=== PATIENT | female | born 1965 | race Caucasian/White ===

== ENCOUNTER → 2016-07-08 | Outpatient (CLI) | payer OTHER ==
--- NOTE | 2016-07-08 16:42 | MAMMOGRAPHY REPORT ---
BILATERAL DIGITAL SCREENING MAMMOGRAM TOMOSYNTHESIS WITH CAD: 07/08/2016 CLINICAL HISTORY: Routine screening examination. TECHNIQUE: Bilateral breast tomosynthesis in addition to standard 2D mammography was performed. Curr ent study was also evaluated with a Computer Aided Detection (CAD) system. COMPARISON: Comparison is made to exams dated: 07/06/2015 mammogram, 04/13/2013 mammogram, 05/31/2011 mammogram - [facility], 02/05/2007 mammogram, and 07/05/2014 mammogram - [facility]. BREAST COMPOSITION: The tissue of both breasts is heterogeneously dense, which may obscure small ma sses. FINDINGS: There is a faint clustered microcalcifications in the 12:00 posterior left breast, for wh ich additional spot magnification views are recommended. There is stable asymmetry in the upper inner posterior right breast, that appears similar on all jonny ilable prior mammograms dating back to at least 2006, and therefore likely benign. No suspicious ma ss or focal architectural distortion is seen bilaterally. IMPRESSION: ACR BI-RADS CATEGORY 0: INCOMPLETE EVALUATION: NEED ADDITIONAL IMAGING EVALUATION The faint clustered microcalcifications in the 12:00 left breast need additional evaluation. The patient will be called to schedule an appointment. Approximately 10% of breast cancers are not detected with mammography. A negative mammographic repor t should not delay biopsy if a clinically suggestive mass is present. Katja Frank M.D. ay/:07/08/2016 16:03:33 Physician Practice Coordinator: Allison OLIVO)(Maite), [facility] letter sent: Addl Imaging 0 BI-RADS Code: ACR BI-RADS Category 0: Incomplete Evaluation: Need Additional Imaging Evaluation
== END | disposition home or self-care (01) ==
LOC: C.MAMM 09:22
PROVIDERS: ATTEND Obstetrics & Gynecology
DX: Z12.31 Encounter for screening mammogram for malignant neoplasm of breast (principal); R92.0 Mammographic microcalcification found on diagnostic imaging of breast

== ENCOUNTER → 2016-07-18 | Outpatient (CLI) | payer OTHER ==
--- NOTE | 2016-07-18 12:36 | MAMMOGRAPHY REPORT ---
UNILATERAL LEFT DIGITAL DIAGNOSTIC MAMMOGRAM: 07/18/2016 CLINICAL HISTORY: Callback from screening mammogram for left breast calcifications. TECHNIQUE: Spot magnification left CC and ML views were obtained. COMPARISON: Comparison is made to exams dated: 07/08/2016 mammogram, 07/06/2015 mammogram, 07/05/2014 mammogram, 04/13/2013 mammogram, and 05/31/2011 mammogram - [facility]. BREAST COMPOSITION: The tissue of the left breast is heterogeneously dense, which may obscure small masses. FINDINGS: Spot magnification views of the left breast demonstrate a small 3 mm cluster of faint, pr edominantly punctate, calcifications within the left upper outer quadrant, best seen on the ML view. When compared to prior exams, the calcifications are likely stable compared to the 2015 exam, and possibly also the 2014 exam although difficult to make an accurate comparison due to differences in mammographic technique. The options of short interval follow-up versus biopsy were discussed with t he patient, and we will opt for biopsy at this time. Therefore, recommend stereotactic biopsy for f urther evaluation. IMPRESSION: ACR BI-RADS CATEGORY 4: SUSPICIOUS Small 3 mm cluster of faint calcifications in the left upper outer quadrant. The calcifications are indeterminate and stereotactic biopsy is recommended for further evaluation. A phone call was made to the physician's office to confirm faxed results were received. The patient has been verbally notified of the results. She tentatively scheduled the biopsy before leaving the department. Approximately 10% of breast cancers are not detected with mammography. A negative mammographic repor t should not delay biopsy if a clinically suggestive mass is present. Miriam Blackburn M.D. ah/:07/18/2016 11:15:32 Senior Loss Control Specialist: Gege VALERIO(R)(Maite), [facility] letter sent: Abnormal 4/5 BI-RADS Code: ACR BI-RADS Category 4: Suspicious
== END | disposition home or self-care (01) ==
LOC: C.MAMM 10:24
PROVIDERS: ATTEND Obstetrics & Gynecology
DX: R92.1 Mammographic calcification found on diagnostic imaging of breast (principal)

== ENCOUNTER → 2016-08-07 | Outpatient (CLI) | payer OTHER ==
--- NOTE | 2016-08-07 13:29 | Discharge Instructions ---
Discharge Instructions Procedure Procedure Date: Aug 07, 2016. Reason for visit: Left Calcifications. Discharge Discharge Date: Aug 07, 2016. Discharge Diagnosis: post left breast stereotactic guided biopsy Medications Restart Stopped Medication(s): May restart Aspirin tomorrow Instructions Activity Recommendations: Additional Limitations (see below) Return to School/Work: no limitations Recommended Home Diet: No Limitations Provider Instructions: ACTIVITY RECOMMENDATIONS: * No lifting, pushing, pulling or exercising the affected side for three days. RETURN TO SCHOOL/WORK: * You may return to work/school after the procedure, but do not perform any strenuous activities for 24 to 48 hours. MEDICATIONS: * Tylenol (two 325 mg) every four to six hours if needed for mild pain (if not allergic to Tylenol). DIET: * Resume previous diet. SPECIAL CARE INSTRUCTIONS: * Keep biopsy site dry for 24 hours. May shower after 24 hours, but do not soak (bathe) incision. * May remove Tegaderm (plastic patch) tomorrow AFTER showering. * Leave the steri-strips on for one week. Allow the steri-strips to fall off by themselves. If not off after one week, you may remove them. You may place a Bandaid crosswise over the strips, if desired. * Apply ice 10 minutes on and 10 minutes off as needed. * Wear a bra at bedtime to sleep more comfortably for 2-3 days. * Your referring physician should have the results after approximately 5 to 7 business days. * Call for unusual bleeding, fever, drainage, etc or if you have any questions call [phone] during normal business hours or after hours call Dr Frank, . FOLLOW UP VISIT: Follow-up with Referring Physician as scheduled. Maddie Negron Recommendations: Call your doctor if: * Temperature above 101 degrees * Pain not relieved by pain medicine ordered * There is increased drainage or redness from any incision * You have any unanswered questions or concerns. Your Doctors Instructions noted above were prepared by provider Katja Frank. Patient Signature Section: Patient Instructions Signature Page Delphine Sanchez Patient (or Guardian) Signature/Date: I have read and understand the instructions given to me by my caregivers. Caregiver/RN/Doctor Signature/Date: The above-named patient and/or guardian has received patient instructions on this date. + Original Patient Signature Page (only) stays with chart. Please make copy for patient.
--- NOTE | 2016-08-07 15:58 | MAMMOGRAPHY REPORT ---
UNILATERAL LEFT DIGITAL DIAGNOSTIC MAMMOGRAM: 08/07/2016 CLINICAL HISTORY: 50-year-old woman with an indeterminate cluster of microcalcifications in the uppe r outer quadrant of the left breast. She presented for stereotactic biopsy. Please refer to the report from left breast stereotactic biopsy performed at the same time for full detail. IMPRESSION: POST PROCEDURE IMAGING FOR MARKER PLACEMENT Please refer to the report from left breast stereotactic biopsy performed at the same time for full detail. Approximately 10% of breast cancers are not detected with mammography. A negative mammographic repor t should not delay biopsy if a clinically suggestive mass is present. Katja Frank M.D. ay/:08/07/2016 13:46:53 Diesel Retrofit Designer: Ashanti VALERIO(R)(M), [facility] BI-RADS Code: Post Procedure Imaging For Marker Placement
--- NOTE | 2016-08-07 15:58 | MAMMOGRAPHY REPORT ---
STEREOTACTIC GUIDED BIOPSY LEFT BREAST: 08/07/2016 CLINICAL HISTORY: Small faint indeterminate cluster of punctate microcalcifications in the upper out er middle one third of the left breast. Patient presents for stereotactic biopsy. COMPARISON: Comparison is made to exams dated: 07/18/2016 mammogram, 07/06/2015 mammogram, 07/05/2014 m ammogram, 04/13/2013 mammogram - [facility], 02/05/2007 mammogram, and 07/08/2016 laci mogram - [facility]. PATIENT CONSENT: After explaining the risks, benefits and alternatives of the procedure to the patie nt, informed consent was obtained both verbally and in writing. Specific risks include: Bleeding, i nfection, puncture of adjacent structure, nontarget biopsy, sampling error, metal allergy and medica tion reaction. PROCEDURE DESCRIPTION: A time-out was performed and the left breast was confirmed as the site of bio psy. The patient was placed prone on the stereotactic biopsy table and the breast was placed in late ral compression. A eap clinician image was obtained that demonstrated the clustered microcalcifications in q uestion. They are amenable to sterotactic biopsy. Then +15 and -15 stereo pair images were obtain ed. The calcifications were targeted utilizing the coordinates obtained by the computer. The skin w as prepped with Betadine. 1% buffered Lidocaine with and without epinipherine was administered as lo aida anesthesia. A small skin incision was made. Through the incision, the needle was inserted to th e depth determined by the computer. 10 samples were obtained using a [facility] 9-gauge vacuum-assi sted biopsy device. The specimen radiograph demonstrated nearly the entire cluster of microcalcifica tions, therefore, a metallic marker was placed at the biopsy site. There was no immediate complicati on. Hemostasis was achieved after several minutes of manual compression. The samples were sent to p athology in 2 containers, the first labeled "with calcifications", and the second labeled adjacent t issue. All of the samples were obtained from the same single biopsy site. Postprocedure CC and ML views of the left breast demonstrate a new dumbbell-shaped metallic biopsy m arker and no significant hematoma in the upper outer middle one third of the breast, at the site of the biopsied clustered microcalcifications. IMPRESSION: STEREOTACTIC GUIDED BIOPSY Status post left breast stereotactic guided biopsy of a faint cluster of punctate microcalcification s in the upper outer middle one third of the breast, with biopsy marker placed at the site. The patient will receive notification of the biopsy results from her referring physician. Katja Frank M.D. ay/:08/07/2016 14:23:40 Pipe Turner: Ashanti OLIVO)(Maite), [facility]
== END | disposition home or self-care (01) ==
LOC: C.MAMM 12:29
PROVIDERS: ATTEND Obstetrics & Gynecology
DX: R92.0 Mammographic microcalcification found on diagnostic imaging of breast (principal); N60.32 Fibrosclerosis of left breast

== ENCOUNTER → 2016-08-22 | Outpatient (CLI) | payer OTHER ==
[2016-08-22 15:23] LABS: ALT/SGPT 24 U/L (12-78); BLOOD UREA NITROGEN 13 mg/dl (7-18); BUN/CREATININE RATIO 15.1 (10-20); CALCIUM 9.5 mg/dl (8.5-10.1); CARBON DIOXIDE 26 mmol/L (21-32); CHLORIDE 104 mmol/L (98-107); CHOLESTEROL 161 mg/dl (0-200); CREATININE 0.85 mg/dl (0.60-1.20); GLUCOSE 82 mg/dl (70-99); POTASSIUM 3.8 mmol/L (3.5-5.1); SODIUM 140 mmol/L (136-145)
[2016-08-22 15:27] LABS: ALB/GLOB RATIO 1.1 (0.9-2); ALKALINE PHOSPHATASE 70 U/L (45-117); AST/SGOT 15 U/L (15-37); CHOLESTEROL/HDL RATIO 3.2; HDL CHOLESTEROL 51 mg/dl; LDL CHOLESTEROL CALCULATED 86 mg/dl; TRIGLYCERIDES 121 mg/dl (0-150); VERY LOW DENSITY LIPOPROT CALC 24 mg/dl
== END | disposition home or self-care (01) ==
LOC: C.LABSPEC 13:48
PROVIDERS: ATTEND Family Medicine
DX: Z00.00 Encounter for general adult medical examination without abnormal findings (principal); E78.2 Mixed hyperlipidemia

== ENCOUNTER → 2017-05-20 | Outpatient (CLI) | payer OTHER ==
[2017-05-20 18:22] LABS: BASO % 0.7 %; BASO ABS # 0.02 K/uL (0-0.2); COMPLETE YES; EOS % 1.1 %; HEMATOCRIT 33.6 % (37-47); IG% 3.9 %; LYMPH % 25.9 %; LYMPH ABS # 0.73 K/uL (1.2-3.4); MEAN CELL VOLUME 88.4 fL (80-100); MEAN CORPUSCULAR HEMOGLOBIN 31.8 pg (25-34); MEAN PLATELET VOLUME 8.9 fL (7.4-10.4); MONO % 10.3 %; NEUT % 58.1 %; PLATELET COUNT 141 K/uL (130-400); WHITE BLOOD COUNT 2.82 K/uL (4.8-10.8)
[2017-05-20 19:43] LABS: ALB/GLOB RATIO 1.1 (0.9-2); ALKALINE PHOSPHATASE 107 U/L (45-117); ALT/SGPT 37 U/L (12-78); AST/SGOT 77 U/L (15-37); BLOOD UREA NITROGEN 11 mg/dl (7-18); BUN/CREATININE RATIO 12.8 (10-20); CALCIUM 8.5 mg/dl (8.5-10.1); CARBON DIOXIDE 25 mmol/L (21-32); CHLORIDE 86 mmol/L (98-107); CREATININE 0.86 mg/dl (0.60-1.20); GLUCOSE 71 mg/dl (70-99); POTASSIUM 4.2 mmol/L (3.5-5.1); SODIUM 120 mmol/L (136-145)
== END | disposition home or self-care (01) ==
LOC: C.LABSPEC 17:57
PROVIDERS: ATTEND Family Medicine
DX: R07.89 Other chest pain (principal); R06.02 Shortness of breath

== ENCOUNTER 2017-05-22 10:58 | Inpatient (IN) | payer OTHER ==
[~2017-05-22] VITALS: Ht 175.3 cm; Wt 69.0 kg
[2017-05-22] MEDS ORDERED: CIPR1TAB10 PO (11:37)
[2017-05-22] MEDS ORDERED: PRAV20TA PO (11:37)
[2017-05-22] MEDS ORDERED: ASPI81TA28 PO (11:37)
[2017-05-22] MEDS ORDERED: PRED10TA PO (11:37)
[2017-05-22] MEDS ORDERED: VNTHFA/IN INH (11:37)
[2017-05-22] MEDS ORDERED: TRAMADOL HCL 50 MG TAB PO STA (12:02)
--- NOTE | 2017-05-22 12:23 | DIAGNOSTIC IMAGING REPORT ---
R SHOULDER MIN 2 VIEWS ROUTINE CLINICAL HISTORY: R shoulder pain pain COMPARISON: None. DISCUSSION: The bones and joint spaces appear intact. There is no evidence of fracture, dislocation or bony disease. Probable right hilar enlargement versus overlap artifact. CT of the chest suggested as initial evaluation. IMPRESSION: 1. No acute process of the right shoulder. 2. Potential enlargement right hilum with CT of the chest recommended to exclude nodular or hilar pathology. The above report was generated using voice recognition software. It may contain grammatical, syntax or spelling errors. Electronically signed by: Kenny Sunshine M.D. 05/22/2017 12:22 PM Dictated Date/Time: 05/22/2017 12:21 PM
[2017-05-22] MEDS ORDERED: OPTIRAY 320 IV PRN (12:45)
[2017-05-22 13:04] LABS: ISTAT CREATININE 0.7 mg/dl (0.6-1.3); ISTAT IONIZED CALCIUM 1.08 mmol/l (1.12-1.32); ISTAT POTASSIUM 3.9 mEq/L (3.3-5.0)
[2017-05-22 13:14] LABS: BASO % 0.2 %; BASO ABS # 0.01 K/uL (0-0.2); EOS % 0.7 %; EOS ABS # 0.03 K/uL (0-0.5); HEMOGLOBIN 12.1 g/dL (12.0-16.0); IG# 0.12 K/uL (0.00-0.02); LYMPH % 20.2 %; LYMPH ABS # 0.93 K/uL (1.2-3.4); MEAN CELL VOLUME 87.5 fL (80-100); MEAN CORPUSCULAR HEMOGLOBIN 32.1 pg (25-34); MEAN CORPUSCULAR HGB CONC 36.7 g/dl (32-36); MEAN PLATELET VOLUME 8.5 fL (7.4-10.4); MONO ABS # 0.32 K/uL (0.11-0.59); NEUT % 69.3 %; NEUT ABS # 3.19 K/uL (1.4-6.5); PLATELET COUNT 133 K/uL (130-400); RED CELL DISTRIBUTION WIDTH CV 12.4 % (11.5-14.5); RED CELL DISTRIBUTION WIDTH SD 39.3 fL (36.4-46.3)
[2017-05-22 13:30] LABS: CALCIUM 8.2 mg/dl (8.5-10.1); CREATININE 0.68 mg/dl (0.60-1.20); POTASSIUM 3.8 mmol/L (3.5-5.1)
[2017-05-22] MEDS ORDERED: ONDANSETRON INJ 2 MG/ML 2 ML VIAL IV STA (14:14)
[2017-05-22] MEDS ORDERED: MoRPHine SULFATE 4 MG/ML 1 ML CARP\\VIAL IV STA (14:14)
--- NOTE | 2017-05-22 14:14 | DIAGNOSTIC IMAGING REPORT ---
(CHEST) THORAX WITH CT DOSE: 212.35 mGy.cm HISTORY: Pain hx of pneumonia; now right upper arm pain TECHNIQUE: Multiaxial CT images of the chest were performed following the intravenous administration of contrast. A dose lowering technique was utilized adhering to the principles of ALARA. COMPARISON: Right shoulder same date FINDINGS: Lobular 4.3 cm right suprahilar mass. Mass is contiguous with that of confluent adenopathy involving the right hilum as well as mediastinum. Maximum dimension in the precarinal region is 6.3 cm with additional adenopathy anterior to the trachea measuring 2.5 cm. Solid complex partially calcified nodule left thyroid. The hilar/right mediastinal mass shows considerable narrowing of the right mainstem bronchus several centimeters from its origin. Narrowing primarily involves the right upper lobe bronchial region. No significant left hilar adenopathy. Additionally anterior mid mediastinal adenopathy is present in the substernal region measuring up to 1.4 cm. Moderate compromise in vascular flow to the right upper lobe pulmonary vasculature as well as the right middle lobe pulmonary vasculature. Minimal basilar atelectatic change. 5 mm additional nodule transaxial image 46 right base. Potential additional right paravertebral component measuring 2.0 x 1.5 cm transaxial image 12. This is at the right T4-T5 level of the thoracic spine. No definite bony destructive change is present. Limited evaluation the upper abdomen demonstrates probable hepatic metastatic disease. Largest deposit on this limited study is in the superior right hepatic lobe region measuring 3.2 cm. Additional nodules are present the right as well as left hepatic lobe. IMPRESSION: 1. Right upper lobe mass measuring 4.3 cm. 2. Mass continues to involve the right hilum as well as mid mediastinum with dimensions of keisha and hilar/mediastinal pathology measuring from 2.5 to 6.3 cm. 3. Mass compromises the right hilar arterial vasculature as well as upper lobe right mainstem bronchus. 4. Additional nodular density right lung base as well as right paravertebral region at T4-T5. 6. Hepatic metastatic disease. 7. Neoplastic process is the diagnosis of exclusion. The above report was generated using voice recognition software. It may contain grammatical, syntax or spelling errors. Electronically signed by: Kenny Sunshine M.D. 05/22/2017 2:13 PM Dictated Date/Time: 05/22/2017 2:04 PM
[2017-05-22] MEDS ORDERED: ACETAMINOPHEN 325 MG TAB PO PRN (15:00)
--- NOTE | 2017-05-22 15:32 | History and Physical ---
History & Physical Date & Time of Service: May 22, 2017 ~ 14:30 Chief Complaint: Pain In Right Arm Primary Care Physician: Mic Garcia M.D. ([place]) History of Present Illness 51 year old female who presents to the ED with right arm pain. About 3 weeks ago patient reports she had an episode of nausea and vomiting. She reports that since that time, she has had shortness of breath with exertion. 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 She was noted to be wheezing on exam and was referred to her PCP. She was started on Cipro and Prednisone for a suspected pneumonia. Patient reports that after one day of taking these medicines her pulmonary symptoms resolved. She reports that last night she developed right upper arm pain. Pain was moderate in intensity, keeping her up most of the night. She tried heat, ice, and Bengay; none of which helped. She called her PCPs office today who referred her to the ED for further evaluation. Patient denies cough and sputum production. No fevers or chills. Reports a good appetite and denies unintentional weight loss. No further GI complaints aside from the aforementioned. She denies chest pain. No lightheadedness, dizziness, diaphoresis, or syncopal events. No urinary symptoms. In the ED, patient had a CT chest that showed right upper lobe mass measuring 4.3 cm. Labs show hyponatremia with sodium 120. Patient is hemodynamically stable. Past Medical/Surgical History Medical Problems: (1) HLD (hyperlipidemia) Status: Chronic (2) Migraine Status: Chronic Surgical Problems: (1) Hx of lumpectomy Status: Chronic (2) Previous section Status: Chronic (3) S/P breast biopsy Status: Chronic Family History Diabetes mellitus MOTHER FH: CAD (coronary artery disease) FATHER BROTHER Social History Smoking Status: Former Smoker Alcohol Use: occasionally Marital Status: Allergies Coded Allergies: No Known Allergies (Unverified , 05/22/17) Home Medications Scheduled Aspirin (Aspirin Ec), 81 MG PO DAILY Ciprofloxacin Hcl (Cipro), 500 MG PO BID Pravastatin (Pravachol ), 20 MG PO DAILY Prednisone (Prednisone), 0 PO UD Scheduled PRN Albuterol Hfa (Ventolin Hfa), 1 PUFFS INH TID PRN for SOB/Wheezing Review of Systems ROS per HPI, all other systems reviewed and negative Physical Exam Vital Signs Date Time Temp Pulse Resp B/P (MAP) Pulse Ox O2 Delivery O2 Flow Rate FiO2 05/22/17 14:58 58 16 134/72 100 Room Air 05/22/17 13:30 57 16 134/72 100 Room Air 05/22/17 11:06 36.4 72 20 137/83 100 Room Air General Appearance: WD/WN, no apparent distress Head: normocephalic, atraumatic Eyes: normal inspection, EOMI, sclerae normal ENT: hearing grossly normal, + pertinent finding (mucous membranes moist) Neck: supple, no JVD, trachea midline Respiratory/Chest: lungs clear, normal breath sounds, no respiratory distress Cardiovascular: regular rate, rhythm, no edema, normal peripheral pulses Abdomen/GI: normal bowel sounds, non tender, soft, no organomegaly Extremities/Musculoskelatal: normal inspection, no calf tenderness, normal capillary refill Neurologic/Psych: no motor/sensory deficits, alert, normal mood/affect, oriented x 3 Skin: normal color, warm/dry Diagnostics Laboratory Results Results Past 24 Hours Test 05/22/17 12:40 05/22/17 12:51 05/22/17 15:00 Range/Units White Blood Count 4.60 4.8-10.8 K/uL Red Blood Count 3.77 4.2-5.4 M/uL Hemoglobin 12.1 12.0-16.0 g/dL Hematocrit 33.0 37-47 % Mean Corpuscular Volume 87.5 80-100 fL Mean Corpuscular Hemoglobin 32.1 25-34 pg Mean Corpuscular Hemoglobin Concent 36.7 32-36 g/dl Platelet Count 133 130-400 K/uL Mean Platelet Volume 8.5 7.4-10.4 fL Neutrophils (%) (Auto) 69.3 % Lymphocytes (%) (Auto) 20.2 % Monocytes (%) (Auto) 7.0 % Eosinophils (%) (Auto) 0.7 % Basophils (%) (Auto) 0.2 % Neutrophils # (Auto) 3.19 1.4-6.5 K/uL Lymphocytes # (Auto) 0.93 1.2-3.4 K/uL Monocytes # (Auto) 0.32 0.11-0.59 K/uL Eosinophils # (Auto) 0.03 0-0.5 K/uL Basophils # (Auto) 0.01 0-0.2 K/uL RDW Standard Deviation 39.3 36.4-46.3 fL RDW Coefficient of Variation 12.4 11.5-14.5 % Immature Granulocyte % (Auto) 2.6 % Immature Granulocyte # (Auto) 0.12 0.00-0.02 K/uL Sodium Level 120 136-145 mmol/L Potassium Level 3.8 3.5-5.1 mmol/L Chloride Level 89 98-107 mmol/L Carbon Dioxide Level 25 21-32 mmol/L Anion Gap 6.0 17.0 16-25 mmol/L Blood Urea Nitrogen 10 7-18 mg/dl Creatinine 0.68 0.60-1.20 mg/dl Est Creatinine Clear Calc Drug Dose 103.5 ml/min Estimated GFR () 118.2 Estimated GFR (Non- 102.0 BUN/Creatinine Ratio 15.5 10-20 Random Glucose 85 70-99 mg/dl Calcium Level 8.2 8.5-10.1 mg/dl Bedside Hemoglobin 11.6 12.0-16.0 g/dl Bedside Hematocrit 34 37-47 % Bedside Sodium 122 135-144 mEq/L Bedside Potassium 3.9 3.3-5.0 mEq/L Bedside Chloride 88 101-112 mEq/L Bedside Total CO2 23 24-31 mEq/l Bedside Blood Urea Nitrogen 10 7-18 mg/dl Bedside Creatinine 0.7 0.6-1.3 mg/dl Bedside Glucose (other) 90 70-99 mg/dl Bedside Ionized Calcium (Ti) 1.08 1.12-1.32 mmol/l Diagnostic Radiology CT CHEST IMPRESSION: 1. Right upper lobe mass measuring 4.3 cm. 2. Mass continues to involve the right hilum as well as mid mediastinum with dimensions of keisha and hilar/mediastinal pathology measuring from 2.5 to 6.3 cm. 3. Mass compromises the right hilar arterial vasculature as well as upper lobe right mainstem bronchus. 4. Additional nodular density right lung base as well as right paravertebral region at T4-T5. 6. Hepatic metastatic disease. 7. Neoplastic process is the diagnosis of exclusion. RIGHT SHOULDER XR IMPRESSION: 1. No acute process of the right shoulder. 2. Potential enlargement right hilum with CT of the chest recommended to exclude nodular or hilar pathology. 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 Ashanti Sethi RUL LUNG MASS - new diagnosis; former smoker - hepatic metastatic disease also noted - will check LFTs - will need biopsy - case discussed with Dr. Giordano HLD - continue statin pending LFTs DVT PROPHYLAXIS - SQ Lovenox DISPO - In my clinical judgment this beneficiary meets acute admission criteria, established by [facility], that includes being hospitalized through two midnights. ADDENDUM: This is a 51 year old female with a PMH of tobacco use (stopped smoking about three years ago) presents with R arm pain. States that three weeks ago, she started with nausea/vomiting. 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 She was given antibiotics for possible pneumonia and she was also prescribed prednisone. She felt better, but last night, she developed severe R arm pain. Tried over the counter medications , bengay cream, etc. but did not work. She came to the ER for further eval. She had Shoulder X-ray showing a R hilum enlargement. She then had a CT of the chest showing a mass. Denies fevers/chills, chest pain. Plan for her is to have a bronchoscopy in the AM for possible biopsy as per pulm. Her sodium was 122 - will be on fluid restriction due to possible SIADH (low urine and serum osm) nephrology consulted and management appreciated added morphine PRN for shoulder VTE Prophylaxis VTE Risk Assessment Done? Y/N: Yes Risk Level: Moderate
--- NOTE | 2017-05-22 15:54 | EMERGENCY ROOM VISIT NOTE ---
ED Visit Note First contact with patient: 11:42 Chief Complaint: Right upper arm pain. History of Present Illness: Ms. Sanchez is a 51-year-old white female who ambulates into the ED accompanied by her complaining of right upper humeral pain. Historically patient reports on Friday she was seen by her primary care provider, Dr. Humphries, and was diagnosed with a right suprahilar are focal area of consolidation. She was diagnosed with pneumonia and started on prednisone, albuterol and ciprofloxacin. She reports she has taken one dose of the Cipro and prednisone but has not used her inhaler. Patient reports last night approximately 12 hours before she arrived in the emergency department she developed right upper humeral pain. She reports since that time her pain has been constant but has waxed and waned in intensity. She describes her pain as a cramping sensation. Currently she rates her discomfort 3/10 but does report its been incised 10/10. Intermittently the pain does radiate down towards the elbow, into the forearm and the posterior hand. She has not identified any aggravating or alleviating factors related to the pain. She reports she has tried BenGay, and unspecified Voodoo ointment, ice and heat without relief. She denies any associated symptoms including fevers, chills, sweats, skin eruptions, skin color changes, recent direct or repetitive trauma, neck pain, thoracic back pain, chest pain, shortness of breath, hemoptysis, previous clots, claudication, cramping, recent surgery/inactivity/extended travel, abdominal pain, nausea, vomiting, extremity weakness/numbness/tingling. Review of Systems: As noted above in history of present illness. All body systems were reviewed and found to be negative as noted above. Past Medical History: As previously noted, status post section and right breast lumpectomy. Current Medications: As previously noted and aspirin and Pravachol Allergies to Medications: Patient denies. Social History: Patient is not employed; she lives with her and feels safe in her home environment; she denies tobacco and alcohol use. Physical Examination: Vital Signs: Date Time Temp Pulse Resp B/P (MAP) Pulse Ox O2 Delivery O2 Flow Rate FiO2 05/22/17 14:58 58 16 134/72 100 Room Air 05/22/17 13:30 57 16 134/72 100 Room Air 05/22/17 11:06 36.4 72 20 137/83 100 Room Air GENERAL: 51-year-old female in mild to moderate distress due to pain, nontoxic- appearing, afebrile and hemodynamically stable. NEUROLOGICAL: Awake, alert and oriented to person, place and time. Answering questions appropriately and following commands. Normal gait. Good hand eye coordination. No focal motor sensory deficits. SKIN: Warm, dry and pink. No soft tissue eruptions or trauma noted. HEENT: Atraumatic and normocephalic. BACK: No tenderness over the bony cervical and thoracic spine. Mild tenderness in the upper right trapezius with minimal spasm. THORAX: Lungs sounds are clear to auscultation and equal bilaterally with symmetrical chest wall. No wheezing, rales or rhonchi. No crepitus, tenderness , subcutaneous air or deformities noted. HEART: Regular rate and rhythm. No gallops, rubs or murmurs are appreciated. ABDOMEN: Flat, soft and nontender. Positive bowel sounds in all quadrants. No guarding, rigidity or organomegaly. EXTREMITIES: Moves all extremities well on command and with purpose. All distal neurovascular statuses are intact and equal bilaterally. Upper Extremities: No gross bony deformity. No tenderness over the bony structures of the right shoulder. Full range of motion in all movements of the shoulder, elbow, forearm and wrist. 5/5 muscle strength in all movements of the shoulder , elbow, forearm and wrist. Throughout the right upper extremity the skin is warm and pink and capillary refill is brisk. She was able to distinguish light sensations through all dermatomes. ED Course: Patient is assessed as noted above. Patient's medication list was reviewed. Test 05/22/17 12:40 05/22/17 12:51 05/22/17 15:36 05/22/17 15:41 Range/Units White Blood Count 4.60 4.8-10.8 K/uL Red Blood Count 3.77 4.2-5.4 M/uL Hemoglobin 12.1 12.0-16.0 g/dL Hematocrit 33.0 37-47 % Mean Corpuscular Volume 87.5 80-100 fL Mean Corpuscular Hemoglobin 32.1 25-34 pg Mean Corpuscular Hemoglobin Concent 36.7 32-36 g/dl Platelet Count 133 130-400 K/uL Mean Platelet Volume 8.5 7.4-10.4 fL Neutrophils (%) (Auto) 69.3 % Lymphocytes (%) (Auto) 20.2 % Monocytes (%) (Auto) 7.0 % Eosinophils (%) (Auto) 0.7 % Basophils (%) (Auto) 0.2 % Neutrophils # (Auto) 3.19 1.4-6.5 K/uL Lymphocytes # (Auto) 0.93 1.2-3.4 K/uL Monocytes # (Auto) 0.32 0.11-0.59 K/uL Eosinophils # (Auto) 0.03 0-0.5 K/uL Basophils # (Auto) 0.01 0-0.2 K/uL RDW Standard Deviation 39.3 36.4-46.3 fL RDW Coefficient of Variation 12.4 11.5-14.5 % Immature Granulocyte % (Auto) 2.6 % Immature Granulocyte # (Auto) 0.12 0.00-0.02 K/uL Sodium Level 120 136-145 mmol/L Potassium Level 3.8 3.5-5.1 mmol/L Chloride Level 89 98-107 mmol/L Carbon Dioxide Level 25 21-32 mmol/L Anion Gap 6.0 17.0 16-25 mmol/L Blood Urea Nitrogen 10 7-18 mg/dl Creatinine 0.68 0.60-1.20 mg/dl Est Creatinine Clear Calc Drug Dose 103.5 ml/min Estimated GFR () 118.2 Estimated GFR (Non- 102.0 BUN/Creatinine Ratio 15.5 10-20 Random Glucose 85 70-99 mg/dl Calcium Level 8.2 8.5-10.1 mg/dl Bedside Hemoglobin 11.6 12.0-16.0 g/dl Bedside Hematocrit 34 37-47 % Bedside Sodium 122 135-144 mEq/L Bedside Potassium 3.9 3.3-5.0 mEq/L Bedside Chloride 88 101-112 mEq/L Bedside Total CO2 23 24-31 mEq/l Bedside Blood Urea Nitrogen 10 7-18 mg/dl Bedside Creatinine 0.7 0.6-1.3 mg/dl Bedside Glucose (other) 90 70-99 mg/dl Bedside Ionized Calcium (Ti) 1.08 1.12-1.32 mmol/l Right Shoulder X-Rays: Were read by myself and the radiologist showing no acute fractures or dislocation or bony diseases of the right shoulder. Radiologist noted probable right hilar enlargement versus overlapping artifact and recommended a CT. Patient was initially given 50 mg of Ultram by mouth for pain. An IV lock was initiated, bloods were drawn for testing as noted above and patient was given 4 mg of morphine IV for pain and 4 mg of Zofran IV. Patient was reassessed multiple times during her stay in the emergency department. CT Chest with IV Contrast: Was reviewed by myself and read by the radiologist showing a 4.3 cm right upper lobe mass. Mass continues to involve the right hilum as well as the mid medial Renee all areas measuring 2.5-6.3 cm. Mass compromises the right hilar artery vasculature and the right upper lobe mainstem bronchus. Additionally nodular density in the right lung base and the right paravertebral region at T5 T4. Right hepatic mass consistent with metastatic disease. Patient was reassessed multiple times during her stay in the emergency department. Patient's case was reviewed with ; we agreed on diagnostic approach , treatment, disposition and plan. Patient's case was consulted with case management and [facility]FR[facility] Infante[facility]. Patient was educated about today's findings. Clinical Impression: Right upper lobe mass. Right arm pain. Decision-Making: Initially my differential diagnosis I considered arthritis, pathological fracture, tendinitis, lymphadenopathy from pneumonia, pulmonary mass, pulmonary embolism and other causes. Patient's blood pressure: Normotensive. Blood pressure disposition: Nonapplicable. Disposition and Plan: Patient to be [facility] in the [facility]; please see their notes and orders for final disposition and plan.
[2017-05-22 16:14] VITALS: O2SAT 97; Ht 175.3 cm; Wt 69.0 kg
[2017-05-22 16:14] LABS: INR 1.1 (0.9-1.1)
[2017-05-22 16:21] LABS: ALBUMIN 3.4 gm/dl (3.4-5.0); TOTAL PROTEIN 6.2 gm/dl (6.4-8.2)
[2017-05-22] MEDS ORDERED: ENOXAPARIN 40 MG/0.4 ML SYR SQ SCH (18:00)
--- NOTE | 2017-05-22 18:25 | Pulmonary Consultation ---
History General Date of Service: May 22, 2017. Stated Complaint: Hyponatremia, pulmonary mass HPI The patient is a 51 year old female who presents to [facility] with complaints of Hyponatremia. The patient's primary care provider is [facility] 51-year-old female admitted with hyponatremia and pulmonary mass. Patient has an overall benign PmHx: Notably only consistent for benign breast mass, postmenopausal, migraines and hyperlipidemia. Patient was in her normal state health until 3 weeks ago around Thanksgiving time when she noted she over 8 and started having some mild GI type signs and symptoms any burping. She also noted since then increasing dyspnea on exertion, walking her horses up hills. She then went to her OBGYN for her annual exam it was noted at that time to have unilateral wheezing on the left side. She was then seen by her primary care physician will also noted unilateral wheezing and started her on Cipro and then following the next day as the patient had increasing dyspnea was started on prednisone. Her wheezing as well as shortness of breath per the patient has completely resolved. Since 04/07 last night the patient has had excruciating right shoulder pain which seems to be localized over her right upper outer arm mortise C3-C4 distribution. At this time the pain is well controlled after receiving morphine. Over the last year the patient denies: Fever, chills, unintentional weight loss, hemoptysis, chronic cough, fatigue, myalgias, vision changes, vertigo, polydipsia, nausea, vomiting, rigors or night sweats. I should also note the patient describe some changes in her left 2nd and 3rd toes which are associated with her nail bed and mild arcus discoloration. CT thorax with contrast 4.3 centimeter suprahilar mass, with notable adenopathy in the right hilum and mediastinum with associated contralateral lymph nodes enlarged, compression of right mainstem possible right upper lobe bronchi, anterior mediastinal adenopathy appreciated substernal region 1.4 cm, moderate compression of right vascular tree, possible paravertebral/T4-T5 spinal lesion, possible hepatic metastatic disease Right shoulder x-ray Within normal limits Serum sodium POC: 122 Serum chloride POC: 88 Ionized calcium POC: 1.08 Past Medical History 1. History of Menopause 2. Breast Lump (prior post cystic microcalcification) 3. Hyperlipidemia 4. Migraines Surgical History 1. History of Section 2. History of Tubal Ligation 3. Left breast FNA Family History Family History 1. Denied: Family history of Cancer, colon 2. Denied: Family history of malignant neoplasm of breast 3. Denied: Family history of malignant neoplasm of uterus 4. Denied: Family history of ovarian cancer Social History Activities: Horseback riding Former smoker (significant past smoking history discontinued 2 years prior) Current Meds 1. Aspirin 81 MG TABS; Therapy: (Recorded:[id number]) to Recorded 2. Pravachol 40 MG Oral Tablet; Therapy: (Recorded:[id number]) to Recorded Allergies Medication 1. No Known Drug Allergies Historian: patient, partner, EMS Review of Systems Constitutional: reports: as stated in HPI Eyes: reports: no symptoms ENT: reports: no symptoms Cardiovascular: reports: no symptoms Respiratory: reports: as stated in HPI Gastrointestinal: reports: as stated in HPI Genitourinary - Female: reports: no symptoms Musculoskeletal: reports: as stated in HPI Integumentary: reports: no symptoms Neurologic: reports: as stated in HPI Psychiatric: reports: no symptoms Endocrine: no symptoms Hematologic / Lymphatic: no symptoms Allergic / Immunologic: no symptoms Past Medical History Past Medical History: Please refer to HPI Past Surgical History: Please refer to HPI Family History Diabetes mellitus MOTHER FH: CAD (coronary artery disease) FATHER BROTHER Please refer to HPI Social History Smoking Status: Former Smoker Marital status: Allergies Coded Allergies: No Known Allergies (Unverified , 05/22/17) Current Medications Reported Home Medications Medications Dose Route/Sig Max Daily Dose Days Date Category Dose Instructions Cipro (Ciprofloxacin Hcl) 500 Mg Tab 500 Mg PO BID 05/22/17 Reported STARTED 05/21/17 Prednisone 10 Mg Tab 0 PO UD 05/22/17 Reported STERAPRED 10MG 12 DAY STARTED 05/21/17 Ventolin Hfa (Albuterol) 200 Puffs/37602 Mcg Aers 1 Puffs INH TID PRN 05/22/17 Reported Pravachol (Pravastatin Sodium) 20 Mg Tab 20 Mg PO DAILY 05/22/17 Reported Aspirin Ec (Aspirin) 81 Mg Tab 81 Mg PO DAILY 05/22/17 Reported Physical Physical Exam Vital Signs: Date Time Temp Pulse Resp B/P (MAP) Pulse Ox O2 Delivery O2 Flow Rate FiO2 05/22/17 16:14 97 Room Air 05/22/17 15:54 59 16 140/82 97 Room Air 05/22/17 14:58 58 16 134/72 100 Room Air 05/22/17 13:30 57 16 134/72 100 Room Air 05/22/17 11:06 36.4 72 20 137/83 100 Room Air General Appearance: WELL-APPEARING, NO APPARENT DISTRESS Head: NORMOCEPHALIC, ATRAUMATIC Eyes: PERRLA, NO DISCHARGE, EOMI, SCLERAE NORMAL, CONJUNCTIVAE NORMAL ENT: NORMAL EAR EXAM, NORMAL NASAL EXAM, NORMAL MOUTH EXAM, NORMAL THROAT EXAM , NORMAL DENTAL EXAM, NORMAL SINUS EXAM Neck: NORMAL RANGE OF MOTION, NO TENDERNESS, TRACHEA MIDLINE, NO STRIDOR, SUPPLE, NO THYROMEGALY, NO LYMPHADENOPATHY, NO MENINGISMUS, NO NUCHAL RIGIDITY Respiratory: BREATH SOUNDS NORMAL, CLEAR TO AUSCULTATION, CLEAR TO PERCUSSION, NO RESPIRATORY DISTRESS Cardiovasular: REGULAR RATE/RHYTHM, NORMAL S1S2, NO M/G/R, NO MURMUR, NO GALLOP , NO RUB, NO JVD Abdomen: NON TENDER, NORMAL BOWEL SOUNDS, NO REBOUND, NO MASSES, NO GUARDING, NO ORGANOMEGALY, NORMAL RECTAL EXAM Genitourinary - Female: EXTERNAL GENITALIA NORMAL Back: NORMAL INSPECTION, NO MIDLINE TENDERNESS, NO CVA TENDERNESS, NO PARAVERTEBRAL TTP Upper Extremities: NO EDEMA, NO DEFORMITY, NORMAL ROM Lower Extremities: NO EDEMA, NO DEFORMITY, other (Left dose to N3 with mild discoloration the nail bed, good capillary refill no Osler nodes noted) Pulses: carotid (R) (2+), carotid (L) (2+), posterior tibial (R) (2+), posterior tibial (L) (2+) Neuro: ALERT, ORIENTED x 3, NORMAL MOTOR EXAM, NORMAL SENSATION, NORMAL CEREBELLAR EXAM, NORMAL SPEECH, NORMAL GAIT, NORMAL MEMORY Reflexes: biceps (R) (2+), bicpes (L) (2+), patellar (R) (2+), patellar (L) (2+ ) Babinski Testing: right (downgoing), left (downgoing) Psychiatric: NORMAL AFFECT, NO SUICIDAL IDEATION Diagnostics Labs Results Past 24 Hours Test 05/22/17 12:40 05/22/17 12:51 05/22/17 15:41 05/22/17 16:55 Range/Units White Blood Count 4.60 4.8-10.8 K/uL Red Blood Count 3.77 4.2-5.4 M/uL Hemoglobin 12.1 12.0-16.0 g/dL Hematocrit 33.0 37-47 % Mean Corpuscular Volume 87.5 80-100 fL Mean Corpuscular Hemoglobin 32.1 25-34 pg Mean Corpuscular Hemoglobin Concent 36.7 32-36 g/dl Platelet Count 133 130-400 K/uL Mean Platelet Volume 8.5 7.4-10.4 fL Neutrophils (%) (Auto) 69.3 % Lymphocytes (%) (Auto) 20.2 % Monocytes (%) (Auto) 7.0 % Eosinophils (%) (Auto) 0.7 % Basophils (%) (Auto) 0.2 % Neutrophils # (Auto) 3.19 1.4-6.5 K/uL Lymphocytes # (Auto) 0.93 1.2-3.4 K/uL Monocytes # (Auto) 0.32 0.11-0.59 K/uL Eosinophils # (Auto) 0.03 0-0.5 K/uL Basophils # (Auto) 0.01 0-0.2 K/uL RDW Standard Deviation 39.3 36.4-46.3 fL RDW Coefficient of Variation 12.4 11.5-14.5 % Immature Granulocyte % (Auto) 2.6 % Immature Granulocyte # (Auto) 0.12 0.00-0.02 K/uL Prothrombin Time 11.8 9.0-12.0 SECONDS Prothromb Time International Ratio 1.1 0.9-1.1 Sodium Level 120 136-145 mmol/L Potassium Level 3.8 3.5-5.1 mmol/L Chloride Level 89 98-107 mmol/L Carbon Dioxide Level 25 21-32 mmol/L Anion Gap 6.0 17.0 16-25 mmol/L Blood Urea Nitrogen 10 7-18 mg/dl Creatinine 0.68 0.60-1.20 mg/dl Est Creatinine Clear Calc Drug Dose 103.5 ml/min Estimated GFR () 118.2 Estimated GFR (Non- 102.0 BUN/Creatinine Ratio 15.5 10-20 Random Glucose 85 70-99 mg/dl Calcium Level 8.2 8.5-10.1 mg/dl Bedside Hemoglobin 11.6 12.0-16.0 g/dl Bedside Hematocrit 34 37-47 % Bedside Sodium 122 135-144 mEq/L Bedside Potassium 3.9 3.3-5.0 mEq/L Bedside Chloride 88 101-112 mEq/L Bedside Total CO2 23 24-31 mEq/l Bedside Blood Urea Nitrogen 10 7-18 mg/dl Bedside Creatinine 0.7 0.6-1.3 mg/dl Bedside Glucose (other) 90 70-99 mg/dl Bedside Ionized Calcium (Ti) 1.08 1.12-1.32 mmol/l Osmolality 259 280-300 mOsm/kg Total Bilirubin 0.5 0.2-1 mg/dl Direct Bilirubin 0.1 0-0.2 mg/dl Aspartate Amino Transf (AST/SGOT) 63 15-37 U/L Alanine Aminotransferase (ALT/SGPT) 40 12-78 U/L Alkaline Phosphatase 99 45-117 U/L Total Protein 6.2 6.4-8.2 gm/dl Albumin 3.4 3.4-5.0 gm/dl Urine Color YELLOW Urine Appearance CLEAR CLEAR Urine pH 7.5 4.5-7.5 Urine Specific [place] 1.031 1.000-1.030 Urine Protein NEG NEG Urine Glucose (UA) NEG NEG Urine Ketones NEG NEG Urine Occult Blood NEG NEG Urine Nitrite NEG NEG Urine Bilirubin NEG NEG Urine Urobilinogen NEG NEG Urine Leukocyte Esterase NEG NEG Urine WBC (Auto) 0 0-5 /hpf Urine RBC (Auto) 0-4 0-4 /hpf Urine Hyaline Casts (Auto) 0 0-5 /lpf Urine Epithelial Cells (Auto) 0-5 0-5 /lpf Urine Bacteria (Auto) NEG NEG Urine Osmolality 317 500-800 mOms/kg Urine Random Sodium 58 mEq/L Test 05/22/ 18:00 Range/Units Diagnostic Radiology Please refer to HPI Impression Assessment and Plan 51-year-old female admitted with hyponatremia and lung mass: 1. 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 At this time the patient and of agreed to go through EBUS bronchoscopy for further evaluation and possible staging. I will place the patient NPO after midnight and discussed the case and timing with the operating room tomorrow. I will also perform an EKG prior to intervention.
[2017-05-22] MEDS ORDERED: KETOROLAC TROMETHAMINE 15 MG/ML VIAL IV. PRN (18:30)
[2017-05-22 18:31] VITALS: BP 109/70; PULSE 71; TEMP 36.4; O2SAT 100
--- NOTE | 2017-05-22 18:32 | Nephrology Consultation ---
Nephrology Consultation Date of Consultation: May 22, 2017. Attending Physician: Dr Howard Requesting Physician: Dr Agee Reason for Consultation: Hyponatremia History of Present Illness Active 51 year old female w/ hx HL, migraines, recent outpt tx for pneumonia came to ER today for eval of 12-18 hr hx of moderate intensity R arm pain. Workup revealed previously undiagnosed RUL 4 cm lung mass and serum sodium 120. She endorses 3 wks exertional dyspnea and 3 days back started cipro and then 2 days back inhaler/ prednisone for pneumonia. She had seen her pcp on ; was told 05/20 her sNa was low but cannot recall values. Here, her serum osm are 259; urine studies are pending. Most recent studies in our system show sodium 140 spring 2016; baseline creatinine 0.7-0.9. Her renal function is at baseline. Denies prior hx of hyponatremia. [facility] outpt records show no more recent labs or dxs. Pt reports that just after thanksgiving she had a few days of N/v and odd tastes to food <> former improved but latter did not. She continued her usual regimen of caring for her 3 horses including stall cleaning and moving haybales, frequent/routine exercise videos. But shortly after those GI sx, she developed exertional dyspnea <> could not go up stairs or walk small incline in the field w/o having to rest. No cough or f. Also developed frequent belching same timeframe. Arm pain developed last evening originally as R posterior shoulder pain then down R arm now focused in RUE. took 2 motrin for this; no other nsaids; tried lots of other symptomatic measures and came in today. did have migraine past weekend and took 2 excedrin for this. no n/v w/ this migraine; drinks 80 oz water daily as a goal for health. No balance issues , no confusion, no recent n/v. not currently dyspneic. Also notes L foot has had discolored toenail bases for at least past week. Very hungry in our interview; still w/ uncontrolled arm pain Past Medical/Surgical History -hyperlipidemia -migraine -s/p lumpectomy 1992; biopsy past few years -reformed tobacco user Family History Diabetes mellitus MOTHER FH: CAD (coronary artery disease) FATHER BROTHER Social History Smoking Status: Former Smoker Alcohol Use: occasionally Drug Use: none Marital Status: Housing Status: lives with family Allergies Coded Allergies: No Known Allergies (Unverified , 05/22/17) Medications Current Inpatient Medications Medications (Trade) Dose Ordered Sig/Ayanna Route Start Time Stop Time Status Last Admin Dose Admin Ioversol (Optiray 320) 111 ml UD PRN IV 05/22/17 12:45 05/26/17 12:44 Acetaminophen (Tylenol Tab) 650 mg Q4H PRN PO 05/22/17 15:00 06/21/17 14:59 Ondansetron HCl (Zofran Inj) 4 mg Q6H PRN IV 05/22/17 15:00 06/21/17 14:59 Enoxaparin Sodium (Lovenox Inj) 40 mg Q24H SQ 05/22/17 18:00 06/21/17 17:59 Aspirin (Ecotrin Tab) 81 mg DAILY PO 05/23/17 08:00 06/22/17 08:59 Pravastatin Sodium (Pravachol Tab) 20 mg DAILY PO 05/23/17 08:00 06/22/17 08:59 Home Meds and Scripts Medications Dose Route/Sig Max Daily Dose Days Date Category Dose Instructions Cipro (Ciprofloxacin Hcl) 500 Mg Tab 500 Mg PO BID 05/22/17 Reported STARTED 05/21/17 Prednisone 10 Mg Tab 0 PO UD 05/22/17 Reported STERAPRED 10MG 12 DAY STARTED 05/21/17 Ventolin Hfa (Albuterol) 200 Puffs/47094 Mcg Aers 1 Puffs INH TID PRN 05/22/17 Reported Pravachol (Pravastatin Sodium) 20 Mg Tab 20 Mg PO DAILY 05/22/17 Reported Aspirin Ec (Aspirin) 81 Mg Tab 81 Mg PO DAILY 05/22/17 Reported Review of Systems Constitutional: + fatigue (has not slept since yesterday d/t pain), No fever, No weakness Eyes: No worsening of vision ENT: No hearing loss Respiratory: + see HPI, + dyspnea on exertion, No cough Cardiac: No chest pain, No edema, No palpitations Abdomen: + see HPI, + problem reported (burping), No pain, No nausea, No vomiting, No diarrhea Musculoskeletal: + problem reported (R arm pain in joints and mm; no swelling) Female : No dysuria, No urinary frequency, No hematuria Neuro: No memory loss, No weakness, No numbness/tingling, No balance problems Psych: No depression symptoms, No anxiety Endo: No fatigue, No excessive urination Skin: No rash, No new/changing skin lesions Physical Exam Date Time Temp Pulse Resp B/P (MAP) Pulse Ox O2 Delivery O2 Flow Rate FiO2 05/22/17 16:14 97 Room Air 05/22/17 15:54 59 16 140/82 97 Room Air 05/22/17 14:58 58 16 134/72 100 Room Air 05/22/17 13:30 57 16 134/72 100 Room Air 05/22/17 11:06 36.4 72 20 137/83 100 Room Air General Appearance: WD/WN, no apparent distress, + pertinent finding ( ambulatory on RA oriented x 3 nad) Eyes: EOMI ENT: hearing grossly normal Neck: supple Respiratory/Chest: normal breath sounds, no respiratory distress Cardiovascular: regular rate, rhythm, no edema Abdomen: normal bowel sounds, non tender, soft, + pertinent finding (no mancilla) Extremities: + pertinent finding (L toenail bases w/ purplish discoloration/ no tenderness or swelling; no R findings) Neurologic/Psych: no motor/sensory deficits, alert, normal mood/affect, oriented x 3 Skin: warm/dry, no rash, + rash Diagnostics Last 24 Hours Test 05/22/17 12:40 05/22/17 12:51 05/22/17 15:41 05/22/17 16:55 White Blood Count 4.60 K/uL Red Blood Count 3.77 M/uL Hemoglobin 12.1 g/dL Hematocrit 33.0 % Mean Corpuscular Volume 87.5 fL Mean Corpuscular Hemoglobin 32.1 pg Mean Corpuscular Hemoglobin Concent 36.7 g/dl Platelet Count 133 K/uL Mean Platelet Volume 8.5 fL Neutrophils (%) (Auto) 69.3 % Lymphocytes (%) (Auto) 20.2 % Monocytes (%) (Auto) 7.0 % Eosinophils (%) (Auto) 0.7 % Basophils (%) (Auto) 0.2 % Neutrophils # (Auto) 3.19 K/uL Lymphocytes # (Auto) 0.93 K/uL Monocytes # (Auto) 0.32 K/uL Eosinophils # (Auto) 0.03 K/uL Basophils # (Auto) 0.01 K/uL RDW Standard Deviation 39.3 fL RDW Coefficient of Variation 12.4 % Immature Granulocyte % (Auto) 2.6 % Immature Granulocyte # (Auto) 0.12 K/uL Prothrombin Time 11.8 SECONDS Prothromb Time International Ratio 1.1 Sodium Level 120 mmol/L Potassium Level 3.8 mmol/L Chloride Level 89 mmol/L Carbon Dioxide Level 25 mmol/L Anion Gap 6.0 mmol/L 17.0 mmol/L Blood Urea Nitrogen 10 mg/dl Creatinine 0.68 mg/dl Est Creatinine Clear Calc Drug Dose 103.5 ml/min Estimated GFR () 118.2 Estimated GFR (Non- 102.0 BUN/Creatinine Ratio 15.5 Random Glucose 85 mg/dl Calcium Level 8.2 mg/dl Bedside Hemoglobin 11.6 g/dl Bedside Hematocrit 34 % Bedside Sodium 122 mEq/L Bedside Potassium 3.9 mEq/L Bedside Chloride 88 mEq/L Bedside Total CO2 23 mEq/l Bedside Blood Urea Nitrogen 10 mg/dl Bedside Creatinine 0.7 mg/dl Bedside Glucose (other) 90 mg/dl Bedside Ionized Calcium (Ti) 1.08 mmol/l Osmolality 259 mOsm/kg Total Bilirubin 0.5 mg/dl Direct Bilirubin 0.1 mg/dl Aspartate Amino Transf (AST/SGOT) 63 U/L Alanine Aminotransferase (ALT/SGPT) 40 U/L Alkaline Phosphatase 99 U/L Total Protein 6.2 gm/dl Albumin 3.4 gm/dl Diagnostic Radiology: R shoulder XR (reviewed personally by me) > hilar enlargment, osteopenia Chest CT w/ con > 4.3 cm RUL mass; 2.5-6.3 cm R hilar/ mid mediastinal mass compromising R hilar arterial vasculature and RUL mainstem bronchus; probable liver mets; nodular R lung base density as well Assessment & Plan active 51 y/o F w/ few chronic health issues and recent tx for PNA after 3 wks severe exertional dyspneaadmitted 05/22 w/ presumed R lung neoplasm after presenting for R arm pain and found to have presenting sNa 120. CT scan shows RUL and R hilar mass the latter w/ arterial compromise and possible liver mets. She did have IV contrast for CT scan. Baseline creatinine 0.8. 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 -cont to avoid/minimize nsaids -f/u pending urinary studies -continue 1.5L fluid limit -recheck bmp 1800 today; then again in am -goal sNa for AM is 126 -f/u pulmonary recs -- procedure to get tissue bx contemplated for am Appreciate consult; will follow with you. Care coordinated w/ FROY Szymanski and w/ Dr Agee.
[2017-05-22 18:51] LABS: CALCIUM 8.4 mg/dl (8.5-10.1); CREATININE 0.89 mg/dl (0.60-1.20); POTASSIUM 3.8 mmol/L (3.5-5.1)
[2017-05-22] MEDS: MoRPHine SULFATE 2 MG/ML CARP IV PRN ×2 (19:04→23:54)
[2017-05-22] MEDS: ONDANSETRON INJ 2 MG/ML 2 ML VIAL IV PRN (23:49)
[2017-05-23] VITALS: BP 117/79; PULSE 76; TEMP 36.5; O2SAT 100
[2017-05-23] MEDS: MoRPHine SULFATE 2 MG/ML CARP IV PRN ×3 (05:13→13:43)
[2017-05-23 07:07] LABS: HEMOGLOBIN 11.1 g/dL (12.0-16.0); MEAN CELL VOLUME 87.8 fL (80-100); MEAN CORPUSCULAR HEMOGLOBIN 31.4 pg (25-34); MEAN CORPUSCULAR HGB CONC 35.8 g/dl (32-36); MEAN PLATELET VOLUME 8.4 fL (7.4-10.4); NUCLEATED RED BLOOD CELL ABS 0.03 K/uL (0-0); PLATELET COUNT 118 K/uL (130-400); RED CELL DISTRIBUTION WIDTH CV 12.5 % (11.5-14.5); RED CELL DISTRIBUTION WIDTH SD 39.8 fL (36.4-46.3); WHITE BLOOD COUNT 3.62 K/uL (4.8-10.8)
[2017-05-23 07:39] LABS: CALCIUM 8.2 mg/dl (8.5-10.1); CREATININE 0.89 mg/dl (0.60-1.20); POTASSIUM 4.6 mmol/L (3.5-5.1)
[2017-05-23 07:50] VITALS: BP 125/78; PULSE 65; TEMP 36.6; O2SAT 98
[2017-05-23] MEDS ORDERED: ASPIRIN 81 MG ECTAB PO SCH (08:00)
[2017-05-23] MEDS ORDERED: FUROSEMIDE INJ 10 MG in SYRINGE 0 ML IV STA (09:33)
--- NOTE | 2017-05-23 09:35 | Nephrology Progress Note ---
Nephrology Progress Note Date of Service: May 23, 2017. Subjective no interval events. arm pain persists. no n/v, no confusion, no balance concerns. she is waiting for OR time, remains NPO, + thirst. Objective Date Time Temp Pulse Resp B/P (MAP) Pulse Ox O2 Delivery O2 Flow Rate FiO2 05/23/17 07:50 36.6 65 16 125/78 (94) 98 05/23/17 00:00 Room Air 05/23/17 00:00 36.5 76 20 117/79 (92) 100 Room Air 05/22/17 18:31 36.4 71 18 109/70 (83) 100 Room Air 05/22/17 16:14 97 Room Air 05/22/17 15:54 59 16 140/82 97 Room Air 05/22/17 14:58 58 16 134/72 100 Room Air 05/22/17 13:30 57 16 134/72 100 Room Air 05/22/17 11:06 36.4 72 20 137/83 100 Room Air Physical Exam: General-[] Eyes-[] ENT-[] Neck-[] Lungs-[] Heart-[] Abdomen-[] Extremities-[] Neuro-[] Current Inpatient Medications Medications (Trade) Dose Ordered Sig/Ayanna Route Start Time Stop Time Status Last Admin Dose Admin Ioversol (Optiray 320) 111 ml UD PRN IV 05/22/17 12:45 05/26/17 12:44 Acetaminophen (Tylenol Tab) 650 mg Q4H PRN PO 05/22/17 15:00 06/21/17 14:59 Ondansetron HCl (Zofran Inj) 4 mg Q6H PRN IV 05/22/17 15:00 06/21/17 14:59 05/22/17 23:49 4 MG Enoxaparin Sodium (Lovenox Inj) 40 mg Q24H SQ 05/22/17 18:00 06/21/17 17:59 Future hold Pravastatin Sodium (Pravachol Tab) 20 mg DAILY PO 05/23/17 08:00 06/22/17 08:59 Ketorolac Tromethamine (Toradol Inj) 15 mg Q6H PRN IV. 05/22/17 18:30 05/27/17 18:29 05/23/17 01:37 15 MG Tramadol HCl (Ultram Tab) 50 mg Q4H PRN PO 05/22/17 18:45 06/21/17 18:44 Morphine Sulfate (MoRPHine SULFATE INJ) 2 mg Q4H PRN IV 05/22/17 19:00 06/05/17 18:59 05/23/17 09:15 2 MG Last 24 Hours Test 05/22/17 12:40 05/22/17 12:51 05/22/17 15:41 05/22/17 16:55 White Blood Count 4.60 K/uL Red Blood Count 3.77 M/uL Hemoglobin 12.1 g/dL Hematocrit 33.0 % Mean Corpuscular Volume 87.5 fL Mean Corpuscular Hemoglobin 32.1 pg Mean Corpuscular Hemoglobin Concent 36.7 g/dl Platelet Count 133 K/uL Mean Platelet Volume 8.5 fL Neutrophils (%) (Auto) 69.3 % Lymphocytes (%) (Auto) 20.2 % Monocytes (%) (Auto) 7.0 % Eosinophils (%) (Auto) 0.7 % Basophils (%) (Auto) 0.2 % Neutrophils # (Auto) 3.19 K/uL Lymphocytes # (Auto) 0.93 K/uL Monocytes # (Auto) 0.32 K/uL Eosinophils # (Auto) 0.03 K/uL Basophils # (Auto) 0.01 K/uL RDW Standard Deviation 39.3 fL RDW Coefficient of Variation 12.4 % Immature Granulocyte % (Auto) 2.6 % Immature Granulocyte # (Auto) 0.12 K/uL Prothrombin Time 11.8 SECONDS Prothromb Time International Ratio 1.1 Sodium Level 120 mmol/L Potassium Level 3.8 mmol/L Chloride Level 89 mmol/L Carbon Dioxide Level 25 mmol/L Anion Gap 6.0 mmol/L 17.0 mmol/L Blood Urea Nitrogen 10 mg/dl Creatinine 0.68 mg/dl Est Creatinine Clear Calc Drug Dose 103.5 ml/min Estimated GFR () 118.2 Estimated GFR (Non- 102.0 BUN/Creatinine Ratio 15.5 Random Glucose 85 mg/dl Calcium Level 8.2 mg/dl Bedside Hemoglobin 11.6 g/dl Bedside Hematocrit 34 % Bedside Sodium 122 mEq/L Bedside Potassium 3.9 mEq/L Bedside Chloride 88 mEq/L Bedside Total CO2 23 mEq/l Bedside Blood Urea Nitrogen 10 mg/dl Bedside Creatinine 0.7 mg/dl Bedside Glucose (other) 90 mg/dl Bedside Ionized Calcium (Ti) 1.08 mmol/l Osmolality 259 mOsm/kg Total Bilirubin 0.5 mg/dl Direct Bilirubin 0.1 mg/dl Aspartate Amino Transf (AST/SGOT) 63 U/L Alanine Aminotransferase (ALT/SGPT) 40 U/L Alkaline Phosphatase 99 U/L Total Protein 6.2 gm/dl Albumin 3.4 gm/dl Urine Color YELLOW Urine Appearance CLEAR Urine pH 7.5 Urine Specific [place] 1.031 Urine Protein NEG Urine Glucose (UA) NEG Urine Ketones NEG Urine Occult Blood NEG Urine Nitrite NEG Urine Bilirubin NEG Urine Urobilinogen NEG Urine Leukocyte Esterase NEG Urine WBC (Auto) 0 /hpf Urine RBC (Auto) 0-4 /hpf Urine Hyaline Casts (Auto) 0 /lpf Urine Epithelial Cells (Auto) 0-5 /lpf Urine Bacteria (Auto) NEG Urine Osmolality 317 mOms/kg Urine Random Sodium 58 mEq/L Test 05/22/17 18:18 05/23/17 06:15 Sodium Level 120 mmol/L 121 mmol/L Potassium Level 3.8 mmol/L 4.6 mmol/L Chloride Level 87 mmol/L 88 mmol/L Carbon Dioxide Level 28 mmol/L 27 mmol/L Anion Gap 5.0 mmol/L 6.0 mmol/L Blood Urea Nitrogen 9 mg/dl 11 mg/dl Creatinine 0.89 mg/dl 0.89 mg/dl Est Creatinine Clear Calc Drug Dose 79.1 ml/min 79.1 ml/min Estimated GFR () 87.6 87.6 Estimated GFR (Non- 75.6 75.6 BUN/Creatinine Ratio 10.5 12.5 Random Glucose 107 mg/dl 73 mg/dl Calcium Level 8.4 mg/dl 8.2 mg/dl White Blood Count 3.62 K/uL Red Blood Count 3.53 M/uL Hemoglobin 11.1 g/dL Hematocrit 31.0 % Mean Corpuscular Volume 87.8 fL Mean Corpuscular Hemoglobin 31.4 pg Mean Corpuscular Hemoglobin Concent 35.8 g/dl RDW Standard Deviation 39.8 fL RDW Coefficient of Variation 12.5 % Platelet Count 118 K/uL Mean Platelet Volume 8.4 fL Nucleated RBC Absolute Count (auto) 0.03 K/uL Nucleated Red Blood Cells % 0.9 % Assessment & Plan active 51 y/o F w/ few chronic health issues and recent tx for PNA after 3 wks severe exertional dyspneaadmitted 05/22 w/ presumed R lung neoplasm after presenting for R arm pain and found to have presenting sNa 120. CT scan shows RUL and R hilar mass the latter w/ arterial compromise and possible liver mets. She did have IV contrast for CT scan. Baseline creatinine 0.8. Calcium levels low/normal. 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 Small cell famous for SIADH. Do note that her admission urine was quite concentrated; IV contrast will also promote dehydration. Urine studies from admission minimally revealing but could be c/w SIADH; certainly do not favor dehydration -cont to avoid/minimize nsaids >> will d/c ketorolac -continue 1.5L fluid limit -ordered strict I/O -will give lasix 10 mg IV x 1 now and another dose 1700, then bid starting in am -recheck bmp 1500 today; then again in am < order in -goal sNa for AM is 127 -f/u bx results and pulm recs Appreciate consult; will follow with you. Care coordinated w/ Pasquale Martinez.
[2017-05-23] MEDS: ACETAMINOPHEN IV 100 ML IV PRN (10:12)
--- NOTE | 2017-05-23 10:16 | Pulmonology Progress Note ---
Pulmonary Progress Note Date of Service May 23, 2017. Attending Dr. Giordano Subjective Patient with right shoulder pain at this time but no other acute changes Objective Patient with right shoulder pain but no signs fo respiratory inefficacy VS: Stable on RA RESP: CTA CARD: S1S2 RRR no M/R/G ABD: + Bs soft non-tender EXT: no C/C/E Assessment & Plan 51-year-old female admitted with hyponatremia and lung mass: 1. Lung Mass: Patient has agreed to move forward with EBUS evaluation at this time. We are awaiting an OR slot. 2. NPO: Will work with nephrology on fluid replacement as the patient will most likely need IF with glucose supplementation as she in NPO at this time. Data Medications: Current Inpatient Medications Medications (Trade) Dose Ordered Sig/Ayanna Route Start Time Stop Time Status Last Admin Dose Admin Ioversol (Optiray 320) 111 ml UD PRN IV 05/22/17 12:45 05/26/17 12:44 Acetaminophen (Tylenol Tab) 650 mg Q4H PRN PO 05/22/17 15:00 06/21/17 14:59 Ondansetron HCl (Zofran Inj) 4 mg Q6H PRN IV 05/22/17 15:00 06/21/17 14:59 05/22/17 23:49 4 MG Enoxaparin Sodium (Lovenox Inj) 40 mg Q24H SQ 05/22/17 18:00 06/21/17 17:59 Future hold Pravastatin Sodium (Pravachol Tab) 20 mg DAILY PO 05/23/17 08:00 06/22/17 08:59 Tramadol HCl (Ultram Tab) 50 mg Q4H PRN PO 05/22/17 18:45 06/21/17 18:44 Morphine Sulfate (MoRPHine SULFATE INJ) 2 mg Q4H PRN IV 05/22/17 19:00 06/05/17 18:59 05/23/17 09:15 2 MG Furosemide 10 mg/ Syringe 1 ml @ 4 mls/min ONE STAT IV 05/23/17 09:33 05/23/17 09:34 Furosemide 10 mg/ Syringe 1 ml @ 4 mls/min [id number] IV 05/24/17 07:00 06/23/17 06:59 Furosemide 10 mg/ Syringe 1 ml @ 4 mls/min ONE ONCE IV 05/23/17 17:00 05/23/17 17:01 Acetaminophen 100 ml @ 400 mls/hr Q8H PRN IV 05/23/17 10:00 06/22/17 09:59 Vital Signs: Date Time Temp Pulse Resp B/P (MAP) Pulse Ox O2 Delivery O2 Flow Rate FiO2 05/23/17 08:00 Room Air 05/23/17 07:50 36.6 65 16 125/78 (94) 98 05/23/17 00:00 Room Air 05/23/17 00:00 36.5 76 20 117/79 (92) 100 Room Air 05/22/17 18:31 36.4 71 18 109/70 (83) 100 Room Air 05/22/17 16:14 97 Room Air 05/22/17 15:54 59 16 140/82 97 Room Air 05/22/17 14:58 58 16 134/72 100 Room Air 05/22/17 13:30 57 16 134/72 100 Room Air 05/22/17 11:06 36.4 72 20 137/83 100 Room Air Laboratory Results: Last 24 Hours Test 05/22/17 12:40 05/22/17 12:51 05/22/17 15:41 05/22/17 16:55 White Blood Count 4.60 K/uL Red Blood Count 3.77 M/uL Hemoglobin 12.1 g/dL Hematocrit 33.0 % Mean Corpuscular Volume 87.5 fL Mean Corpuscular Hemoglobin 32.1 pg Mean Corpuscular Hemoglobin Concent 36.7 g/dl Platelet Count 133 K/uL Mean Platelet Volume 8.5 fL Neutrophils (%) (Auto) 69.3 % Lymphocytes (%) (Auto) 20.2 % Monocytes (%) (Auto) 7.0 % Eosinophils (%) (Auto) 0.7 % Basophils (%) (Auto) 0.2 % Neutrophils # (Auto) 3.19 K/uL Lymphocytes # (Auto) 0.93 K/uL Monocytes # (Auto) 0.32 K/uL Eosinophils # (Auto) 0.03 K/uL Basophils # (Auto) 0.01 K/uL RDW Standard Deviation 39.3 fL RDW Coefficient of Variation 12.4 % Immature Granulocyte % (Auto) 2.6 % Immature Granulocyte # (Auto) 0.12 K/uL Prothrombin Time 11.8 SECONDS Prothromb Time International Ratio 1.1 Sodium Level 120 mmol/L Potassium Level 3.8 mmol/L Chloride Level 89 mmol/L Carbon Dioxide Level 25 mmol/L Anion Gap 6.0 mmol/L 17.0 mmol/L Blood Urea Nitrogen 10 mg/dl Creatinine 0.68 mg/dl Est Creatinine Clear Calc Drug Dose 103.5 ml/min Estimated GFR () 118.2 Estimated GFR (Non- 102.0 BUN/Creatinine Ratio 15.5 Random Glucose 85 mg/dl Calcium Level 8.2 mg/dl Bedside Hemoglobin 11.6 g/dl Bedside Hematocrit 34 % Bedside Sodium 122 mEq/L Bedside Potassium 3.9 mEq/L Bedside Chloride 88 mEq/L Bedside Total CO2 23 mEq/l Bedside Blood Urea Nitrogen 10 mg/dl Bedside Creatinine 0.7 mg/dl Bedside Glucose (other) 90 mg/dl Bedside Ionized Calcium (Ti) 1.08 mmol/l Osmolality 259 mOsm/kg Total Bilirubin 0.5 mg/dl Direct Bilirubin 0.1 mg/dl Aspartate Amino Transf (AST/SGOT) 63 U/L Alanine Aminotransferase (ALT/SGPT) 40 U/L Alkaline Phosphatase 99 U/L Total Protein 6.2 gm/dl Albumin 3.4 gm/dl Urine Color YELLOW Urine Appearance CLEAR Urine pH 7.5 Urine Specific [place] 1.031 Urine Protein NEG Urine Glucose (UA) NEG Urine Ketones NEG Urine Occult Blood NEG Urine Nitrite NEG Urine Bilirubin NEG Urine Urobilinogen NEG Urine Leukocyte Esterase NEG Urine WBC (Auto) 0 /hpf Urine RBC (Auto) 0-4 /hpf Urine Hyaline Casts (Auto) 0 /lpf Urine Epithelial Cells (Auto) 0-5 /lpf Urine Bacteria (Auto) NEG Urine Osmolality 317 mOms/kg Urine Random Sodium 58 mEq/L Test 05/22/17 18:18 05/23/17 06:15 Sodium Level 120 mmol/L 121 mmol/L Potassium Level 3.8 mmol/L 4.6 mmol/L Chloride Level 87 mmol/L 88 mmol/L Carbon Dioxide Level 28 mmol/L 27 mmol/L Anion Gap 5.0 mmol/L 6.0 mmol/L Blood Urea Nitrogen 9 mg/dl 11 mg/dl Creatinine 0.89 mg/dl 0.89 mg/dl Est Creatinine Clear Calc Drug Dose 79.1 ml/min 79.1 ml/min Estimated GFR () 87.6 87.6 Estimated GFR (Non- 75.6 75.6 BUN/Creatinine Ratio 10.5 12.5 Random Glucose 107 mg/dl 73 mg/dl Calcium Level 8.4 mg/dl 8.2 mg/dl White Blood Count 3.62 K/uL Red Blood Count 3.53 M/uL Hemoglobin 11.1 g/dL Hematocrit 31.0 % Mean Corpuscular Volume 87.8 fL Mean Corpuscular Hemoglobin 31.4 pg Mean Corpuscular Hemoglobin Concent 35.8 g/dl RDW Standard Deviation 39.8 fL RDW Coefficient of Variation 12.5 % Platelet Count 118 K/uL Mean Platelet Volume 8.4 fL Nucleated RBC Absolute Count (auto) 0.03 K/uL Nucleated Red Blood Cells % 0.9 %
[2017-05-23] MEDS: D5W AND NSS 1,000 ML IV SCH (10:32)
[2017-05-23 11:15] VITALS: BP 116/79; PULSE 63; TEMP 36.7; O2SAT 96
--- NOTE | 2017-05-23 11:38 | Progress Note ---
Internal Med Progress Note Date of Service: May 23, 2017. Provider Documentation: SUBJECTIVE: The patient was seen and examined Admitted with right arm pain and right lung Mass and Hyponatremia Still complains of pain in right Arm Denies any other symptoms OBJECTIVE: Vital Signs-as noted below Exam: General-NO distress at rest Anxious Eyes-normal ENT-normal Neck-supple Lungs-occasional wheezing right upper lung Otherwise clear Heart-Regular,no murmur Abdomen-Benign,no masses,bowel sound present Extremities-NO edema Greenish color of the left base of toe nails Neuro-AAOX3 Lab data as noted below. 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 Ashanti Sethi-appreciate input -No improvement RUL LUNG MASS::: CT of the Chest::1. Right upper lobe mass measuring 4.3 cm. 2. Mass continues to involve the right hilum as well as mid mediastinum with dimensions of keisha and hilar/mediastinal pathology measuring from 2.5 to 6.3 cm. 3. Mass compromises the right hilar arterial vasculature as well as upper lobe right mainstem bronchus. 4. Additional nodular density right lung base as well as right paravertebral region at T4-T5. 6. Hepatic metastatic disease. 7. Neoplastic process is the diagnosis of exclusion. 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 -Pain medication as needed HLD - continue statin pending LFTs DVT PROPHYLAXIS - SQ Lovenox DISPO Awaited Discussed with the and the Son Vital Signs: Date Time Temp Pulse Resp B/P (MAP) Pulse Ox O2 Delivery O2 Flow Rate FiO2 05/23/17 11:15 36.7 63 18 116/79 (91) 96 05/23/17 08:00 Room Air 05/23/17 07:50 36.6 65 16 125/78 (94) 98 05/23/17 00:00 Room Air 05/23/17 00:00 36.5 76 20 117/79 (92) 100 Room Air 05/22/17 18:31 36.4 71 18 109/70 (83) 100 Room Air 05/22/17 16:14 97 Room Air 05/22/17 15:54 59 16 140/82 97 Room Air 05/22/17 14:58 58 16 134/72 100 Room Air 05/22/17 13:30 57 16 134/72 100 Room Air Lab Results: Results Past 24 Hours Test 05/22/17 12:40 05/22/17 12:48 05/22/17 12:51 05/22/17 15:41 Range/Units White Blood Count 4.60 4.8-10.8 K/uL Red Blood Count 3.77 4.2-5.4 M/uL Hemoglobin 12.1 12.0-16.0 g/dL Hematocrit 33.0 37-47 % Mean Corpuscular Volume 87.5 80-100 fL Mean Corpuscular Hemoglobin 32.1 25-34 pg Mean Corpuscular Hemoglobin Concent 36.7 32-36 g/dl Platelet Count 133 130-400 K/uL Mean Platelet Volume 8.5 7.4-10.4 fL Neutrophils (%) (Auto) 69.3 % Lymphocytes (%) (Auto) 20.2 % Monocytes (%) (Auto) 7.0 % Eosinophils (%) (Auto) 0.7 % Basophils (%) (Auto) 0.2 % Neutrophils # (Auto) 3.19 1.4-6.5 K/uL Lymphocytes # (Auto) 0.93 1.2-3.4 K/uL Monocytes # (Auto) 0.32 0.11-0.59 K/uL Eosinophils # (Auto) 0.03 0-0.5 K/uL Basophils # (Auto) 0.01 0-0.2 K/uL RDW Standard Deviation 39.3 36.4-46.3 fL RDW Coefficient of Variation 12.4 11.5-14.5 % Immature Granulocyte % (Auto) 2.6 % Immature Granulocyte # (Auto) 0.12 0.00-0.02 K/uL Prothrombin Time 11.8 9.0-12.0 SECONDS Prothromb Time International Ratio 1.1 0.9-1.1 Sodium Level 120 136-145 mmol/L Potassium Level 3.8 3.5-5.1 mmol/L Chloride Level 89 98-107 mmol/L Carbon Dioxide Level 25 21-32 mmol/L Anion Gap 6.0 17.0 16-25 mmol/L Blood Urea Nitrogen 10 7-18 mg/dl Creatinine 0.68 0.60-1.20 mg/dl Est Creatinine Clear Calc Drug Dose 103.5 ml/min Estimated GFR () 118.2 Estimated GFR (Non- 102.0 BUN/Creatinine Ratio 15.5 10-20 Random Glucose 85 70-99 mg/dl Calcium Level 8.2 8.5-10.1 mg/dl Bedside D-Dimer > 450 0-450 ng/mlFEU Bedside Hemoglobin 11.6 12.0-16.0 g/dl Bedside Hematocrit 34 37-47 % Bedside Sodium 122 135-144 mEq/L Bedside Potassium 3.9 3.3-5.0 mEq/L Bedside Chloride 88 101-112 mEq/L Bedside Total CO2 23 24-31 mEq/l Bedside Blood Urea Nitrogen 10 7-18 mg/dl Bedside Creatinine 0.7 0.6-1.3 mg/dl Bedside Glucose (other) 90 70-99 mg/dl Bedside Ionized Calcium (Ti) 1.08 1.12-1.32 mmol/l Osmolality 259 280-300 mOsm/kg Total Bilirubin 0.5 0.2-1 mg/dl Direct Bilirubin 0.1 0-0.2 mg/dl Aspartate Amino Transf (AST/SGOT) 63 15-37 U/L Alanine Aminotransferase (ALT/SGPT) 40 12-78 U/L Alkaline Phosphatase 99 45-117 U/L Total Protein 6.2 6.4-8.2 gm/dl Albumin 3.4 3.4-5.0 gm/dl Test 05/22/17 16:55 05/22/17 18:18 05/23/17 06:15 Range/Units Urine Color YELLOW Urine Appearance CLEAR CLEAR Urine pH 7.5 4.5-7.5 Urine Specific [place] 1.031 1.000-1.030 Urine Protein NEG NEG Urine Glucose (UA) NEG NEG Urine Ketones NEG NEG Urine Occult Blood NEG NEG Urine Nitrite NEG NEG Urine Bilirubin NEG NEG Urine Urobilinogen NEG NEG Urine Leukocyte Esterase NEG NEG Urine WBC (Auto) 0 0-5 /hpf Urine RBC (Auto) 0-4 0-4 /hpf Urine Hyaline Casts (Auto) 0 0-5 /lpf Urine Epithelial Cells (Auto) 0-5 0-5 /lpf Urine Bacteria (Auto) NEG NEG Urine Osmolality 317 500-800 mOms/kg Urine Random Sodium 58 mEq/L Sodium Level 120 121 136-145 mmol/L Potassium Level 3.8 4.6 3.5-5.1 mmol/L Chloride Level 87 88 98-107 mmol/L Carbon Dioxide Level 28 27 21-32 mmol/L Anion Gap 5.0 6.0 3-11 mmol/L Blood Urea Nitrogen 9 11 7-18 mg/dl Creatinine 0.89 0.89 0.60-1.20 mg/dl Est Creatinine Clear Calc Drug Dose 79.1 79.1 ml/min Estimated GFR () 87.6 87.6 Estimated GFR (Non- 75.6 75.6 BUN/Creatinine Ratio 10.5 12.5 10-20 Random Glucose 107 73 70-99 mg/dl Calcium Level 8.4 8.2 8.5-10.1 mg/dl White Blood Count 3.62 4.8-10.8 K/uL Red Blood Count 3.53 4.2-5.4 M/uL Hemoglobin 11.1 12.0-16.0 g/dL Hematocrit 31.0 37-47 % Mean Corpuscular Volume 87.8 80-100 fL Mean Corpuscular Hemoglobin 31.4 25-34 pg Mean Corpuscular Hemoglobin Concent 35.8 32-36 g/dl RDW Standard Deviation 39.8 36.4-46.3 fL RDW Coefficient of Variation 12.5 11.5-14.5 % Platelet Count 118 130-400 K/uL Mean Platelet Volume 8.4 7.4-10.4 fL Nucleated RBC Absolute Count (auto) 0.03 0-0 K/uL Nucleated Red Blood Cells % 0.9 %
[2017-05-23] MEDS: PRAVASTATIN SOD 20 MG TAB PO SCH (14:44)
[2017-05-23] MEDS ORDERED: SUMATRIPTAN SUCCINATE 6 MG/0.5 ML VIAL SQ ONE (14:45)
[2017-05-23] MEDS ORDERED: KETOROLAC TROMETHAMINE 15 MG/ML VIAL IV ONE (14:45)
[2017-05-23 14:49] VITALS: BP 124/80; PULSE 63; TEMP 37.2; O2SAT 99
[2017-05-23 15:49] LABS: CALCIUM 8.5 mg/dl (8.5-10.1); CREATININE 0.92 mg/dl (0.60-1.20); POTASSIUM 3.9 mmol/L (3.5-5.1)
[2017-05-23] MEDS ORDERED: FUROSEMIDE INJ 10 MG in SYRINGE 0 ML IV ONE (17:00)
[2017-05-23] MEDS ORDERED: HYDROmorphone INJ 0.5 MG/0.5 ML SYR IV PRN (18:15)
[2017-05-23] MEDS: SUMATRIPTAN SUCCINATE 50 MG TAB PO PRN (18:55)
[2017-05-23 19:09] VITALS: BP 110/70; PULSE 63; TEMP 36.9; O2SAT 98
[2017-05-23] MEDS: HYDROmorphone INJ 0.5 MG/0.5 ML SYR IV PRN ×2 (20:02→23:52)
[2017-05-23 23:05] VITALS: BP 124/76; PULSE 69; TEMP 36.8; O2SAT 97
[2017-05-24] VITALS (7 sets, daily range): BP systolic 96–121; BP diastolic 62–76; PULSE 58–70; TEMP 36–37.1; O2SAT 91–100
[2017-05-24] MEDS: ONDANSETRON INJ 2 MG/ML 2 ML VIAL IV PRN ×2 (00:36→13:11)
[2017-05-24] MEDS: SUMATRIPTAN SUCCINATE 50 MG TAB PO PRN (04:52)
[2017-05-24] MEDS: PRAVASTATIN SOD 20 MG TAB PO SCH (08:33)
[2017-05-24] MEDS: TRAMADOL HCL 50 MG TAB PO PRN (08:33)
[2017-05-24] MEDS: FUROSEMIDE INJ 10 MG in SYRINGE 0 ML IV SCH ×3 (08:33→17:26)
[2017-05-24] MEDS: D5W AND NSS 1,000 ML IV SCH (09:23)
[2017-05-24] MEDS ORDERED: NURSING VERBAL MED ORDER ONE (09:30)
[2017-05-24 11:03] LABS: CALCIUM 8.2 mg/dl (8.5-10.1); CREATININE 0.91 mg/dl (0.60-1.20); POTASSIUM 3.6 mmol/L (3.5-5.1)
--- NOTE | 2017-05-24 12:14 | Pulmonology Progress Note ---
Pulmonary Progress Note Date of Service May 24, 2017. Attending Dr. Giordano Subjective Today the patient is noting continued migraine-type symptoms, right shoulder pain as well as now lower thoracic/sacral spinal pain. She also noted some change in her left eye vision. Objective Patient with right shoulder pain but no signs fo respiratory inefficacy VS: Stable on RA RESP: CTA CARD: S1S2 RRR no M/R/G ABD: + Bs soft non-tender EXT: no C/C/E HEENT: Within normal limits all 12 cranial nerves within normal limits [employer]: Strength 5/5 bilaterally, Reflexes 2+ bilaterally upper and lower extremities, finger-nose within normal limits Assessment & Plan 51-year-old female admitted with hyponatremia and lung mass: 1. Lung Mass: The patient is to move forward with her EBUS bronchoscopy on at 1200 hours. 2. Workup: As the patient is now having headache, consistent with previous history of migraines, continue shoulder pain as well as now cysts new sacral iliac discomfort I have spoken our radiologists we have decided to move forward with MRI of the head/neck with and without contrast as well as the lower thoracic sacral region. Also perform CT noncontrast of the shoulder for further evaluation of possible bony Mets. 2. Back Pain: Will give patient muscle relaxant for further evaluation of possible back spasm. Data Medications: Current Inpatient Medications Medications (Trade) Dose Ordered Sig/Ayanna Route Start Time Stop Time Status Last Admin Dose Admin Ioversol (Optiray 320) 111 ml UD PRN IV 05/22/17 12:45 05/26/17 12:44 Acetaminophen (Tylenol Tab) 650 mg Q4H PRN PO 05/22/17 15:00 06/21/17 14:59 Ondansetron HCl (Zofran Inj) 4 mg Q6H PRN IV 05/22/17 15:00 06/21/17 14:59 05/24/17 00:36 4 MG Enoxaparin Sodium (Lovenox Inj) 40 mg Q24H SQ 05/22/17 18:00 06/21/17 17:59 Future hold Pravastatin Sodium (Pravachol Tab) 20 mg DAILY PO 05/23/17 08:00 06/22/17 08:59 05/24/17 08:33 20 MG Tramadol HCl (Ultram Tab) 50 mg Q4H PRN PO 05/22/17 18:45 06/21/17 18:44 05/24/17 08:33 50 MG Furosemide 10 mg/ Syringe 1 ml @ 4 mls/min [id number] IV 05/24/17 07:00 06/23/17 06:59 05/24/17 08:33 4 MLS/MIN Acetaminophen 100 ml @ 400 mls/hr Q8H PRN IV 05/23/17 10:00 06/22/17 09:59 05/23/17 10:12 400 MLS/HR Sumatriptan Succinate (Imitrex Tab) 50 mg Q8H PRN PO 05/23/17 19:00 06/22/17 18:59 05/24/17 04:52 50 MG Hydromorphone HCl (Dilaudid Inj) 0.5 mg Q4H PRN IV 05/23/17 19:00 06/06/17 18:59 05/23/17 23:52 0.5 MG Vital Signs: Date Time Temp Pulse Resp B/P (MAP) Pulse Ox O2 Delivery O2 Flow Rate FiO2 05/24/17 11:21 37.0 70 18 96/62 (73) 91 05/24/17 08:00 Room Air 05/24/17 07:32 37.1 66 17 121/73 (89) 94 Room Air 05/24/17 03:20 37.1 65 16 118/76 (90) 94 Room Air 05/24/17 00:00 Room Air 05/23/17 23:05 36.8 69 16 124/76 (92) 97 Room Air 05/23/17 19:09 36.9 63 19 110/70 (83) 98 Room Air 05/23/17 16:00 Room Air 05/23/17 14:49 37.2 63 18 124/80 (95) 99 Laboratory Results: Last 24 Hours Test 05/23/17 15:05 05/24/17 10:23 Sodium Level 120 mmol/L 124 mmol/L Potassium Level 3.9 mmol/L 3.6 mmol/L Chloride Level 89 mmol/L 91 mmol/L Carbon Dioxide Level 24 mmol/L 25 mmol/L Anion Gap 7.0 mmol/L 8.0 mmol/L Blood Urea Nitrogen 12 mg/dl 11 mg/dl Creatinine 0.92 mg/dl 0.91 mg/dl Est Creatinine Clear Calc Drug Dose 76.5 ml/min 77.3 ml/min Estimated GFR () 84.1 85.3 Estimated GFR (Non- 72.6 73.6 BUN/Creatinine Ratio 12.5 12.0 Random Glucose 79 mg/dl 85 mg/dl Calcium Level 8.5 mg/dl 8.2 mg/dl Magnesium Level 1.9 mg/dl
[2017-05-24] MEDS ORDERED: CYCLOBENZAPRINE HCL 5 MG TAB PO PRN (12:45)
[2017-05-24] MEDS: HYDROmorphone INJ 0.5 MG/0.5 ML SYR IV PRN (12:55)
--- NOTE | 2017-05-24 14:53 | Progress Note ---
Internal Med Progress Note Date of Service: May 24, 2017. Provider Documentation: SUBJECTIVE: The patient was seen and examined Admitted with right arm pain and right lung Mass and Hyponatremia Still complains of pain in right Arm Has occasional attacks of migrain Very anxious about the disease OBJECTIVE: Vital Signs-as noted below Exam: General-NO distress at rest Anxious Eyes-normal ENT-normal Neck-supple Lungs-occasional wheezing right upper lung Otherwise clear Heart-Regular,no murmur Abdomen-Benign,no masses,bowel sound present Extremities-NO edema Greenish color of the left base of toe nails Neuro-AAOX3 Lab data as noted below. 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 Ashanti Sethi-appreciate input -slightly better at 124 -further recommendation as per nephrology RUL LUNG MASS::: CT of the Chest::1. Right upper lobe mass measuring 4.3 cm. 2. Mass continues to involve the right hilum as well as mid mediastinum with dimensions of keisha and hilar/mediastinal pathology measuring from 2.5 to 6.3 cm. 3. Mass compromises the right hilar arterial vasculature as well as upper lobe right mainstem bronchus. 4. Additional nodular density right lung base as well as right paravertebral region at T4-T5. 6. Hepatic metastatic disease. 7. Neoplastic process is the diagnosis of exclusion. 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 -Pain medication as needed -Cervical spine MRI -requested HLD - continue statin pending LFTs DVT PROPHYLAXIS - SQ Lovenox DISPO Awaited Discussed with the and the Son Vital Signs: Date Time Temp Pulse Resp B/P (MAP) Pulse Ox O2 Delivery O2 Flow Rate FiO2 05/24/17 11:21 37.0 70 18 96/62 (73) 91 05/24/17 08:00 Room Air 05/24/17 07:32 37.1 66 17 121/73 (89) 94 Room Air 05/24/17 03:20 37.1 65 16 118/76 (90) 94 Room Air 05/24/17 00:00 Room Air 05/23/17 23:05 36.8 69 16 124/76 (92) 97 Room Air 05/23/17 19:09 36.9 63 19 110/70 (83) 98 Room Air 05/23/17 16:00 Room Air Lab Results: Results Past 24 Hours Test 05/23/17 15:05 05/24/17 10:23 Range/Units Sodium Level 120 124 136-145 mmol/L Potassium Level 3.9 3.6 3.5-5.1 mmol/L Chloride Level 89 91 98-107 mmol/L Carbon Dioxide Level 24 25 21-32 mmol/L Anion Gap 7.0 8.0 3-11 mmol/L Blood Urea Nitrogen 12 11 7-18 mg/dl Creatinine 0.92 0.91 0.60-1.20 mg/dl Est Creatinine Clear Calc Drug Dose 76.5 77.3 ml/min Estimated GFR () 84.1 85.3 Estimated GFR (Non- 72.6 73.6 BUN/Creatinine Ratio 12.5 12.0 10-20 Random Glucose 79 85 70-99 mg/dl Calcium Level 8.5 8.2 8.5-10.1 mg/dl Magnesium Level 1.9 1.8-2.4 mg/dl
[2017-05-24] MEDS ORDERED: GADAVIST IV PRN (15:40)
[2017-05-24] MEDS: ACETAMINOPHEN IV 100 ML IV PRN (17:00)
--- NOTE | 2017-05-24 17:03 | DIAGNOSTIC IMAGING REPORT ---
Brain MRI WITH AND WITHOUT CONTRAST HISTORY: Work-up for MTX lung ca, headache, vision changes TECHNIQUE: Multiplanar multisequence MRI of the brain was performed both before and after the intravenous administration of contrast. COMPARISON STUDY: None. FINDINGS: Mild mucosal thickening within the left maxillary sinus. The orbits are unremarkable. The mastoid air cells are clear. The major vascular flow-voids at the skull base are well-maintained. There is no hematoma, midline shift, acute infarct. There are greater than 10 enhancing T2 hyperintense lesions seen scattered throughout the supratentorial brain. Dominant mass within the right parietal lobe measures 11 mm. This demonstrates mild surrounding vasogenic edema. There is also a similar appearing sellar/suprasellar enhancing mass which measures 2.6 x 2.0 x 1.7 cm. This results in mass effect along the floor of the third ventricle and results in mild effacement of the third ventricle. This lesion also abuts and displaces the optic chiasm. These lesions are consistent with metastatic disease. There is a 5 mm T1 hypointense lesion within the clivus. This favors a small metastatic focus. IMPRESSION: 1. Multiple enhancing lesions within the brain consistent with metastatic disease. 2. The dominant 2.8 x 2.0 x 1.7 cm lesion is located at the sellar/suprasellar location. This results in mild mass effect along the third ventricle and optic chiasm. The ventricles are normal in size at this time without evidence for hydrocephalus. 3. Subcentimeter clival lesion likely represents metastatic disease. Electronically signed by: Ryan Guzman M.D. 05/24/2017 5:02 PM Dictated Date/Time: 05/24/2017 4:56 PM
--- NOTE | 2017-05-24 17:13 | DIAGNOSTIC IMAGING REPORT ---
CERVICAL SPINE MRI WITH AND WITHOUT CONTRAST HISTORY: Lung mass with right shoulder pain possible metastatic disease TECHNIQUE: Multiplanar multisequence MRI of the cervical spine was performed both before and after the use of intravenous contrast. COMPARISON STUDY: Chest CT 05/22/2017. FINDINGS: There are multiple T2 hyperintense, T1 hypointense enhancing lesion seen scattered throughout the visualized cervical and upper thoracic spine consistent with metastatic disease. There is complete replacement of the C6 and T3 vertebral bodies with the metastatic deposit. Prevertebral soft tissues and the C1-C2 interval are intact. No fracture or subluxation within the cervical spine. Disc spaces are preserved. Cervical spinal cord is normal in course, caliber, and signal intensity. There is no epidural or paraspinal tumor identified within the cervical spine. No significant central canal narrowing. Severe right-sided neural foraminal narrowing at C4-C5 and moderate right-sided neural foraminal narrowing at C5-C6 due to the uncovertebral and facet hypertrophy no significant left-sided neural foraminal narrowing within the cervical spine. There are few scattered lesions seen within the facets and spinous processes of the mid to lower cervical spine. Only seen on the sagittal views there is paraspinal extension of the right T3 soft tissue mass which measures 2.3 x 1.9 cm. This likely extend into the right epidural space and right T2-T3 and T3-T4 neural foramen resulting in neural foraminal narrowing. This is also identified on the recent chest CT. This does not appear to result in significant central canal narrowing. IMPRESSION: 1. Multiple metastatic lesions seen scattered throughout the cervical and thoracic spine. 2. No significant central canal narrowing within the cervical spine. No evidence for epidural involvement of metastatic disease at this time within the cervical spine. 3. However, there is right-sided paraspinal extension of the T3 lesion as described above. This extends into the right T2-T3 and T3-T4 neural foramen resulting in neural foraminal narrowing. This also extends into the right epidural space at T3. However, there is no significant neural foraminal narrowing at this time. 4. No fracture or subluxation within the cervical spine. Electronically signed by: Ryan Guzman M.D. 05/24/2017 5:11 PM Dictated Date/Time: 05/24/2017 5:02 PM
[2017-05-24] MEDS ORDERED: PROMETHAZINE HCL INJ 25 MG in SODIUM CHLORIDE 0.9% 50ML 50 ML IV PRN (17:30)
[2017-05-24] MEDS ORDERED: DEXAMETHASONE INJ 4 MG in SYRINGE 0 ML IV ONE (18:00)
--- NOTE | 2017-05-24 20:02 | DIAGNOSTIC IMAGING REPORT ---
LUMBAR SPINE MRI WITH AND WITHOUT CONTRAST HISTORY: lung mass, lower back pain, rule out mets TECHNIQUE: Multiplanar multisequence MRI of the lumbar spine was performed both before and after the intravenous administration of contrast. COMPARISON: None. FINDINGS: For the purpose of the report the L5-S1 disc space will be located on axial image 27 of 30. Multiple lesions seen throughout the visualized osseous structures of the lumbar spine and sacrum resulting in near complete marrow replacement. This is consistent with metastatic disease. No acute fractures identified. Mild disc space narrowing and mild anterolisthesis of L4 and L5. The conus terminates at the T12 level. Small amount of epidural involvement at the T1 level only. This measures 4 mm in thickness. No significant central canal or neural foraminal narrowing at this level. Small broad-based posterior disc bulges at L2-L3 and L3-L4. Mild central canal narrowing at L3-L4. Small focal central disc protrusion at L5-S1. Partially visualized 4.8 cm lesion within the right hepatic lobe. This is also consistent with a metastatic deposit. IMPRESSION: 1. Extensive osseous metastatic disease seen throughout the lumbar spine and sacrum. 2. There is 4 mm of epidural involvement at the L1 level. However, there is no significant central canal narrowing at this level. 3. No fractures within the lumbar spine. Electronically signed by: Ryan Guzman M.D. 05/24/2017 8:00 PM Dictated Date/Time: 05/24/2017 7:54 PM
[2017-05-24] MEDS: DEXAMETHASONE INJ 4 MG in SYRINGE 0 ML IV SCH (23:48)
[2017-05-25] VITALS (7 sets, daily range): BP systolic 97–143; BP diastolic 61–84; PULSE 63–86; TEMP 36.3–36.8; O2SAT 95–100
[2017-05-25 05:54] LABS: HEMATOCRIT 35.8 % (37-47); MEAN CELL VOLUME 87.7 fL (80-100); MEAN CORPUSCULAR HEMOGLOBIN 31.9 pg (25-34); MEAN CORPUSCULAR HGB CONC 36.3 g/dl (32-36); MEAN PLATELET VOLUME 8.5 fL (7.4-10.4); PLATELET COUNT 124 K/uL (130-400); RED CELL DISTRIBUTION WIDTH CV 12.4 % (11.5-14.5); RED CELL DISTRIBUTION WIDTH SD 39.8 fL (36.4-46.3); WHITE BLOOD COUNT 5.65 K/uL (4.8-10.8)
[2017-05-25] MEDS: FUROSEMIDE INJ 10 MG in SYRINGE 0 ML IV SCH ×3 (06:22→13:47)
[2017-05-25] MEDS: DEXAMETHASONE INJ 4 MG in SYRINGE 0 ML IV SCH ×4 (06:22→23:40)
[2017-05-25 06:40] LABS: CALCIUM 8.7 mg/dl (8.5-10.1); CREATININE 0.86 mg/dl (0.60-1.20); POTASSIUM 4.2 mmol/L (3.5-5.1)
[2017-05-25] MEDS: PRAVASTATIN SOD 20 MG TAB PO SCH (09:42)
[2017-05-25] MEDS: TRAMADOL HCL 50 MG TAB PO PRN ×2 (10:51→14:39)
--- NOTE | 2017-05-25 13:21 | Progress Note ---
Internal Med Progress Note Date of Service: May 25, 2017. Provider Documentation: SUBJECTIVE: The patient was seen and examined Admitted with right arm pain and right lung Mass and Hyponatremia MRI of the Head,Cervical and Lumbar Spines show Metastatic disease-Patient and the aware Headache and right arm pain better OBJECTIVE: Vital Signs-as noted below Exam: General-NO distress at rest Very Anxious Eyes-normal ENT-normal Neck-supple Lungs-occasional wheezing right upper lung Otherwise clear Heart-Regular,no murmur Abdomen-Benign,no masses,bowel sound present Extremities-NO edema Greenish color of the left base of toe nails Neuro-AAOX3 Lab data as noted below. ASSESSMENT & PLAN: Widespread Metastatic disease MRI of the Head::1. Multiple enhancing lesions within the brain consistent with metastatic disease. 2. The dominant 2.8 x 2.0 x 1.7 cm lesion is located at the sellar/suprasellar location. This results in mild mass effect along the third ventricle and optic chiasm. The ventricles are normal in size at this time without evidence for hydrocephalus. 3. Subcentimeter clival lesion likely represents metastatic disease. MRI of the Cervical Spine::1. Multiple metastatic lesions seen scattered throughout the cervical and thoracic spine. 2. No significant central canal narrowing within the cervical spine. No evidence for epidural involvement of metastatic disease at this time within the cervical spine. 3. However, there is right-sided paraspinal extension of the T3 lesion as described above. This extends into the right T2-T3 and T3-T4 neural foramen resulting in neural foraminal narrowing. This also extends into the right epidural space at T3. However, there is no significant neural foraminal narrowing at this time. 4. No fracture or subluxation within the cervical spine. MRI of the Lumbar Spine::1. Extensive osseous metastatic disease seen throughout the lumbar spine and sacrum. 2. There is 4 mm of epidural involvement at the L1 level. However, there is no significant central canal narrowing at this level. 3. No fractures within the lumbar spine. Started on IV Decadron Pain around the right eye and headache-better HYPONATREMIA - admit to med/surg - patient presenting to the ED with complaints of right arm pain; also was diagnosed with pneumonia earlier in the week by her PCP - chest CT in the ED showing a RUL lung mass - patient currently appears euvolemic on exam; Na+ 120 - suspect SIADH from underlying lung mass - urine Osmol-317,Serum Osmol-259 and Urine Sodium-58 - start 1.5L fluid restriction; recheck Na+ at 1800 - case discussed with Dr. Ashanti Setih-appreciate input -slightly better at 124 -further recommendation as per nephrology -IVF and IV Lasix on hold -continue to restrict water intake -Sodium 122 on 05/25/17 Monitor RUL LUNG MASS::: CT of the Chest::1. Right upper lobe mass measuring 4.3 cm. 2. Mass continues to involve the right hilum as well as mid mediastinum with dimensions of keisha and hilar/mediastinal pathology measuring from 2.5 to 6.3 cm. 3. Mass compromises the right hilar arterial vasculature as well as upper lobe right mainstem bronchus. 4. Additional nodular density right lung base as well as right paravertebral region at T4-T5. 6. Hepatic metastatic disease. 7. Neoplastic process is the diagnosis of exclusion. 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 -Pain medication as needed -Cervical spine MRI -as above HLD - continue statin pending LFTs DVT PROPHYLAXIS - SQ Lovenox DISPO Awaited Discussed with the and the patient about the MRI findings Vital Signs: Date Time Temp Pulse Resp B/P (MAP) Pulse Ox O2 Delivery O2 Flow Rate FiO2 05/25/17 11:10 36.3 80 16 143/83 (103) 99 Room Air 05/25/17 08:00 Room Air 05/25/17 07:28 36.6 86 18 104/70 (81) 97 Room Air 05/25/17 04:25 36.8 71 18 101/65 (77) 95 Room Air 05/25/17 00:00 100 Room Air 05/24/17 23:34 36.3 61 18 102/66 (78) 95 Room Air 05/24/17 20:00 100 Room Air 05/24/17 19:43 36.0 58 18 105/71 (82) 100 Room Air 05/24/17 17:03 36.6 68 18 99/67 (78) 98 05/24/17 15:00 Room Air Lab Results: Results Past 24 Hours Test 05/25/17 05:32 Range/Units White Blood Count 5.65 4.8-10.8 K/uL Red Blood Count 4.08 4.2-5.4 M/uL Hemoglobin 13.0 12.0-16.0 g/dL Hematocrit 35.8 37-47 % Mean Corpuscular Volume 87.7 80-100 fL Mean Corpuscular Hemoglobin 31.9 25-34 pg Mean Corpuscular Hemoglobin Concent 36.3 32-36 g/dl RDW Standard Deviation 39.8 36.4-46.3 fL RDW Coefficient of Variation 12.4 11.5-14.5 % Platelet Count 124 130-400 K/uL Mean Platelet Volume 8.5 7.4-10.4 fL Sodium Level 122 136-145 mmol/L Potassium Level 4.2 3.5-5.1 mmol/L Chloride Level 90 98-107 mmol/L Carbon Dioxide Level 24 21-32 mmol/L Anion Gap 9.0 3-11 mmol/L Blood Urea Nitrogen 14 7-18 mg/dl Creatinine 0.86 0.60-1.20 mg/dl Est Creatinine Clear Calc Drug Dose 81.8 ml/min Estimated GFR () 91.3 Estimated GFR (Non- 78.8 BUN/Creatinine Ratio 16.4 10-20 Random Glucose 105 70-99 mg/dl Calcium Level 8.7 8.5-10.1 mg/dl Magnesium Level 2.0 1.8-2.4 mg/dl
--- NOTE | 2017-05-25 15:27 | Pulmonology Progress Note ---
Pulmonary Progress Note Date of Service May 25, 2017. Attending Dr. Giordano Subjective Patient doing well today notices the overall improvement. Objective No signs of respiratory insufficiency. Patient is able sit up ambulate and handle fine dextrose motions with no signs of difficulty. VS: Stable on RA RESP: CTA CARD: S1S2 RRR no M/R/G ABD: + Bs soft non-tender EXT: no C/C/E HEENT: Within normal limits all 12 cranial nerves within normal limits [employer]ER: Strength 5/5 bilaterally, Reflexes 2+ bilaterally upper and lower extremities, finger-nose within normal limits Studies WBC: 5K Na: 122 MRI lumbar spine: Extensive osseous metastatic disease through seen throughout the lumbar spine and sacrum MRI of the brain: Multiple enhancing lesions CT chest: Right upper lobe mass and diffuse mediastinal hilar adenopathy Active pulmonary Medications: 1. Dexamethasone 4 mg IV Q 6 Assessment & Plan 51-year-old female with lung mass, hyponatremia and via radiographic analysis multiple metastatic lesions to the head and throughout the spine 1. Lung Mass: This presentation is highly consistent with diffuse small cell lung carcinoma. The patient is scheduled to undergo bronchoscopic evaluation on 05/26/2017: 2. [employer] lesions: As the patient was having some mild visual changes over left eye there does appear to be associated lesion she was started on Decadron as noted some improvement at this time. 2. Back Pain: Better controlled at this time with Decadron, Dilaudid and cyclobenzaprine. Data Medications: Current Inpatient Medications Medications (Trade) Dose Ordered Sig/Ayanna Route Start Time Stop Time Status Last Admin Dose Admin Ioversol (Optiray 320) 111 ml UD PRN IV 05/22/17 12:45 05/26/17 12:44 Acetaminophen (Tylenol Tab) 650 mg Q4H PRN PO 05/22/17 15:00 06/21/17 14:59 Ondansetron HCl (Zofran Inj) 4 mg Q6H PRN IV 05/22/17 15:00 06/21/17 14:59 05/24/17 13:11 4 MG Enoxaparin Sodium (Lovenox Inj) 40 mg Q24H SQ 05/22/17 18:00 06/21/17 17:59 Future hold Pravastatin Sodium (Pravachol Tab) 20 mg DAILY PO 05/23/17 08:00 06/22/17 08:59 05/25/17 09:42 20 MG Tramadol HCl (Ultram Tab) 50 mg Q4H PRN PO 05/22/17 18:45 06/21/17 18:44 05/25/17 14:39 50 MG Furosemide 10 mg/ Syringe 1 ml @ 4 mls/min [id number] IV 05/24/17 07:00 06/23/17 06:59 05/24/17 08:33 4 MLS/MIN Acetaminophen 100 ml @ 400 mls/hr Q8H PRN IV 05/23/17 10:00 06/22/17 09:59 05/24/17 17:00 400 MLS/HR Sumatriptan Succinate (Imitrex Tab) 50 mg Q8H PRN PO 05/23/17 19:00 06/22/17 18:59 05/24/17 04:52 50 MG Hydromorphone HCl (Dilaudid Inj) 0.5 mg Q4H PRN IV 05/23/17 19:00 06/06/17 18:59 05/24/17 12:55 0.5 MG Cyclobenzaprine HCl (Flexeril Tab) 5 mg TID PRN PO 05/24/17 12:45 06/23/17 12:44 05/25/17 06:22 5 MG Gadobutrol (Gadavist) 7.2 mmol UD PRN IV 05/24/17 15:40 05/28/17 15:39 Promethazine HCl 25 mg/Sodium Chloride 51 ml @ 204 mls/hr Q6H PRN IV 05/24/17 17:30 06/23/17 17:29 05/24/17 18:27 204 MLS/HR Dexamethasone Sodium Phosphate 4 mg/Syringe 1 ml @ 1 mls/min Q6H IV 05/25/17 00:00 06/24/17 00:00 05/25/17 13:44 1 MLS/MIN I & O: 24-Hour Column 05/26/17 08:00 Intake Total 1150 ml Balance 1150 ml Vital Signs: Date Time Temp Pulse Resp B/P (MAP) Pulse Ox O2 Delivery O2 Flow Rate FiO2 05/25/17 14:59 36.4 72 18 127/84 (98) 99 05/25/17 11:10 36.3 80 16 143/83 (103) 99 Room Air 05/25/17 08:00 Room Air 05/25/17 07:28 36.6 86 18 104/70 (81) 97 Room Air 05/25/17 04:25 36.8 71 18 101/65 (77) 95 Room Air 05/25/17 00:00 100 Room Air 05/24/17 23:34 36.3 61 18 102/66 (78) 95 Room Air 05/24/17 20:00 100 Room Air 05/24/17 19:43 36.0 58 18 105/71 (82) 100 Room Air 05/24/17 17:03 36.6 68 18 99/67 (78) 98 Laboratory Results: Last 24 Hours Test 05/25/17 05:32 White Blood Count 5.65 K/uL Red Blood Count 4.08 M/uL Hemoglobin 13.0 g/dL Hematocrit 35.8 % Mean Corpuscular Volume 87.7 fL Mean Corpuscular Hemoglobin 31.9 pg Mean Corpuscular Hemoglobin Concent 36.3 g/dl RDW Standard Deviation 39.8 fL RDW Coefficient of Variation 12.4 % Platelet Count 124 K/uL Mean Platelet Volume 8.5 fL Sodium Level 122 mmol/L Potassium Level 4.2 mmol/L Chloride Level 90 mmol/L Carbon Dioxide Level 24 mmol/L Anion Gap 9.0 mmol/L Blood Urea Nitrogen 14 mg/dl Creatinine 0.86 mg/dl Est Creatinine Clear Calc Drug Dose 81.8 ml/min Estimated GFR () 91.3 Estimated GFR (Non- 78.8 BUN/Creatinine Ratio 16.4 Random Glucose 105 mg/dl Calcium Level 8.7 mg/dl Magnesium Level 2.0 mg/dl
--- NOTE | 2017-05-25 16:43 | NEPHROLOGY PROGRESS NOTE ---
DATE: 05/25/2017 SUBJECTIVE: Overnight, no new issues. She continues to have some arm pain, no nausea, vomiting, confusion. She got only 1 dose of Lasix yesterday, other dose of Lasix was held because of low blood pressure. The lowest blood pressure I see on the computer system is 96/62; most recent blood pressure now is 127/84. PHYSICAL EXAMINATION: GENERAL: She is awake, alert, oriented x3. HEENT: Mucous membranes moist. NECK: Supple. No jugular venous distention. VITAL SIGNS: Blood pressure 127/84, 99% on room air, pulse rate 72 per minute, temperature 36.4. NECK: Supple. No jugular venous distention. LUNGS: Bilateral clear to auscultation. CARDIOVASCULAR: S1, S2 regular. ABDOMEN: Soft, nontender. EXTREMITIES: Shows no edema. NEUROLOGIC: Awake, alert, oriented x3. Normal speech. I'S AND O'S: Urine output yesterday was 1400 mL. We do not have the exact urine output of her today. LABORATORY TESTS: Most recent blood work from this morning shows sodium of 122, potassium of 4.2, chloride 90, BUN 14, creatinine 0.86, calcium 8.7, magnesium 2.0. Urine osmolality was 317, 3 days ago. 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 RECOMMENDATIONS: 1. Continue 1.5 liter fluid restriction per day. 2. Increase Lasix to 20 mg IV twice daily. 3. Add salt tablet 1 gram twice daily today. 4. The sodium has not gone up as expected with IV Lasix because she really has not had enough Lasix. Multiple doses of Lasix have been held because of the slightly low blood pressure; however, unless she gets IV Lasix it is unlikely that her serum sodium is going to go up much higher. Continue to do BMP twice daily. MTDD
[2017-05-25] MEDS: SODIUM CHLORIDE 1 GM TAB PO SCH (17:42)
[2017-05-25] MEDS ORDERED: POLYETHYLENE (MIRALAX) 17 GM PACK PO ONE (17:57)
[2017-05-25] MEDS ORDERED: FUROSEMIDE INJ 20 MG in SYRINGE 0 ML IV ONE (19:45)
[2017-05-25] MEDS ORDERED: OXYCODONE/ACETAMINOPHEN 5-325 TAB PO PRN (20:00)
[2017-05-25] MEDS ORDERED: TRAMADOL HCL 50 MG TAB PO PRN (20:15)
[2017-05-25] MEDS: ONDANSETRON INJ 2 MG/ML 2 ML VIAL IV PRN (20:21)
--- NOTE | 2017-05-25 21:39 | DIAGNOSTIC IMAGING REPORT ---
VENOUS DOPPLER LWR EXT BILA CLINICAL HISTORY: 51 years-old Female presenting with LE pain. TECHNIQUE: Real-time grayscale and color and spectral Doppler ultrasound imaging of the veins of the bilateral lower extremities was performed. Compression and augmentation were also utilized. COMPARISON: None. FINDINGS: Right: Common femoral vein: Patent. Greater saphenous vein: Patent. Deep femoral vein: Patent. Femoral vein: Patent. Popliteal vein: Patent. Calf veins: Patent. Left: Common femoral vein: Patent. Greater saphenous vein: Patent. Deep femoral vein: Patent. Femoral vein: Patent. Popliteal vein: Patent. Calf veins: Patent. Other: 3.7 x 4.1 x 1.5 cm left popliteal cyst. IMPRESSION: No evidence of deep venous thrombosis. Electronically signed by: Kamran White M.D. 05/25/2017 9:37 PM Dictated Date/Time: 05/25/2017 9:37 PM
[2017-05-26] VITALS (12 sets, daily range): BP systolic 100–127; BP diastolic 65–82; PULSE 65–75; TEMP 36.2–36.9; O2SAT 94–100
[2017-05-26] MEDS: ONDANSETRON INJ 2 MG/ML 2 ML VIAL IV PRN ×2 (02:18→18:47)
[2017-05-26] MEDS: HYDROmorphone INJ 0.5 MG/0.5 ML SYR IV PRN ×3 (02:19→23:47)
[2017-05-26] MEDS: DEXAMETHASONE INJ 4 MG in SYRINGE 0 ML IV SCH ×4 (05:41→23:41)
[2017-05-26 06:47] LABS: CALCIUM 8.9 mg/dl (8.5-10.1); CREATININE 0.82 mg/dl (0.60-1.20); POTASSIUM 4.5 mmol/L (3.5-5.1)
[2017-05-26] MEDS: PRAVASTATIN SOD 20 MG TAB PO SCH (07:14)
[2017-05-26] MEDS: POLYETHYLENE (MIRALAX) 17 GM PACK PO SCH ×2 (07:14→18:14)
[2017-05-26] MEDS: SODIUM CHLORIDE 1 GM TAB PO SCH ×2 (07:15→16:36)
--- NOTE | 2017-05-26 10:07 | History & Physical Bridge Note ---
H&P Re-Evaluation Bridge Note: I have examined the patient, reviewed the History & Physical and in the interval since the performance of the History & Physical I have noted the following changes of clinical significance: No changes noted
--- NOTE | 2017-05-26 10:09 | Pulmonology Progress Note ---
Pulmonary Progress Note Date of Service May 26, 2017. Attending Dr. Giordano Subjective Patient doing well no respiratory difficulty at this time able to ambulate throughout the halls on room air. Objective No signs of respiratory insufficiency. Patient is able sit up ambulate and handle fine dextrose motions with no signs of difficulty. VS: Stable on RA RESP: CTA CARD: S1S2 RRR no M/R/G ABD: + Bs soft non-tender EXT: no C/C/E HEENT: Within normal limits all 12 cranial nerves within normal limits [employer]: Strength 5/5 bilaterally, Reflexes 2+ bilaterally upper and lower extremities, finger-nose within normal limits Studies WBC: 6K Na: 124 PLT: 124 MRI lumbar spine: Extensive osseous metastatic disease through seen throughout the lumbar spine and sacrum MRI of the brain: Multiple enhancing lesions CT chest: Right upper lobe mass and diffuse mediastinal hilar adenopathy Active pulmonary Medications: 1. Dexamethasone 4 mg IV Q 6 Assessment & Plan 51-year-old female with lung mass, hyponatremia and via radiographic analysis multiple metastatic lesions to the head and throughout the spine 1. Lung Mass: The patient is to proceed forward with EBUS bronchoscopy today at noon. I will place consult in to Radiation Oncology for the notable [employer] Mets as well as Oncology at this time. 2. [employer]OR lesions: As the patient was having some mild visual changes over left eye there does appear to be associated lesion she was started on Decadron as noted some improvement at this time. 2. Back Pain: Better controlled at this time with Decadron, Dilaudid and cyclobenzaprine. Data Medications: Current Inpatient Medications Medications (Trade) Dose Ordered Sig/Ayanna Route Start Time Stop Time Status Last Admin Dose Admin Ioversol (Optiray 320) 111 ml UD PRN IV 05/22/17 12:45 05/26/17 12:44 Acetaminophen (Tylenol Tab) 650 mg Q4H PRN PO 05/22/17 15:00 06/21/17 14:59 Ondansetron HCl (Zofran Inj) 4 mg Q6H PRN IV 05/22/17 15:00 06/21/17 14:59 05/26/17 02:18 4 MG Pravastatin Sodium (Pravachol Tab) 20 mg DAILY PO 05/23/17 08:00 06/22/17 08:59 05/25/17 09:42 20 MG Acetaminophen 100 ml @ 400 mls/hr Q8H PRN IV 05/23/17 10:00 06/22/17 09:59 05/24/17 17:00 400 MLS/HR Sumatriptan Succinate (Imitrex Tab) 50 mg Q8H PRN PO 05/23/17 19:00 06/22/17 18:59 05/24/17 04:52 50 MG Hydromorphone HCl (Dilaudid Inj) 0.5 mg Q4H PRN IV 05/23/17 19:00 06/06/17 18:59 05/26/17 02:19 0.5 MG Cyclobenzaprine HCl (Flexeril Tab) 5 mg TID PRN PO 05/24/17 12:45 06/23/17 12:44 05/25/17 06:22 5 MG Gadobutrol (Gadavist) 7.2 mmol UD PRN IV 05/24/17 15:40 05/28/17 15:39 Promethazine HCl 25 mg/Sodium Chloride 51 ml @ 204 mls/hr Q6H PRN IV 05/24/17 17:30 06/23/17 17:29 05/24/17 18:27 204 MLS/HR Dexamethasone Sodium Phosphate 4 mg/Syringe 1 ml @ 1 mls/min Q6H IV 05/25/17 00:00 06/24/17 00:00 05/26/17 05:41 1 MLS/MIN Sodium Chloride (Sodium Chloride Tab) 1 gm BID17 PO 05/25/17 17:00 06/24/17 16:59 05/25/17 17:42 1 GM Polyethylene (Miralax Powder Packet) 17 gm DAILY PO 05/26/17 08:00 06/25/17 07:59 Tramadol HCl (Ultram Tab) @ ain not relieved by tylenol Q6H PRN PO 05/25/17 20:15 06/21/17 18:44 Oxycodone/ Acetaminophen (Percocet 5-325mg Tab) 1 tab Q6H PRN PO 05/25/17 20:00 06/08/17 19:59 05/25/17 20:22 1 TAB Vital Signs: Date Time Temp Pulse Resp B/P (MAP) Pulse Ox O2 Delivery O2 Flow Rate FiO2 05/26/17 07:31 36.9 69 18 116/75 (89) 99 Room Air 05/26/17 03:27 36.7 75 18 100/65 (77) 97 Room Air 05/26/17 00:00 Room Air 05/25/17 22:59 36.7 63 19 97/61 (73) 97 Room Air 05/25/17 20:00 Room Air 05/25/17 19:21 36.8 79 18 110/73 (85) 97 Room Air 05/25/17 16:00 Room Air 05/25/17 14:59 36.4 72 18 127/84 (98) 99 05/25/17 11:10 36.3 80 16 143/83 (103) 99 Room Air Laboratory Results: Last 24 Hours Test 05/26/17 06:01 Sodium Level 124 mmol/L Potassium Level 4.5 mmol/L Chloride Level 92 mmol/L Carbon Dioxide Level 26 mmol/L Anion Gap 6.0 mmol/L Blood Urea Nitrogen 17 mg/dl Creatinine 0.82 mg/dl Est Creatinine Clear Calc Drug Dose 85.8 ml/min Estimated GFR () 96.7 Estimated GFR (Non- 83.4 BUN/Creatinine Ratio 20.2 Random Glucose 103 mg/dl Calcium Level 8.9 mg/dl
[2017-05-26] MEDS ORDERED: FENTANYL CITRATE INJ 50 MCG/1 ML 2 ML VIAL ONE (12:19)
[2017-05-26] MEDS ORDERED: MIDAZOLAM HCL 1 MG/ML 2ML VIAL ONE (12:19)
[2017-05-26] MEDS ORDERED: PROPOFOL IV EMULSION 10 MG/ML 20 ML VIAL IV ONE (12:57)
[2017-05-26] MEDS ORDERED: LIDOCAINE HCL 2% 2 ML VIAL (20MG/ML) ONE (12:57)
[2017-05-26] MEDS ORDERED: DEXAMETHASONE SOD INJ 4 MG/ML VIAL ONE (12:58)
[2017-05-26] MEDS ORDERED: ONDANSETRON INJ 2 MG/ML 2 ML VIAL ONE (12:58)
--- NOTE | 2017-05-26 13:32 | Bronchoscopy Procedure Note ---
Bronchoscopy Procedure Note Procedure: Flexible-Bronchoscopy, EBUS, FNA Consent: Obtained through the patient placed into the chart Pre-Procedural Dx: Primary lung carcinoma Post-Procedural Dx: Diffuse small cell lung carcinoma Analgesia: GETA Sedation: GETA Procedure: The Olympus video bronchoscope and EBUS scope were used for this procedure We initially attempted to use a size 4 LMA but due to the anterior position of the patient's epiglottis we had a switch to an ET tube. Initially the flexible bronchoscope was used for evaluation of the airways. The ET tube was notably 6cm above the level of the jerel. Trachea: Visualized portion of the trachea was anatomically within normal limits Jerel: Anatomically within normal limits Right bronchial tree: Right mainstem bronchus: Anatomically within normal limits Right upper lobe: RB3,RB2 notably occluded circumferentially with external compression, diffuse erythema external compression noted and parenchymal changes Secondary jerel: Diffuse splaying of the secondary jerel with notable erythema and parenchymal changes Bronchus intermedius: Erythema noted along the lateral border but no signs of infiltrative process Right middle lobe: Anatomically within normal limits Right lower lobe: Anatomically within normal limits Findings: No significant findings noted Left bronchial tree: Left mainstem bronchus: Anatomically within normal limits Left upper lobe: Anatomically within normal limits Lingula: Anatomically within normal limits Left lower lobe: Anatomically within normal limits Findings: No significant findings noted EBUS/CAM: FNA Jesse Stations: 4R: # of passes 8 EBL: none Complications: None Follow-up: PACU
--- NOTE | 2017-05-26 14:10 | Anesthesiology Progress Note ---
Anesthesia Post Op Note Date & Time May 26, 2017 at 14:10 Vital Signs Pain Intensity: 0.0 Vital Signs Past 12 Hours Date Time Temp Pulse Resp B/P (MAP) Pulse Ox O2 Delivery O2 Flow Rate FiO2 05/26/17 14:00 74 20 152/84 100 Oxymask 10 05/26/17 13:50 83 20 150/87 100 Oxymask 10 05/26/17 13:40 36.3 73 16 139/99 100 Oxymask 10 05/26/17 11:58 36.9 72 18 125/70 (88) 97 Room Air 05/26/17 08:00 99 Room Air 05/26/17 07:31 36.9 69 18 116/75 (89) 99 Room Air 05/26/17 03:27 36.7 75 18 100/65 (77) 97 Room Air Notes Mental Status: alert / awake / arousable, participated in evaluation Pt Amnestic to Procedure: Yes Nausea / Vomiting: adequately controlled Pain: adequately controlled Airway Patency, RR, SpO2: stable & adequate BP & HR: stable & adequate Hydration State: stable & adequate Anesthetic Complications: no major complications apparent
[2017-05-26] MEDS ORDERED: ONDANSETRON INJ 2 MG/ML 2 ML VIAL IV PRN (14:15)
[2017-05-26] MEDS ORDERED: EpHEDrine SULFATE INJ 50 MG/ML AMP IV PRN (14:15)
[2017-05-26] MEDS ORDERED: FENTANYL CITRATE INJ 50 MCG/1 ML 2 ML VIAL IV PRN (14:15)
[2017-05-26] MEDS ORDERED: ATROPINE SULFATE 0.1 MG/ML 5ML SYR IV PRN (14:15)
--- NOTE | 2017-05-26 16:14 | Nephrology Progress Note ---
Nephrology Progress Note Date of Service: May 26, 2017. Subjective 51 yo female with hyponatremia. pt was drinking a lot of water prior to coming into the hospital. had bronch with biopsy done today. currently on fluid restriction, lasix, salt tablets. has not been getting lasix secondary to low blood pressures. currently npo but looks good and to restart clear liquids and advanced as tolerated. Objective Date Time Temp Pulse Resp B/P (MAP) Pulse Ox O2 Delivery O2 Flow Rate FiO2 05/26/17 16:05 36.4 65 18 119/71 (87) 100 Room Air 05/26/17 15:57 36.4 65 18 119/71 (87) 100 Room Air 05/26/17 15:15 36.3 67 20 118/72 (87) 99 Nasal Cannula 2.0 05/26/17 14:45 36.2 67 20 127/82 (97) 99 Nasal Cannula 3.0 05/26/17 14:43 36.3 71 20 118/81 (93) 98 Nasal Cannula 3.0 05/26/17 14:30 36.3 71 20 118/81 (93) 98 Nasal Cannula 3.0 05/26/17 14:20 66 20 133/82 100 Nasal Cannula 2 05/26/17 14:10 36.3 66 20 125/81 100 Nasal Cannula 2 05/26/17 14:00 74 20 152/84 100 Oxymask 10 05/26/17 13:50 83 20 150/87 100 Oxymask 10 05/26/17 13:40 36.3 73 16 139/99 100 Oxymask 10 05/26/17 11:58 36.9 72 18 125/70 (88) 97 Room Air 05/26/17 08:00 99 Room Air 05/26/17 07:31 36.9 69 18 116/75 (89) 99 Room Air 05/26/17 03:27 36.7 75 18 100/65 (77) 97 Room Air 05/26/17 00:00 Room Air 05/25/17 22:59 36.7 63 19 97/61 (73) 97 Room Air 05/25/17 20:00 Room Air 05/25/17 19:21 36.8 79 18 110/73 (85) 97 Room Air Physical Exam: General-aaox3 Eyes-no scleral icterus ENT-mmm Neck-supple Lungs-cta, slight end expiratory wheeze Heart-rrr Abdomen-bs+ s/nt/nd Extremities-no c/c/e Neuro-nonfocal Current Inpatient Medications Medications (Trade) Dose Ordered Sig/Ayanna Route Start Time Stop Time Status Last Admin Dose Admin Acetaminophen (Tylenol Tab) 650 mg Q4H PRN PO 05/22/17 15:00 06/21/17 14:59 Ondansetron HCl (Zofran Inj) 4 mg Q6H PRN IV 05/22/17 15:00 06/21/17 14:59 05/26/17 02:18 4 MG Pravastatin Sodium (Pravachol Tab) 20 mg DAILY PO 05/23/17 08:00 06/22/17 08:59 05/25/17 09:42 20 MG Acetaminophen 100 ml @ 400 mls/hr Q8H PRN IV 05/23/17 10:00 06/22/17 09:59 05/24/17 17:00 400 MLS/HR Sumatriptan Succinate (Imitrex Tab) 50 mg Q8H PRN PO 05/23/17 19:00 06/22/17 18:59 05/24/17 04:52 50 MG Hydromorphone HCl (Dilaudid Inj) 0.5 mg Q4H PRN IV 05/23/17 19:00 06/06/17 18:59 05/26/17 02:19 0.5 MG Cyclobenzaprine HCl (Flexeril Tab) 5 mg TID PRN PO 05/24/17 12:45 06/23/17 12:44 05/25/17 06:22 5 MG Gadobutrol (Gadavist) 7.2 mmol UD PRN IV 05/24/17 15:40 05/28/17 15:39 Promethazine HCl 25 mg/Sodium Chloride 51 ml @ 204 mls/hr Q6H PRN IV 05/24/17 17:30 06/23/17 17:29 05/24/17 18:27 204 MLS/HR Dexamethasone Sodium Phosphate 4 mg/Syringe 1 ml @ 1 mls/min Q6H IV 05/25/17 00:00 06/24/17 00:00 05/26/17 11:33 1 MLS/MIN Sodium Chloride (Sodium Chloride Tab) 1 gm BID17 PO 05/25/17 17:00 06/24/17 16:59 05/25/17 17:42 1 GM Polyethylene (Miralax Powder Packet) 17 gm DAILY PO 05/26/17 08:00 06/25/17 07:59 Tramadol HCl (Ultram Tab) @ ain not relieved by tylenol Q6H PRN PO 05/25/17 20:15 06/21/17 18:44 Oxycodone/ Acetaminophen (Percocet 5-325mg Tab) 1 tab Q6H PRN PO 05/25/17 20:00 06/08/17 19:59 05/25/17 20:22 1 TAB Fentanyl Citrate (Fentanyl Inj) 25 mcg Q5M PRN IV 05/26/17 14:15 05/26/17 19:00 Ondansetron HCl (Zofran Inj) 4 mg ONE PRN IV 05/26/17 14:15 05/26/17 19:00 Ephedrine Sulfate (EpHEDrine SULFATE INJ) 5 mg Q5M PRN IV 05/26/17 14:15 05/26/17 19:00 Atropine Sulfate (Atropine Sulfate 0.1MG/Ml Inj) 0.5 mg Q1M PRN IV 05/26/17 14:15 05/26/17 19:00 Last 24 Hours Test 05/26/17 06:01 Sodium Level 124 mmol/L Potassium Level 4.5 mmol/L Chloride Level 92 mmol/L Carbon Dioxide Level 26 mmol/L Anion Gap 6.0 mmol/L Blood Urea Nitrogen 17 mg/dl Creatinine 0.82 mg/dl Est Creatinine Clear Calc Drug Dose 85.8 ml/min Estimated GFR () 96.7 Estimated GFR (Non- 83.4 BUN/Creatinine Ratio 20.2 Random Glucose 103 mg/dl Calcium Level 8.9 mg/dl Assessment & Plan hyponatremia-currently on fluid restriction and salt tabs. will give lasix 20mg iv daily and give a dose this afternoon. urine osm 317. check tsh levels tomorrow. sodium improved from 120 to 124.
[2017-05-26] MEDS: FUROSEMIDE INJ 20 MG in SYRINGE 0 ML IV SCH (16:37)
--- NOTE | 2017-05-26 17:33 | Progress Note ---
Internal Med Progress Note Date of Service: May 26, 2017. Provider Documentation: SUBJECTIVE: The patient was seen and examined Admitted with right arm pain and right lung Mass and Hyponatremia MRI of the Head,Cervical and Lumbar Spines show Metastatic disease-Patient and the aware Headache and right arm pain better S/P Bronchoscope 05/26/17 OBJECTIVE: Vital Signs-as noted below Exam: General-NO distress at rest Very Anxious Eyes-normal ENT-normal Neck-supple Lungs-occasional wheezing right upper lung Otherwise clear Heart-Regular,no murmur Abdomen-Benign,no masses,bowel sound present Extremities-NO edema Greenish color of the left base of toe nails Neuro-AAOX3 Lab data as noted below. ASSESSMENT & PLAN: Widespread Metastatic disease ::Small Cell Carcinoma of the Lung-Await Pahology MRI of the Head::1. Multiple enhancing lesions within the brain consistent with metastatic disease. 2. The dominant 2.8 x 2.0 x 1.7 cm lesion is located at the sellar/suprasellar location. This results in mild mass effect along the third ventricle and optic chiasm. The ventricles are normal in size at this time without evidence for hydrocephalus. 3. Subcentimeter clival lesion likely represents metastatic disease. MRI of the Cervical Spine::1. Multiple metastatic lesions seen scattered throughout the cervical and thoracic spine. 2. No significant central canal narrowing within the cervical spine. No evidence for epidural involvement of metastatic disease at this time within the cervical spine. 3. However, there is right-sided paraspinal extension of the T3 lesion as described above. This extends into the right T2-T3 and T3-T4 neural foramen resulting in neural foraminal narrowing. This also extends into the right epidural space at T3. However, there is no significant neural foraminal narrowing at this time. 4. No fracture or subluxation within the cervical spine. MRI of the Lumbar Spine::1. Extensive osseous metastatic disease seen throughout the lumbar spine and sacrum. 2. There is 4 mm of epidural involvement at the L1 level. However, there is no significant central canal narrowing at this level. 3. No fractures within the lumbar spine. Started on IV Decadron Pain around the right eye and headache-better S/P Bronchoscopy-Highly likely Small Cell Lung Cancer Radiation Oncology -consulted Will consult Oncologist from the patient's choice Patient remains stable HYPONATREMIA - admit to med/surg - patient presenting to the ED with complaints of right arm pain; also was diagnosed with pneumonia earlier in the week by her PCP - chest CT in the ED showing a RUL lung mass - patient currently appears euvolemic on exam; Na+ 120 - suspect SIADH from underlying lung mass - urine Osmol-317,Serum Osmol-259 and Urine Sodium-58 - start 1.5L fluid restriction; recheck Na+ at 1800 - case discussed with Dr. Ashanti Sethi-appreciate input -slightly better at 124 -further recommendation as per nephrology -IVF and IV Lasix on hold -continue to restrict water intake and IV Lasix as per Nephrology -Sodium Tabs prescribed -Sodium 124 on 05/26/17 RUL LUNG MASS:::Small Cell Lung Cancer -await Pathology CT of the Chest::1. Right upper lobe mass measuring 4.3 cm. 2. Mass continues to involve the right hilum as well as mid mediastinum with dimensions of keisha and hilar/mediastinal pathology measuring from 2.5 to 6.3 cm. 3. Mass compromises the right hilar arterial vasculature as well as upper lobe right mainstem bronchus. 4. Additional nodular density right lung base as well as right paravertebral region at T4-T5. 6. Hepatic metastatic disease. 7. Neoplastic process is the diagnosis of exclusion. 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 -Pain medication as needed -Cervical spine MRI -as above HLD - continue statin pending LFTs DVT PROPHYLAXIS - SQ Lovenox DISPO Awaited Discussed with the and the patient about the MRI findings Vital Signs: Date Time Temp Pulse Resp B/P (MAP) Pulse Ox O2 Delivery O2 Flow Rate FiO2 05/26/17 16:05 36.4 65 18 119/71 (87) 100 Room Air 05/26/17 15:57 36.4 65 18 119/71 (87) 100 Room Air 05/26/17 15:15 36.3 67 20 118/72 (87) 99 Nasal Cannula 2.0 05/26/17 14:45 36.2 67 20 127/82 (97) 99 Nasal Cannula 3.0 05/26/17 14:43 36.3 71 20 118/81 (93) 98 Nasal Cannula 3.0 05/26/17 14:30 36.3 71 20 118/81 (93) 98 Nasal Cannula 3.0 05/26/17 14:20 66 20 133/82 100 Nasal Cannula 2 05/26/17 14:10 36.3 66 20 125/81 100 Nasal Cannula 2 05/26/17 14:00 74 20 152/84 100 Oxymask 10 05/26/17 13:50 83 20 150/87 100 Oxymask 10 05/26/17 13:40 36.3 73 16 139/99 100 Oxymask 10 05/26/17 11:58 36.9 72 18 125/70 (88) 97 Room Air 05/26/17 08:00 99 Room Air 05/26/17 07:31 36.9 69 18 116/75 (89) 99 Room Air 05/26/17 03:27 36.7 75 18 100/65 (77) 97 Room Air 05/26/17 00:00 Room Air 05/25/17 22:59 36.7 63 19 97/61 (73) 97 Room Air 05/25/17 20:00 Room Air 05/25/17 19:21 36.8 79 18 110/73 (85) 97 Room Air Lab Results: Results Past 24 Hours Test 05/26/17 06:01 Range/Units Sodium Level 124 136-145 mmol/L Potassium Level 4.5 3.5-5.1 mmol/L Chloride Level 92 98-107 mmol/L Carbon Dioxide Level 26 21-32 mmol/L Anion Gap 6.0 3-11 mmol/L Blood Urea Nitrogen 17 7-18 mg/dl Creatinine 0.82 0.60-1.20 mg/dl Est Creatinine Clear Calc Drug Dose 85.8 ml/min Estimated GFR () 96.7 Estimated GFR (Non- 83.4 BUN/Creatinine Ratio 20.2 10-20 Random Glucose 103 70-99 mg/dl Calcium Level 8.9 8.5-10.1 mg/dl
[2017-05-26] MEDS ORDERED: COUGH DROP (SUGAR FREE) LOZ 24 LOZ/1 BOX ONE (20:21)
[2017-05-27] VITALS (7 sets, daily range): BP systolic 94–111; BP diastolic 51–71; PULSE 65–87; TEMP 36.3–37.4; O2SAT 93–99
[2017-05-27] MEDS: DEXAMETHASONE INJ 4 MG in SYRINGE 0 ML IV SCH ×3 (05:52→17:46)
[2017-05-27] MEDS: HYDROmorphone INJ 0.5 MG/0.5 ML SYR IV PRN ×4 (06:52→23:50)
[2017-05-27] MEDS: ONDANSETRON INJ 2 MG/ML 2 ML VIAL IV PRN ×3 (06:53→17:43)
--- NOTE | 2017-05-27 07:41 | Anesthesiology Progress Note ---
Anesthesia Post Op Note Date & Time May 27, 2017 at 07:41 Vital Signs Pain Intensity: 7.0 Vital Signs Past 12 Hours Date Time Temp Pulse Resp B/P (MAP) Pulse Ox O2 Delivery O2 Flow Rate FiO2 05/27/17 07:26 36.3 65 16 101/65 (77) 95 Room Air 05/27/17 03:30 37.4 73 18 94/61 (72) 93 Room Air 05/27/17 00:00 Room Air 05/26/17 23:39 36.6 66 18 113/68 (83) 94 Room Air Notes Mental Status: alert / awake / arousable, participated in evaluation Pt Amnestic to Procedure: Yes Nausea / Vomiting: adequately controlled Pain: adequately controlled Airway Patency, RR, SpO2: stable & adequate BP & HR: stable & adequate Hydration State: stable & adequate Anesthetic Complications: no major complications apparent
[2017-05-27] MEDS: SODIUM CHLORIDE 1 GM TAB PO SCH ×2 (07:55→17:00)
[2017-05-27] MEDS: FUROSEMIDE INJ 20 MG in SYRINGE 0 ML IV SCH (07:56)
[2017-05-27] MEDS: PRAVASTATIN SOD 20 MG TAB PO SCH (07:58)
[2017-05-27] MEDS: POLYETHYLENE (MIRALAX) 17 GM PACK PO SCH (08:00)
[2017-05-27 08:03] LABS: CALCIUM 8.7 mg/dl (8.5-10.1); CREATININE 1.03 mg/dl (0.60-1.20); POTASSIUM 4.1 mmol/L (3.5-5.1)
--- NOTE | 2017-05-27 08:04 | Nephrology Progress Note ---
Nephrology Progress Note Date of Service: May 27, 2017. Subjective 51 yo female with hyponatremia. currently on fluid restriction, lasix, salt tablets. had 20mg of iv lasix last night and urinated very well. pt doing well. no complaints. hoping to leave hospital today if possible. Objective Date Time Temp Pulse Resp B/P (MAP) Pulse Ox O2 Delivery O2 Flow Rate FiO2 05/27/17 07:26 36.3 65 16 101/65 (77) 95 Room Air 05/27/17 03:30 37.4 73 18 94/61 (72) 93 Room Air 05/27/17 00:00 Room Air 05/26/17 23:39 36.6 66 18 113/68 (83) 94 Room Air 05/26/17 19:39 36.8 69 18 112/70 (84) 96 Room Air 05/26/17 16:05 36.4 65 18 119/71 (87) 100 Room Air 05/26/17 16:00 Room Air 05/26/17 15:57 36.4 65 18 119/71 (87) 100 Room Air 05/26/17 15:15 36.3 67 20 118/72 (87) 99 Nasal Cannula 2.0 05/26/17 14:45 36.2 67 20 127/82 (97) 99 Nasal Cannula 3.0 05/26/17 14:43 36.3 71 20 118/81 (93) 98 Nasal Cannula 3.0 05/26/17 14:30 36.3 71 20 118/81 (93) 98 Nasal Cannula 3.0 05/26/17 14:20 66 20 133/82 100 Nasal Cannula 2 05/26/17 14:10 36.3 66 20 125/81 100 Nasal Cannula 2 05/26/17 14:00 74 20 152/84 100 Oxymask 10 05/26/17 13:50 83 20 150/87 100 Oxymask 10 05/26/17 13:40 36.3 73 16 139/99 100 Oxymask 10 05/26/17 11:58 36.9 72 18 125/70 (88) 97 Room Air Physical Exam: General-aaox3 Eyes-no scleral icterus ENT-mmm Neck-supple Lungs-clear Heart-regular Abdomen-bs+ s/nt/nd Extremities-no c/c/e Neuro-nonfocal Current Inpatient Medications Medications (Trade) Dose Ordered Sig/Ayanna Route Start Time Stop Time Status Last Admin Dose Admin Acetaminophen (Tylenol Tab) 650 mg Q4H PRN PO 05/22/17 15:00 06/21/17 14:59 Ondansetron HCl (Zofran Inj) 4 mg Q6H PRN IV 05/22/17 15:00 06/21/17 14:59 05/27/17 06:53 4 MG Pravastatin Sodium (Pravachol Tab) 20 mg DAILY PO 05/23/17 08:00 06/22/17 08:59 05/25/17 09:42 20 MG Acetaminophen 100 ml @ 400 mls/hr Q8H PRN IV 05/23/17 10:00 06/22/17 09:59 05/24/17 17:00 400 MLS/HR Sumatriptan Succinate (Imitrex Tab) 50 mg Q8H PRN PO 05/23/17 19:00 06/22/17 18:59 05/24/17 04:52 50 MG Hydromorphone HCl (Dilaudid Inj) 0.5 mg Q4H PRN IV 05/23/17 19:00 06/06/17 18:59 05/27/17 06:52 0.5 MG Cyclobenzaprine HCl (Flexeril Tab) 5 mg TID PRN PO 05/24/17 12:45 06/23/17 12:44 05/25/17 06:22 5 MG Gadobutrol (Gadavist) 7.2 mmol UD PRN IV 05/24/17 15:40 05/28/17 15:39 Promethazine HCl 25 mg/Sodium Chloride 51 ml @ 204 mls/hr Q6H PRN IV 05/24/17 17:30 06/23/17 17:29 05/24/17 18:27 204 MLS/HR Dexamethasone Sodium Phosphate 4 mg/Syringe 1 ml @ 1 mls/min Q6H IV 05/25/17 00:00 06/24/17 00:00 05/27/17 05:52 1 MLS/MIN Sodium Chloride (Sodium Chloride Tab) 1 gm BID17 PO 05/25/17 17:00 06/24/17 16:59 05/26/17 16:36 1 GM Polyethylene (Miralax Powder Packet) 17 gm DAILY PO 05/26/17 08:00 1/17/18 07:59 05/26/17 18:14 17 GM Tramadol HCl (Ultram Tab) @ ain not relieved by tylenol Q6H PRN PO 05/25/17 20:15 06/21/17 18:44 Oxycodone/ Acetaminophen (Percocet 5-325mg Tab) 1 tab Q6H PRN PO 05/25/17 20:00 06/08/17 19:59 05/25/17 20:22 1 TAB Furosemide 20 mg/ Syringe 2 ml @ 4 mls/min DAILY@0800 IV 05/26/17 16:30 06/25/17 16:29 05/26/17 16:37 4 MLS/MIN Last 24 Hours Test 05/27/17 07:28 Assessment & Plan hyponatremia-currently on fluid restriction and salt tabs and lasix 20 iv daily. goal is sodium >130. ok to leave from renal perspective with a sodium > 125. would send out on lasix 20mg po daily, 1500cc fluid restriction and salt tabs one po bid and follow sodium levels twice a week as outpt once medically stable for discharge.
--- NOTE | 2017-05-27 14:05 | Radiation Oncology Consult ---
Radiation Oncology Consult Date / Reason May 27, 2017. Physicians Primary Care Provider: Dr. Garcia Radiation Oncologist: Dr. Erna Henao Other Providers: Dr. Giordano - Pulmonary Dr. Florez - Hospitalist Diagnosis (1) Lung cancer Stage: IV Permanent Comment: Final path pending - preliminary pathology is small cell lung cancer Last Edited By: Erna Henao on May 27, 2017 13:37 History of Present Illness I am seeing Ms. Sanchez in consultation at the request of Dr. Jac Florez. The patient was seen at bedside with her . ECOG PS: 0 Ms. Sanchez is a 51-year-old female with no significant past medical history who recently presented with exertional dyspnea that has progressively increased. The patient was eventually seen by her primary care physician who noted some wheezing in her lungs. The patient was also complaining of right shoulder pain and did have a x-ray of the right shoulder on 05/22/2017 which revealed no evidence of an acute process involving the right shoulder however a did reveal a potential enlargement involving the right hilum. The patient did have a CT of the thorax completed on 05/22/2017 which revealed: "IMPRESSION: 1. Right upper lobe mass measuring 4.3 cm. 2. Mass continues to involve the right hilum as well as mid mediastinum with dimensions of keisha and hilar/mediastinal pathology measuring from 2.5 to 6.3 cm. 3. Mass compromises the right hilar arterial vasculature as well as upper lobe right mainstem bronchus. 4. Additional nodular density right lung base as well as right paravertebral region at T4-T5. 6. Hepatic metastatic disease." The patient was then sent to the emergency room and was admitted to [facility]. The patient did have a MRI of the cervical spine completed on 05/24/2017 which revealed: "IMPRESSION: 1. Multiple metastatic lesions seen scattered throughout the cervical and thoracic spine. 2. No significant central canal narrowing within the cervical spine. No evidence for epidural involvement of metastatic disease at this time within the cervical spine. 3. However, there is right- sided paraspinal extension of the T3 lesion as described above. This extends into the right T2-T3 and T3-T4 neural foramen resulting in neural foraminal narrowing. This also extends into the right epidural space at T3. However, there is no significant neural foraminal narrowing at this time. 4. No fracture or subluxation within the cervical spine." The patient also had an MRI of the brain on 05/24/2017 which revealed: "1. Multiple enhancing lesions within the brain consistent with metastatic disease. 2. The dominant 2.8 x 2.0 x 1.7 cm lesion is located at the sellar/ suprasellar location. This results in mild mass effect along the third ventricle and optic chiasm. The ventricles are normal in size at this time without evidence for hydrocephalus. 3. Subcentimeter clival lesion likely represents metastatic disease." The patient had an MRI of the lumbar spine on 05/24/2017 which revealed: "1. Extensive osseous metastatic disease seen throughout the lumbar spine and sacrum. 2. There is 4 mm of epidural involvement at the L1 level. However, there is no significant central canal narrowing at this level. 3. No fractures within the lumbar spine." The patient underwent a bronchoscopy by Dr. Giordano on 05/26/2017 which revealed: "Right upper lobe: RB3,RB2 notably occluded circumferentially with external compression, diffuse erythema external compression noted and parenchymal changes. Secondary jerel: Diffuse splaying of the secondary jerel with notable erythema and parenchymal changes. Bronchus intermedius: Erythema noted along the lateral border but no signs of infiltrative process." Dr. Giordano did perform a biopsy of the station 4R lymph node and the preliminary diagnosis favors small cell lung carcinoma. We have been asked to evaluate the patient for consideration of radiation therapy to the brain. Medical oncology consultation is still pending. Currently, the patient does complain of some bilateral peripheral visual field deficits otherwise she has no neurologic complaints. Past History Past Medical/Surgical History: Other (Migraine, Hyperlipidemia) Surgical History Surgeries: Yes Surgeries & Dates: Breast biopsy section Radiation History History of Radiation Therapy: None Chemotherapy History History of Chemotherapy: None Family History Diabetes, CAD Social History Smoking Status: Former Smoker Quit Date: May 22, 2014 Hx Alcohol Use: No Hx Substance Use : No Marital Status: Allergies Coded Allergies: No Known Allergies (Unverified , 05/22/17) Home Medications Scheduled Aspirin (Aspirin Ec), 81 MG PO DAILY Ciprofloxacin Hcl (Cipro), 500 MG PO BID Pravastatin (Pravachol ), 20 MG PO DAILY Prednisone (Prednisone), 0 PO UD Scheduled PRN Albuterol Hfa (Ventolin Hfa), 1 PUFFS INH TID PRN for SOB/Wheezing Review of Systems Ear/Hearing: Ear Side: Bilateral Hearing Ability: Normal Hearing Aid: None Edema: Present?: No Sexuality-Female: Patient ?: No Physical Exam Height: 5 (Feet) 9.00 (Inches) 175.3 (Centimeters) 1.7526 (Meters) Weight: 150 (Pounds) 2.1 (Ounces) 68.100 (Kilograms) 41691.000 (Grams) Date Time Temp Pulse Resp B/P (MAP) Pulse Ox O2 Delivery O2 Flow Rate FiO2 05/27/17 11:04 36.7 82 16 102/69 (80) 96 05/27/17 08:20 Room Air 05/27/17 07:26 36.3 65 16 101/65 (77) 95 Room Air 05/27/17 03:30 37.4 73 18 94/61 (72) 93 Room Air 05/27/17 00:00 Room Air 05/26/17 23:39 36.6 66 18 113/68 (83) 94 Room Air 05/26/17 19:39 36.8 69 18 112/70 (84) 96 Room Air 05/26/17 16:05 36.4 65 18 119/71 (87) 100 Room Air 05/26/17 16:00 Room Air 05/26/17 15:57 36.4 65 18 119/71 (87) 100 Room Air 05/26/17 15:15 36.3 67 20 118/72 (87) 99 Nasal Cannula 2.0 05/26/17 14:45 36.2 67 20 127/82 (97) 99 Nasal Cannula 3.0 05/26/17 14:43 36.3 71 20 118/81 (93) 98 Nasal Cannula 3.0 05/26/17 14:30 36.3 71 20 118/81 (93) 98 Nasal Cannula 3.0 05/26/17 14:20 66 20 133/82 100 Nasal Cannula 2 05/26/17 14:10 36.3 66 20 125/81 100 Nasal Cannula 2 05/26/17 14:00 74 20 152/84 100 Oxymask 10 05/26/17 13:50 83 20 150/87 100 Oxymask 10 05/26/17 13:40 36.3 73 16 139/99 100 Oxymask 10 Pain Management Patient Reports Pain: No Side: Mid Pain Location: Back Patient Preferred Pain Scale: 0 - 10 Initial Pain Intensity: 7.0 Level of Consciousness: Spontaneously Alert Relief Measures: Medication - Injection Pain Medication Comment: Denies pain at present. Pain Intervention: See [facility] Pain Management Plan Continue on current inpatient medications, refer to MAR. Laboratory Laboratory Results: were reviewed, not applicable Pathology Pathology Results: pending (Preliminary diagnosis of small cell lung cancer from station 4R (05/26/17, Dr. Giordano)) Imaging Imaging Studies: were reviewed, and pertinent findings noted in HPI Treatment Plan 1. CT simulation followed by initiation of whole brain radiation therapy starting tomorrow (10 fractions) 2. Consider Decadron 4 mg PO twice daily if no contraindications. 3. Recommend medical oncology consultation. 4. Recommend PET/CT in the outpatient setting. Assessment & Recommendations Ms. Sanchez is a 51-year-old female who was recently diagnosed with presumed metastatic small cell lung carcinoma with disease involving the brain. 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 We are now seeing the patient in consultation discuss role of radiation therapy. Based on the patient's neurologic symptoms, imaging studies and preliminary pathology results, we have recommended a course of palliative whole brain radiation therapy. Additionally, we have recommended initiation of Decadron 4 mg twice daily if there are no contraindications. Additionally, we will recommend medical oncology consultation in a PET/CT scan in the outpatient setting after the patient is discharged from hospital. The patient was in agreement with this plan. We will have the patient come down today for CT examination for treatment planning. We explained the indications, alternatives, benefits, risks and side effects of external beam radiation therapy to the brain. We explain the most common side effects including but not limited to skin erythema, skin break down, hair loss, radiation necrosis, fatigue, short-term memory loss, decreased neurocognitive performance, cerebral edema, hearing loss, damage to cochlea structures, seizures, loss of sensory and or motor function. We explained the treatment planning process and what to expect before during and after treatment. The patient understands and would be willing to consent to treatment. The patient and family had multiple questions which were answered to their full satisfaction. Thank you for allowing us to participate in the care of this patient. This chart was completed in part utilizing [employer] Voice Recognition software. Attempts were made to minimize the grammatical errors, random word insertions, pronoun errors and incomplete sentences. Any formal questions or concerns about the content, text or information contained within the body of this dictation should be directly addressed to the provider for clarification. Erna Henao MD Department of Radiation Oncology [facility] and Laurita Hernandez [facility] Total Time In Consultation I spent 30 minutes examining and counseling the patient. I spent 15 minutes completing this note. [employer] Copy To Colton Garcia M.D.; Mic Awad MD; Jac Florez MD; Osei Giordano MD
--- NOTE | 2017-05-27 17:09 | Oncology Consultation ---
Oncology/Heme Consultation Date of Consultation: May 27, 2017. Attending Physician: Jac Florez MD Reason for Consultation: Extensive stage small cell lung cancer History of Present Illness Ms. Sanchez is a generally healthy 51 year old former heavy smoker. She was in her usual state of health until a few weeks ago, when she began experiencing some respiratory symptoms and increasing fatigue. She was treated as an outpatient, first with antibiotics and then with steroids and bronchodilators, but did not see much improvement. She began noticing right shoulder pain which led to an x-ray on 05/22, which suggested possible right lung hilar enlargement. Subsequent CT chest 05/22 revealed a 4.3 cm right upper lobe lung mass, involving the hilum, right upper lobe bronchus, and RUL vasculature. A large hypodensity in the dome of the liver was also noted, suspicious for metastatic disease. MRI of her brain that day revealed multiple enhancing lesions, consistent with metastases, including one that resulted in mass effect upon the third ventricle and optic chiasm. MRIs of her C/T/L spine revealed widespread osseous metastatic disease without evidence of cord compression. She had lab work as an outpatient that revealed a sodium of 120, which led to her hospitalization and the above workup. She was started on fluid restriction and her sodium is improving. On 05/26/17, she underwent bronchoscopy with EBUS and biopsy of a 4R mediastinal lymph node that revealed small cell lung carcinoma that was positive with TTF-1, chromogranin (weak), synaptophysin, and [id number]. She reports some blurry vision that improved a bit with the steroids she received for her possible bronchitis. Otherwise, aside from some generalized fatigue, she is almost entirely asymptomatic. Family History Diabetes mellitus MOTHER FH: CAD (coronary artery disease) FATHER BROTHER Social History Smoking Status: Former Smoker Alcohol Use: occasionally Drug Use: none Marital Status: Housing Status: lives with family Allergies Coded Allergies: No Known Allergies (Unverified , 05/22/17) Home Medications Scheduled Aspirin (Aspirin Ec), 81 MG PO DAILY Ciprofloxacin Hcl (Cipro), 500 MG PO BID Pravastatin (Pravachol ), 20 MG PO DAILY Prednisone (Prednisone), 0 PO UD Scheduled PRN Albuterol Hfa (Ventolin Hfa), 1 PUFFS INH TID PRN for SOB/Wheezing Current Inpatient Medications Current Inpatient Medications Medications (Trade) Dose Ordered Sig/Ayanna Route Start Time Stop Time Status Last Admin Dose Admin Acetaminophen (Tylenol Tab) 650 mg Q4H PRN PO 05/22/17 15:00 06/21/17 14:59 Ondansetron HCl (Zofran Inj) 4 mg Q6H PRN IV 05/22/17 15:00 06/21/17 14:59 05/27/17 12:15 4 MG Pravastatin Sodium (Pravachol Tab) 20 mg DAILY PO 05/23/17 08:00 06/22/17 08:59 05/25/17 09:42 20 MG Acetaminophen 100 ml @ 400 mls/hr Q8H PRN IV 05/23/17 10:00 06/22/17 09:59 05/24/17 17:00 400 MLS/HR Sumatriptan Succinate (Imitrex Tab) 50 mg Q8H PRN PO 05/23/17 19:00 06/22/17 18:59 05/24/17 04:52 50 MG Hydromorphone HCl (Dilaudid Inj) 0.5 mg Q4H PRN IV 05/23/17 19:00 06/06/17 18:59 05/27/17 12:15 0.5 MG Cyclobenzaprine HCl (Flexeril Tab) 5 mg TID PRN PO 05/24/17 12:45 06/23/17 12:44 05/25/17 06:22 5 MG Gadobutrol (Gadavist) 7.2 mmol UD PRN IV 05/24/17 15:40 05/28/17 15:39 Promethazine HCl 25 mg/Sodium Chloride 51 ml @ 204 mls/hr Q6H PRN IV 05/24/17 17:30 06/23/17 17:29 05/24/17 18:27 204 MLS/HR Dexamethasone Sodium Phosphate 4 mg/Syringe 1 ml @ 1 mls/min Q6H IV 05/25/17 00:00 06/24/17 00:00 05/27/17 12:15 1 MLS/MIN Sodium Chloride (Sodium Chloride Tab) 1 gm BID17 PO 05/25/17 17:00 06/24/17 16:59 05/27/17 07:55 1 GM Polyethylene (Miralax Powder Packet) 17 gm DAILY PO 05/26/17 08:00 06/25/17 07:59 05/26/17 18:14 17 GM Tramadol HCl (Ultram Tab) @ ain not relieved by tylenol Q6H PRN PO 05/25/17 20:15 06/21/17 18:44 Oxycodone/ Acetaminophen (Percocet 5-325mg Tab) 1 tab Q6H PRN PO 05/25/17 20:00 06/08/17 19:59 05/25/17 20:22 1 TAB Furosemide 20 mg/ Syringe 2 ml @ 4 mls/min DAILY@0800 IV 05/26/17 16:30 06/25/17 16:29 05/27/17 07:56 4 MLS/MIN Review of Systems Constitutional: + fatigue, No fever, No chills, No weight loss ENT: No unusual epistaxis Respiratory: + cough, + shortness of breath, No hemoptysis Cardiovascular: No chest pain Abdomen: No pain, No nausea, No vomiting Musculoskeletal: No joint pain, No muscle pain Neurologic: No paralysis, No weakness Hematologic / Lymphatic: No abnormal bleeding/bruising, No night sweats Physical Exam Date Time Temp Pulse Resp B/P (MAP) Pulse Ox O2 Delivery O2 Flow Rate FiO2 05/27/17 15:26 36.5 72 18 106/51 (69) 99 Room Air 05/27/17 11:04 36.7 82 16 102/69 (80) 96 05/27/17 08:20 Room Air 05/27/17 07:26 36.3 65 16 101/65 (77) 95 Room Air 05/27/17 03:30 37.4 73 18 94/61 (72) 93 Room Air 05/27/17 00:00 Room Air 05/26/17 23:39 36.6 66 18 113/68 (83) 94 Room Air 05/26/17 19:39 36.8 69 18 112/70 (84) 96 Room Air General Appearance: WD/WN, no apparent distress Eyes: EOMI Respiratory/Chest: lungs clear Cardiovascular: regular rate, rhythm Abdomen/GI: non tender, soft Extremities/Musculoskelatal: no pedal edema Neurologic/Psych: no motor/sensory deficits (grossly), alert, oriented x 3 Laboratory Results Last 24 Hours Test 05/27/17 00:00 05/27/17 07:28 Urine Osmolality 471 mOms/kg Sodium Level 128 mmol/L Potassium Level 4.1 mmol/L Chloride Level 92 mmol/L Carbon Dioxide Level 27 mmol/L Anion Gap 9.0 mmol/L Blood Urea Nitrogen 20 mg/dl Creatinine 1.03 mg/dl Est Creatinine Clear Calc Drug Dose 68.3 ml/min Estimated GFR () 73.4 Estimated GFR (Non- 63.3 BUN/Creatinine Ratio 19.5 Random Glucose 104 mg/dl Calcium Level 8.7 mg/dl Magnesium Level 2.4 mg/dl Thyroid Stimulating Hormone (TSH) 0.066 uIu/ml Assessment & Plan Ms. Sanchez is an unfortunate 51 year old former smoker with no prior medical history. She came to attention with symptoms of a possible upper respiratory illness, right shoulder pain, and subtle constitutional symptoms. Lab work revealed a sodium of 120 and so she was admitted for management. Imaging revealed a mass in her right lung with evidence of metastases to her liver, brain, and extensive involvement of her vertebral column. An EBUS with biopsy of a 4R mediastinal node yesterday revealed small cell lung cancer. She clearly has extensive stage disease, which is incurable. Her disease, despite its widespread extent, is causing surprisingly few symptoms. She strikes me, from our conversation, as someone who might minimize their pain, however, so she may be in more discomfort than she lets on. Regardless, her first priority is to address her ENDODONTICS DENTIST metastases. She left for CT simulation for RT immediately following our visit and will start WBRT tomorrow. This should be finished by around 06/12/17. I would like to start chemo (Carbo/Etoposide) the following week. In the meantime, she requires a port. If this could be arranged while she's admitted, that would be ideal. 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 I do not feel she has an indication for emergent inpatient chemotherapy, but if we cannot control her sodium medically, that might be a reason to do so. Her prognosis is unfortunately grim, though she likely will enjoy a fairly robust initial response to chemotherapy. The goal of all of her therapy will be palliation.
--- NOTE | 2017-05-27 17:19 | Progress Note ---
Internal Med Progress Note Date of Service: May 27, 2017. Provider Documentation: SUBJECTIVE: Seen and examined at bedside Reports Lower back pain and constipation Denies chest pain, SOB, dizziness Family at bedside OBJECTIVE: Vital Signs-as noted below Physical Exam: General Appearance:Moderately built and nourished, no apparent distress Head: normocephalic, Atraumatic Eyes: normal inspection, EOMI, PERRL Neck: supple, Trachea midline Respiratory/Chest: Normal breath sounds, CTA Cardiovascular: S1, S2, No murmur Abdomen/GI:Soft, Non tender, Bowel sounds present Extremities/Musculoskelatal:normal inspection, no edema Neurologic/Psych:AAOX3, grossly no focal neurological deficits Skin: normal color, warm Lab data as noted below. ASSESSMENT & PLAN: Metastatic Small Cell Carcinoma of the Lung: MRI of the Head::1. Multiple enhancing lesions within the brain consistent with metastatic disease. 2. The dominant 2.8 x 2.0 x 1.7 cm lesion is located at the sellar/suprasellar location. This results in mild mass effect along the third ventricle and optic chiasm. The ventricles are normal in size at this time without evidence for hydrocephalus. 3. Subcentimeter clival lesion likely represents metastatic disease. MRI of the Cervical Spine::1. Multiple metastatic lesions seen scattered throughout the cervical and thoracic spine. 2. No significant central canal narrowing within the cervical spine. No evidence for epidural involvement of metastatic disease at this time within the cervical spine. 3. However, there is right-sided paraspinal extension of the T3 lesion as described above. This extends into the right T2-T3 and T3-T4 neural foramen resulting in neural foraminal narrowing. This also extends into the right epidural space at T3. However, there is no significant neural foraminal narrowing at this time. 4. No fracture or subluxation within the cervical spine. MRI of the Lumbar Spine::1. Extensive osseous metastatic disease seen throughout the lumbar spine and sacrum. 2. There is 4 mm of epidural involvement at the L1 level. However, there is no significant central canal narrowing at this level. 3. No fractures within the lumbar spine. Continue IV Decadron Pain around the right eye and headache improved S/P Bronchoscopy:Small Cell Lung Cancer Appreciate Pulmonary help Appreciate Radiation Oncology and Heme Oncology Input Needs Chemo Port Prior to discharge Hyponatremia: Likely secondary to SIADH Na levels Improved Appreciate Nephrology Input Continue IV Lasix, Fluid Restriction and salt tablets Plan to discharge on lasix 20mg po daily, 1500cc fluid restriction and salt tabs one po bid Needs follow up with sodium levels twice a week as outpatient upon discharge. 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 and local infiltration of brachial plexus Pain medication as needed Cervical spine MRI -as above Constipation: Start bowel regimen HLD continue statin DVT Px: SQ Lovenox Disposition: Plan to discharge home when stable Vital Signs: Date Time Temp Pulse Resp B/P (MAP) Pulse Ox O2 Delivery O2 Flow Rate FiO2 05/27/17 15:26 36.5 72 18 106/51 (69) 99 Room Air 05/27/17 11:04 36.7 82 16 102/69 (80) 96 05/27/17 08:20 Room Air 05/27/17 07:26 36.3 65 16 101/65 (77) 95 Room Air 05/27/17 03:30 37.4 73 18 94/61 (72) 93 Room Air 05/27/17 00:00 Room Air 05/26/17 23:39 36.6 66 18 113/68 (83) 94 Room Air 05/26/17 19:39 36.8 69 18 112/70 (84) 96 Room Air Lab Results: Results Past 24 Hours Test 05/27/17 00:00 05/27/17 07:28 Range/Units Urine Osmolality 471 500-800 mOms/kg Sodium Level 128 136-145 mmol/L Potassium Level 4.1 3.5-5.1 mmol/L Chloride Level 92 98-107 mmol/L Carbon Dioxide Level 27 21-32 mmol/L Anion Gap 9.0 3-11 mmol/L Blood Urea Nitrogen 20 7-18 mg/dl Creatinine 1.03 0.60-1.20 mg/dl Est Creatinine Clear Calc Drug Dose 68.3 ml/min Estimated GFR () 73.4 Estimated GFR (Non- 63.3 BUN/Creatinine Ratio 19.5 10-20 Random Glucose 104 70-99 mg/dl Calcium Level 8.7 8.5-10.1 mg/dl Magnesium Level 2.4 1.8-2.4 mg/dl Thyroid Stimulating Hormone (TSH) 0.066 0.300-4.500 uIu/ml
[2017-05-27] MEDS: DOCUSATE SODIUM 100 MG CAP PO SCH (19:22)
[2017-05-28] MEDS: DEXAMETHASONE INJ 4 MG in SYRINGE 0 ML IV SCH ×5 (00:23→23:52)
[2017-05-28 03:37] VITALS: BP 96/60; PULSE 73; TEMP 36.8; O2SAT 97
[2017-05-28] MEDS: HYDROmorphone INJ 0.5 MG/0.5 ML SYR IV PRN ×2 (05:38→11:30)
[2017-05-28 07:32] LABS: HEMATOCRIT 33.8 % (37-47); HEMOGLOBIN 11.8 g/dL (12.0-16.0); MEAN CELL VOLUME 90.4 fL (80-100); MEAN CORPUSCULAR HEMOGLOBIN 31.6 pg (25-34); MEAN CORPUSCULAR HGB CONC 34.9 g/dl (32-36); MEAN PLATELET VOLUME 8.7 fL (7.4-10.4); PLATELET COUNT 142 K/uL (130-400); RED CELL DISTRIBUTION WIDTH CV 13.1 % (11.5-14.5); WHITE BLOOD COUNT 8.38 K/uL (4.8-10.8)
[2017-05-28 07:36] VITALS: BP 97/62; PULSE 66; TEMP 36.8; O2SAT 96
[2017-05-28 07:58] LABS: CALCIUM 8.6 mg/dl (8.5-10.1); CREATININE 0.85 mg/dl (0.60-1.20); POTASSIUM 4.2 mmol/L (3.5-5.1)
[2017-05-28] MEDS ORDERED: POLYETHYLENE (MIRALAX) 17 GM PACK PO PRN ×2 (08:00→20:45)
[2017-05-28] MEDS: PRAVASTATIN SOD 20 MG TAB PO SCH ×2 (08:36→08:37)
[2017-05-28] MEDS: DOCUSATE SODIUM 100 MG CAP PO SCH (08:36)
[2017-05-28] MEDS: SODIUM CHLORIDE 1 GM TAB PO SCH ×2 (08:36→16:18)
[2017-05-28] MEDS: FUROSEMIDE INJ 20 MG in SYRINGE 0 ML IV SCH (08:36)
--- NOTE | 2017-05-28 09:20 | Nephrology Progress Note ---
Nephrology Progress Note Date of Service: May 28, 2017. Subjective 51 yo female with hyponatremia. currently on fluid restriction, lasix, salt tablets. sodium levels have trended up to 130. pt doing well. bp was low but asymptomatic. no lightheadedness. Objective Date Time Temp Pulse Resp B/P (MAP) Pulse Ox O2 Delivery O2 Flow Rate FiO2 05/28/17 07:36 36.8 66 18 97/62 (74) 96 05/28/17 03:37 36.8 73 19 96/60 (72) 97 Room Air 05/28/17 01:00 Room Air 05/27/17 22:45 36.4 87 18 111/71 (84) 97 Room Air 05/27/17 19:41 36.9 69 18 102/65 (77) 97 Room Air 05/27/17 16:00 99 Room Air 05/27/17 15:26 36.5 72 18 106/51 (69) 99 Room Air 05/27/17 11:04 36.7 82 16 102/69 (80) 96 Physical Exam: General-aaox3 Eyes-no scleral icterus ENT-mmm Neck-supple Lungs-cta Heart-rrr Abdomen-bs+ s/nt/nd Extremities-no c/c/e Neuro-nonfocal Current Inpatient Medications Medications (Trade) Dose Ordered Sig/Ayanna Route Start Time Stop Time Status Last Admin Dose Admin Acetaminophen (Tylenol Tab) 650 mg Q4H PRN PO 05/22/17 15:00 06/21/17 14:59 Ondansetron HCl (Zofran Inj) 4 mg Q6H PRN IV 05/22/17 15:00 06/21/17 14:59 05/27/17 17:43 4 MG Pravastatin Sodium (Pravachol Tab) 20 mg DAILY PO 05/23/17 08:00 06/22/17 08:59 05/25/17 09:42 20 MG Acetaminophen 100 ml @ 400 mls/hr Q8H PRN IV 05/23/17 10:00 06/22/17 09:59 05/24/17 17:00 400 MLS/HR Sumatriptan Succinate (Imitrex Tab) 50 mg Q8H PRN PO 05/23/17 19:00 06/22/17 18:59 05/24/17 04:52 50 MG Hydromorphone HCl (Dilaudid Inj) 0.5 mg Q4H PRN IV 05/23/17 19:00 06/06/17 18:59 05/28/17 05:38 0.5 MG Cyclobenzaprine HCl (Flexeril Tab) 5 mg TID PRN PO 05/24/17 12:45 06/23/17 12:44 05/25/17 06:22 5 MG Gadobutrol (Gadavist) 7.2 mmol UD PRN IV 05/24/17 15:40 05/28/17 15:39 Promethazine HCl 25 mg/Sodium Chloride 51 ml @ 204 mls/hr Q6H PRN IV 05/24/17 17:30 06/23/17 17:29 05/24/17 18:27 204 MLS/HR Dexamethasone Sodium Phosphate 4 mg/Syringe 1 ml @ 1 mls/min Q6H IV 05/25/17 00:00 06/24/17 00:00 05/28/17 06:06 1 MLS/MIN Sodium Chloride (Sodium Chloride Tab) 1 gm BID17 PO 05/25/17 17:00 06/24/17 16:59 05/28/17 08:36 1 GM Tramadol HCl (Ultram Tab) @ ain not relieved by tylenol Q6H PRN PO 05/25/17 20:15 06/21/17 18:44 Oxycodone/ Acetaminophen (Percocet 5-325mg Tab) 1 tab Q6H PRN PO 05/25/17 20:00 06/08/17 19:59 05/25/17 20:22 1 TAB Polyethylene (Miralax Powder Packet) 17 gm DAILY PRN PO 05/28/17 08:00 06/25/17 07:59 05/28/17 03:57 17 GM Docusate Sodium (coLACE CAP) 100 mg BID PO 05/27/17 20:00 06/26/17 19:59 05/28/17 08:36 100 MG Last 24 Hours Test 05/28/17 06:59 White Blood Count 8.38 K/uL Red Blood Count 3.74 M/uL Hemoglobin 11.8 g/dL Hematocrit 33.8 % Mean Corpuscular Volume 90.4 fL Mean Corpuscular Hemoglobin 31.6 pg Mean Corpuscular Hemoglobin Concent 34.9 g/dl RDW Standard Deviation 43.0 fL RDW Coefficient of Variation 13.1 % Platelet Count 142 K/uL Mean Platelet Volume 8.7 fL Sodium Level 130 mmol/L Potassium Level 4.2 mmol/L Chloride Level 95 mmol/L Carbon Dioxide Level 28 mmol/L Anion Gap 6.0 mmol/L Blood Urea Nitrogen 18 mg/dl Creatinine 0.85 mg/dl Est Creatinine Clear Calc Drug Dose 82.8 ml/min Estimated GFR () 92.6 Estimated GFR (Non- 79.9 BUN/Creatinine Ratio 21.3 Random Glucose 96 mg/dl Calcium Level 8.6 mg/dl Assessment & Plan hyponatremia-currently on fluid restriction and salt tabs and lasix 20 iv daily. with bp dropping again although asymptomatic, have stopped the iv lasix. would like to hold off on oral lasix for now and just do fluid restriction and salt tablets since volume status is good. would recommend twice a week outpt bmp and if sodium levels start to drop as an outpt, will start oral lasix at that time.
[2017-05-28 11:56] VITALS: BP 99/65; PULSE 75; TEMP 36.4; O2SAT 97
[2017-05-28 15:27] VITALS: BP 105/64; PULSE 77; TEMP 36.8; O2SAT 97
[2017-05-28] MEDS ORDERED: DOCUSATE SODIUM/SENNA 50/8.6MG TAB PO ONE ×2 (16:45→20:34)
--- NOTE | 2017-05-28 16:52 | Progress Note ---
Internal Med Progress Note Date of Service: May 28, 2017. Provider Documentation: SUBJECTIVE: Seen and examined at bedside Reports Lower back pain is controlled Still has constipation Denies chest pain, SOB, dizziness Family at bedside Planned for Chemo port placement tomorrow Got radiation therapy today OBJECTIVE: Vital Signs-as noted below Physical Exam: General Appearance:Moderately built and nourished, no apparent distress Head: normocephalic, Atraumatic Eyes: normal inspection, EOMI, PERRL Neck: supple, Trachea midline Respiratory/Chest: Normal breath sounds, CTA Cardiovascular: S1, S2, No murmur Abdomen/GI:Soft, Non tender, Bowel sounds present Extremities/Musculoskelatal:normal inspection, no edema Neurologic/Psych:AAOX3, grossly no focal neurological deficits Skin: normal color, warm Lab data as noted below. ASSESSMENT & PLAN: Metastatic Small Cell Carcinoma of the Lung: MRI of the Head::1. Multiple enhancing lesions within the brain consistent with metastatic disease. 2. The dominant 2.8 x 2.0 x 1.7 cm lesion is located at the sellar/suprasellar location. This results in mild mass effect along the third ventricle and optic chiasm. The ventricles are normal in size at this time without evidence for hydrocephalus. 3. Subcentimeter clival lesion likely represents metastatic disease. MRI of the Cervical Spine::1. Multiple metastatic lesions seen scattered throughout the cervical and thoracic spine. 2. No significant central canal narrowing within the cervical spine. No evidence for epidural involvement of metastatic disease at this time within the cervical spine. 3. However, there is right-sided paraspinal extension of the T3 lesion as described above. This extends into the right T2-T3 and T3-T4 neural foramen resulting in neural foraminal narrowing. This also extends into the right epidural space at T3. However, there is no significant neural foraminal narrowing at this time. 4. No fracture or subluxation within the cervical spine. MRI of the Lumbar Spine::1. Extensive osseous metastatic disease seen throughout the lumbar spine and sacrum. 2. There is 4 mm of epidural involvement at the L1 level. However, there is no significant central canal narrowing at this level. 3. No fractures within the lumbar spine. Continue IV Decadron >>.Plan to change to PO as outpatient and taper as outpatient Pain around the right eye and headache improved S/P Bronchoscopy:Small Cell Lung Cancer Appreciate Pulmonary help Appreciate Radiation Oncology and Heme Oncology Input Planned to get Chemo Port placed tomorrow Surgery consulted for port placement Hyponatremia: Likely secondary to SIADH Na levels Improved: 130 today Appreciate Nephrology Input DC IV Lasix Continue Fluid Restriction and salt tablets Plan to discharge on 1500cc fluid restriction and salt tabs one po bid; Lasix 20mg daily only if repeat sodium levels drop as outpatient Needs follow up with sodium levels twice a week as outpatient upon discharge. 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 and local infiltration of brachial plexus Pain medication as needed Cervical spine MRI -as above Constipation: continue bowel regimen HLD continue statin DVT Px: SQ Lovenox Disposition: Plan to discharge home tomorrow if stable Vital Signs: Date Time Temp Pulse Resp B/P (MAP) Pulse Ox O2 Delivery O2 Flow Rate FiO2 05/28/17 15:27 36.8 77 18 105/64 (78) 97 Room Air 05/28/17 11:56 36.4 75 18 99/65 (76) 97 Room Air 05/28/17 08:30 Room Air 05/28/17 07:36 36.8 66 18 97/62 (74) 96 05/28/17 03:37 36.8 73 19 96/60 (72) 97 Room Air 05/28/17 01:00 Room Air 05/27/17 22:45 36.4 87 18 111/71 (84) 97 Room Air 05/27/17 19:41 36.9 69 18 102/65 (77) 97 Room Air Lab Results: Results Past 24 Hours Test 05/28/17 06:59 Range/Units White Blood Count 8.38 4.8-10.8 K/uL Red Blood Count 3.74 4.2-5.4 M/uL Hemoglobin 11.8 12.0-16.0 g/dL Hematocrit 33.8 37-47 % Mean Corpuscular Volume 90.4 80-100 fL Mean Corpuscular Hemoglobin 31.6 25-34 pg Mean Corpuscular Hemoglobin Concent 34.9 32-36 g/dl RDW Standard Deviation 43.0 36.4-46.3 fL RDW Coefficient of Variation 13.1 11.5-14.5 % Platelet Count 142 130-400 K/uL Mean Platelet Volume 8.7 7.4-10.4 fL Sodium Level 130 136-145 mmol/L Potassium Level 4.2 3.5-5.1 mmol/L Chloride Level 95 98-107 mmol/L Carbon Dioxide Level 28 21-32 mmol/L Anion Gap 6.0 3-11 mmol/L Blood Urea Nitrogen 18 7-18 mg/dl Creatinine 0.85 0.60-1.20 mg/dl Est Creatinine Clear Calc Drug Dose 82.8 ml/min Estimated GFR () 92.6 Estimated GFR (Non- 79.9 BUN/Creatinine Ratio 21.3 10-20 Random Glucose 96 70-99 mg/dl Calcium Level 8.6 8.5-10.1 mg/dl
--- NOTE | 2017-05-28 17:07 | Hematology/Oncology Prog Note ---
Hematology/Onc Progress Note Date of Service May 28, 2017. 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 Medications Medications Administered Medications (Trade) Dose Ordered Sig/Ayanna Route Start Time Stop Time Status Last Admin Dose Admin Tramadol HCl (Ultram Tab) 50 mg NOW STAT PO 05/22/17 12:02 05/22/17 12:04 DC 05/22/17 12:16 50 MG Morphine Sulfate (MoRPHine SULFATE INJ) 4 mg NOW STAT IV 05/22/17 14:14 05/22/17 14:16 DC 05/22/17 14:55 4 MG Ondansetron HCl (Zofran Inj) 4 mg NOW STAT IV 05/22/17 14:14 05/22/17 14:16 DC 05/22/17 14:57 4 MG Ondansetron HCl (Zofran Inj) 4 mg Q6H PRN IV 05/22/17 15:00 06/21/17 14:59 05/27/17 17:43 4 MG Pravastatin Sodium (Pravachol Tab) 20 mg DAILY PO 05/23/17 08:00 06/22/17 08:59 05/25/17 09:42 20 MG Ketorolac Tromethamine (Toradol Inj) 15 mg Q6H PRN IV. 05/22/17 18:30 05/23/17 09:28 DC 05/23/17 01:37 15 MG Tramadol HCl (Ultram Tab) 50 mg Q4H PRN PO 05/22/17 18:45 05/25/17 20:01 DC 05/25/17 14:39 50 MG Morphine Sulfate (MoRPHine SULFATE INJ) 2 mg Q4H PRN IV 05/22/17 19:00 05/23/17 18:46 DC 05/23/17 13:43 2 MG Furosemide 10 mg/ Syringe 1 ml @ 4 mls/min ONE STAT IV 05/23/17 09:33 05/23/17 10:09 DC 05/23/17 10:06 4 MLS/MIN Furosemide 10 mg/ Syringe 1 ml @ 4 mls/min [id number] IV 05/24/17 07:00 05/25/17 19:44 DC 05/24/17 08:33 4 MLS/MIN Furosemide 10 mg/ Syringe 1 ml @ 4 mls/min ONE ONCE IV 05/23/17 17:00 05/23/17 17:01 DC 05/23/17 17:29 4 MLS/MIN Acetaminophen 100 ml @ 400 mls/hr Q8H PRN IV 05/23/17 10:00 06/22/17 09:59 05/24/17 17:00 400 MLS/HR Dextrose/Sodium Chloride 1,000 ml @ 50 mls/hr Q20H IV 05/23/17 10:30 05/24/17 09:25 DC 05/23/17 10:32 50 MLS/HR Sumatriptan Succinate (Imitrex Sq Inj) 6 mg NOW ONCE SQ 05/23/17 14:45 05/23/17 14:51 DC 05/23/17 15:30 6 MG Sumatriptan Succinate (Imitrex Tab) 50 mg Q8H PRN PO 05/23/17 19:00 06/22/17 18:59 05/24/17 04:52 50 MG Hydromorphone HCl (Dilaudid Inj) 0.5 mg Q4H PRN IV 05/23/17 19:00 06/06/17 18:59 05/28/17 11:30 0.5 MG Cyclobenzaprine HCl (Flexeril Tab) 5 mg TID PRN PO 05/24/17 12:45 06/23/17 12:44 05/25/17 06:22 5 MG Promethazine HCl 25 mg/Sodium Chloride 51 ml @ 204 mls/hr Q6H PRN IV 05/24/17 17:30 06/23/17 17:29 05/24/17 18:27 204 MLS/HR Dexamethasone Sodium Phosphate 4 mg/Syringe 1 ml @ 1 mls/min Q6H IV 05/25/17 00:00 06/24/17 00:00 05/28/17 11:30 1 MLS/MIN Dexamethasone Sodium Phosphate 4 mg/Syringe 1 ml @ 1 mls/min NOW ONCE IV 05/24/17 18:00 05/24/17 18:01 DC 05/24/17 18:25 1 MLS/MIN Sodium Chloride (Sodium Chloride Tab) 1 gm BID17 PO 05/25/17 17:00 06/24/17 16:59 05/28/17 16:18 1 GM Polyethylene (Miralax Powder Packet) 17 gm DAILY PO 05/26/17 08:00 05/27/17 17:45 DC 05/26/17 18:14 17 GM Polyethylene (Miralax Powder Packet) 17 gm 1757 ONCE PO 05/25/17 17:57 05/25/17 18:39 DC 05/25/17 19:31 17 GM Furosemide 20 mg/ Syringe 2 ml @ 4 mls/min ONE ONCE IV 05/25/17 19:45 05/25/17 19:47 DC 05/25/17 20:23 4 MLS/MIN Oxycodone/ Acetaminophen (Percocet 5-325mg Tab) 1 tab Q6H PRN PO 05/25/17 20:00 05/28/17 16:39 DC 05/25/17 20:22 1 TAB Furosemide 20 mg/ Syringe 2 ml @ 4 mls/min DAILY@0800 IV 05/26/17 16:30 05/28/17 08:49 DC 05/28/17 08:36 4 MLS/MIN Menthol (Nice Elsa) 24 elsa STK-MED ONCE .ROUTE 05/26/17 20:21 05/26/17 20:22 DC 05/26/17 20:24 24 ELSA Polyethylene (Miralax Powder Packet) 17 gm DAILY PRN PO 05/28/17 08:00 06/25/17 07:59 05/28/17 03:57 17 GM Docusate Sodium (coLACE CAP) 100 mg BID PO 05/27/17 20:00 06/26/17 19:59 05/28/17 08:36 100 MG Senna/Docusate Sodium (Senokot S Tab) 1 tab NOW ONCE PO 05/28/17 16:45 05/28/17 16:46 DC 05/28/17 16:55 1 TAB Subjective Ms. Sanchez did well with her first fraction of RT this morning. She continues to have pain, which is not optimally controlled with her current Percocet. She otherwise feels great and is very highly motivated to start treatment. Review of Systems: Constitutional: No fever, No weakness, No fatigue Eyes: No worsening of vision Respiratory: No cough, No shortness of breath Cardiovascular: No chest pain Abdomen: No pain Musculoskeletal: + joint pain Neurologic: No paralysis, No weakness Vital Signs Vital Signs Past 12 Hours Date Time Temp Pulse Resp B/P (MAP) Pulse Ox O2 Delivery O2 Flow Rate FiO2 12/20/17 15:27 36.8 77 18 105/64 (78) 97 Room Air 05/28/17 11:56 36.4 75 18 99/65 (76) 97 Room Air 05/28/17 08:30 Room Air 05/28/17 07:36 36.8 66 18 97/62 (74) 96 Physical Exam Constitutional: General Apperance: heathly-appearing Level of Distress: NAD Psychiatric: Mental Status: active & alert Orientation: oriented except where noted Lungs: Auscuitation: breath sounds normal Cardiovascular: Heart Auscultation: RRR Abdomen: Inspection & Palpation: soft, no tenderness, guarding & rebound Extremities: no edema Laboratory Last 24 Hours Test 05/28/17 06:59 White Blood Count 8.38 K/uL Red Blood Count 3.74 M/uL Hemoglobin 11.8 g/dL Hematocrit 33.8 % Mean Corpuscular Volume 90.4 fL Mean Corpuscular Hemoglobin 31.6 pg Mean Corpuscular Hemoglobin Concent 34.9 g/dl RDW Standard Deviation 43.0 fL RDW Coefficient of Variation 13.1 % Platelet Count 142 K/uL Mean Platelet Volume 8.7 fL Sodium Level 130 mmol/L Potassium Level 4.2 mmol/L Chloride Level 95 mmol/L Carbon Dioxide Level 28 mmol/L Anion Gap 6.0 mmol/L Blood Urea Nitrogen 18 mg/dl Creatinine 0.85 mg/dl Est Creatinine Clear Calc Drug Dose 82.8 ml/min Estimated GFR () 92.6 Estimated GFR (Non- 79.9 BUN/Creatinine Ratio 21.3 Random Glucose 96 mg/dl Calcium Level 8.6 mg/dl Assessment & Plan Ms. Sanchez will proceed with her whole brain RT, which should finish around . I will plan for her to come to my office to start chemotherapy the following week. It would be optimal if we could arrange for a chemo port placement prior to her discharge. She also might benefit from an increase in her opiates, either to oxycodone (without tylenol) 10 mg PRN or morphine IR 15 mg PRN. I can manage her opiates once she is out of the hospital. I will make arrangements for her follow up with me and she should hear from my office tomorrow or later this week.
--- NOTE | 2017-05-28 17:10 | Surgery Consultation ---
Consultation Date of Consultation: May 28, 2017. Attending Physician: Jac Florez MD History of Present Illness Chief Complaint: Right upper arm pain. History of Present Illness: Ms. Sanchez is a 51-year-old white female who ambulates into the ED accompanied by her complaining of right upper humeral pain. Historically patient reports on Friday she was seen by her primary care provider, Dr. Humphries, and was diagnosed with a right suprahilar are focal area of consolidation. She was diagnosed with pneumonia and started on prednisone, albuterol and ciprofloxacin. She reports she has taken one dose of the Cipro and prednisone but has not used her inhaler. Patient reports last night approximately 12 hours before she arrived in the emergency department she developed right upper humeral pain. She reports since that time her pain has been constant but has waxed and waned in intensity. She describes her pain as a cramping sensation. Currently she rates her discomfort 3/10 but does report its been incised 10/10. Intermittently the pain does radiate down towards the elbow, into the forearm and the posterior hand. She has not identified any aggravating or alleviating factors related to the pain. She reports she has tried BenGay, and unspecified Lutheran ointment, ice and heat without relief. She denies any associated symptoms including fevers, chills, sweats, skin eruptions, skin color changes, recent direct or repetitive trauma, neck pain, thoracic back pain, chest pain, shortness of breath, hemoptysis, previous clots, claudication, cramping, recent surgery/inactivity/extended travel, abdominal pain, nausea, vomiting, extremity weakness/numbness/tingling. Review of Systems: As noted above in history of present illness. All body systems were reviewed and found to be negative as noted above. Past Medical History: As previously noted, status post section and right breast lumpectomy. Current Medications: As previously noted and aspirin and Pravachol Allergies to Medications: Patient denies. Social History: Patient is not employed; she lives with her and feels safe in her home environment; she denies tobacco and alcohol use. I got a call for consult port placement for chemo, pt is new Dx right lung cancer, I reviewed pt's H/P with pt and her , Family History Diabetes mellitus MOTHER FH: CAD (coronary artery disease) FATHER BROTHER Social History Smoking Status: Former Smoker Smokeless Tobacco Use: No Alcohol Use: none Drug Use: none Marital Status: Housing Status: lives with family Allergies Coded Allergies: No Known Allergies (Unverified , 05/22/17) Home Medications Scheduled Aspirin (Aspirin Ec), 81 MG PO DAILY Ciprofloxacin Hcl (Cipro), 500 MG PO BID Pravastatin (Pravachol ), 20 MG PO DAILY Prednisone (Prednisone), 0 PO UD Scheduled PRN Albuterol Hfa (Ventolin Hfa), 1 PUFFS INH TID PRN for SOB/Wheezing Current Inpatient Medications Current Inpatient Medications Medications (Trade) Dose Ordered Sig/Ayanna Route Start Time Stop Time Status Last Admin Dose Admin Acetaminophen (Tylenol Tab) 650 mg Q4H PRN PO 05/22/17 15:00 06/21/17 14:59 Ondansetron HCl (Zofran Inj) 4 mg Q6H PRN IV 05/22/17 15:00 06/21/17 14:59 05/27/17 17:43 4 MG Pravastatin Sodium (Pravachol Tab) 20 mg DAILY PO 05/23/17 08:00 06/22/17 08:59 05/25/17 09:42 20 MG Acetaminophen 100 ml @ 400 mls/hr Q8H PRN IV 05/23/17 10:00 06/22/17 09:59 05/24/17 17:00 400 MLS/HR Sumatriptan Succinate (Imitrex Tab) 50 mg Q8H PRN PO 05/23/17 19:00 06/22/17 18:59 05/24/17 04:52 50 MG Hydromorphone HCl (Dilaudid Inj) 0.5 mg Q4H PRN IV 05/23/17 19:00 06/06/17 18:59 05/28/17 11:30 0.5 MG Cyclobenzaprine HCl (Flexeril Tab) 5 mg TID PRN PO 05/24/17 12:45 06/23/17 12:44 05/25/17 06:22 5 MG Promethazine HCl 25 mg/Sodium Chloride 51 ml @ 204 mls/hr Q6H PRN IV 05/24/17 17:30 06/23/17 17:29 05/24/17 18:27 204 MLS/HR Dexamethasone Sodium Phosphate 4 mg/Syringe 1 ml @ 1 mls/min Q6H IV 05/25/17 00:00 06/24/17 00:00 05/28/17 11:30 1 MLS/MIN Sodium Chloride (Sodium Chloride Tab) 1 gm BID17 PO 05/25/17 17:00 06/24/17 16:59 05/28/17 16:18 1 GM Polyethylene (Miralax Powder Packet) 17 gm DAILY PRN PO 05/28/17 08:00 06/25/17 07:59 05/28/17 03:57 17 GM Docusate Sodium (coLACE CAP) 100 mg BID PO 05/27/17 20:00 06/26/17 19:59 05/28/17 08:36 100 MG Oxycodone HCl (Roxicodone Immediate Rel Tab) 5 mg Q4H PRN PO 05/28/17 16:45 06/11/17 16:44 Oxycodone HCl (Oxycontin Tab) 10 mg Q12 PO 05/28/17 21:00 06/11/17 20:59 Review of Systems Constitutional: No fever, No chills, No sweats, No weight loss, No weakness, No fatigue, No problem reported Eyes: No worsening of vision, No eye pain, No redness, No discharge, No diplopia, No problem reported ENT: No hearing loss, No unusual epistaxis, No nasal symptoms, No sore throat, No tinnitus, No dental problems, No trouble swallowing, No problem reported Respiratory: No cough, No sputum, No wheezing, No shortness of breath, No dyspnea on exertion, No dyspnea at rest, No hemoptysis, No problem reported Cardiovascular: No chest pain, No orthopnea, No PND, No edema, No claudication , No palpitations, No problem reported Abdomen: No pain, No nausea, No vomiting, No diarrhea, No constipation, No GI bleeding, No problem reported Musculoskeletal: No joint pain, No muscle pain, No swelling, No calf pain, No problem reported Neurologic: No memory loss, No paralysis, No weakness, No numbness/tingling, No vertigo, No balance problems, No problem reported Psychiatric: No depression symptoms, No anhedonism, No anxiety, No insomnia, No substance abuse, No problem reported Endocrine: No fatigue, No excessive thirst, No excessive urination, No problem reported Hematologic / Lymphatic: No abnormal bleeding/bruising, No clotting problems, No swollen lymph nodes, No night sweats, No problem reported Physical Exam Date Time Temp Pulse Resp B/P (MAP) Pulse Ox O2 Delivery O2 Flow Rate FiO2 05/28/17 15:27 36.8 77 18 105/64 (78) 97 Room Air 05/28/17 11:56 36.4 75 18 99/65 (76) 97 Room Air 05/28/17 08:30 Room Air 05/28/17 07:36 36.8 66 18 97/62 (74) 96 05/28/17 03:37 36.8 73 19 96/60 (72) 97 Room Air 05/28/17 01:00 Room Air 05/27/17 22:45 36.4 87 18 111/71 (84) 97 Room Air 05/27/17 19:41 36.9 69 18 102/65 (77) 97 Room Air General Appearance: WD/WN, no apparent distress Head: normocephalic Eyes: normal inspection ENT: normal ENT inspection Neck: supple, no JVD Respiratory/Chest: chest non-tender, lungs clear Cardiovascular: regular rate, rhythm, no edema, no gallop, no JVD, no murmur Abdomen/GI: normal bowel sounds, non tender, soft, no organomegaly Extremities/Musculoskelatal: normal inspection, no calf tenderness, normal capillary refill Neurologic/Psych: no motor/sensory deficits, alert, normal mood/affect Skin: normal color, warm/dry, no rash Laboratory Results Last 24 Hours Test 05/28/17 06:59 White Blood Count 8.38 K/uL Red Blood Count 3.74 M/uL Hemoglobin 11.8 g/dL Hematocrit 33.8 % Mean Corpuscular Volume 90.4 fL Mean Corpuscular Hemoglobin 31.6 pg Mean Corpuscular Hemoglobin Concent 34.9 g/dl RDW Standard Deviation 43.0 fL RDW Coefficient of Variation 13.1 % Platelet Count 142 K/uL Mean Platelet Volume 8.7 fL Sodium Level 130 mmol/L Potassium Level 4.2 mmol/L Chloride Level 95 mmol/L Carbon Dioxide Level 28 mmol/L Anion Gap 6.0 mmol/L Blood Urea Nitrogen 18 mg/dl Creatinine 0.85 mg/dl Est Creatinine Clear Calc Drug Dose 82.8 ml/min Estimated GFR () 92.6 Estimated GFR (Non- 79.9 BUN/Creatinine Ratio 21.3 Random Glucose 96 mg/dl Calcium Level 8.6 mg/dl Assessment & Plan chest CT scan- IMPRESSION: 1. Right upper lobe mass measuring 4.3 cm. 2. Mass continues to involve the right hilum as well as mid mediastinum with dimensions of keisha and hilar/mediastinal pathology measuring from 2.5 to 6.3 cm. 3. Mass compromises the right hilar arterial vasculature as well as upper lobe right mainstem bronchus. 4. Additional nodular density right lung base as well as right paravertebral region at T4-T5. 6. Hepatic metastatic disease. 7. Neoplastic process is the diagnosis of exclusion. Brain MRI- IMPRESSION: 1. Multiple enhancing lesions within the brain consistent with metastatic disease. 2. The dominant 2.8 x 2.0 x 1.7 cm lesion is located at the sellar/suprasellar location. This results in mild mass effect along the third ventricle and optic chiasm. The ventricles are normal in size at this time without evidence for hydrocephalus. 3. Subcentimeter clival lesion likely represents metastatic disease. Assessment: pt is a 51 yo female with new Dx lung cancer with metastatic disease , pt needs port placement for chemo, Plan, pt will have port placement tomorrow, D/W benefits, risks and alternatives of the procedure, the risks - infection, bleeding, injury lung, blood clot, pt and her understood, they agree with the surgery, I answered all questions, NPO from [place]
[2017-05-28] MEDS: OXYCODONE HCL IR 5 MG TAB (IMMEDIATE RELEASE) PO PRN (18:03)
[2017-05-28 19:25] VITALS: BP 112/75; PULSE 78; TEMP 36.3; O2SAT 97
[2017-05-28] MEDS ORDERED: SOD PHOSPHATE/SOD BIPHOSPHATE ENEMA 132 ML BTL PR PRN (20:45)
[2017-05-28] MEDS ORDERED: BISACODYL 10 MG SUPP PR PRN (20:45)
[2017-05-28] MEDS: OXYCODONE HCL 10 MG TABCR (OXYCONTIN) PO SCH (21:07)
[2017-05-28 23:29] VITALS: BP 108/67; PULSE 66; TEMP 36.9; O2SAT 96
[2017-05-29 04:22] VITALS: BP 111/72; PULSE 69; TEMP 36.9; O2SAT 96
[2017-05-29] MEDS ORDERED: CEFAZOLIN SOD 2000MG/15 ML IV PUSH IV SCH (06:00)
[2017-05-29] MEDS: DEXAMETHASONE INJ 4 MG in SYRINGE 0 ML IV SCH ×2 (06:02→12:48)
[2017-05-29 07:07] VITALS: BP 113/70; PULSE 79; TEMP 36.8; O2SAT 97
[2017-05-29 07:12] LABS: CALCIUM 8.8 mg/dl (8.5-10.1); CREATININE 0.92 mg/dl (0.60-1.20); POTASSIUM 4.1 mmol/L (3.5-5.1)
[2017-05-29] MEDS: SODIUM CHLORIDE 1 GM TAB PO SCH (07:45)
[2017-05-29] MEDS: OXYCODONE HCL 10 MG TABCR (OXYCONTIN) PO SCH (07:45)
[2017-05-29 08:00] VITALS: O2SAT 97
[2017-05-29] MEDS: PRAVASTATIN SOD 20 MG TAB PO SCH (08:00)
[2017-05-29] MEDS ORDERED: DOCUSATE SODIUM/SENNA 50/8.6MG TAB PO SCH (08:00)
[2017-05-29] MEDS ORDERED: PROPOFOL IV EMULSION 10 MG/ML 20 ML VIAL IV ONE (08:21)
[2017-05-29] MEDS ORDERED: LIDOCAINE HCL 2% 2 ML VIAL (20MG/ML) ONE (08:21)
[2017-05-29] MEDS ORDERED: MIDAZOLAM HCL 1 MG/ML 2ML VIAL ONE ×2 (08:22→09:29)
[2017-05-29] MEDS ORDERED: FENTANYL CITRATE INJ 50 MCG/1 ML 2 ML VIAL ONE (08:22)
[2017-05-29] MEDS ORDERED: EpHEDrine SULFATE INJ 50 MG/ML AMP IV PRN (08:45)
[2017-05-29] MEDS ORDERED: ONDANSETRON INJ 2 MG/ML 2 ML VIAL IV PRN (08:45)
[2017-05-29] MEDS ORDERED: HYDROmorphone INJ 1 MG/ML SYR IV PRN (08:45)
[2017-05-29] MEDS ORDERED: FENTANYL CITRATE INJ 50 MCG/1 ML 2 ML VIAL IV PRN (08:45)
[2017-05-29] MEDS ORDERED: PROMETHAZINE HCL INJ 12.5 MG in SODIUM CHLORIDE 0.9% 50ML 50 ML IV PRN (08:45)
[2017-05-29] MEDS ORDERED: ATROPINE SULFATE 0.1 MG/ML 5ML SYR IV PRN (08:45)
[2017-05-29] MEDS ORDERED: CEFAZOLIN SOD 2000MG/15 ML IV PUSH IV ONE (08:51)
[2017-05-29] MEDS ORDERED: NURSING VERBAL MED ORDER STA (08:53)
[2017-05-29] MEDS ORDERED: BUPIVACAINE 0.5 % 5 MG/1 ML MPF 30ML VIAL ONE (08:58)
[2017-05-29] MEDS ORDERED: LIDOCAINE HCL 1% 20 ML VIAL ONE (08:58)
[2017-05-29] MEDS ORDERED: BACITRACIN OINT 15 GM TUBE ONE (08:58)
--- NOTE | 2017-05-29 10:20 | [facility] Post Operative Brief Note ---
Immediate Operative Summary Operative Date May 29, 2017. Pre-Operative Diagnosis Right lung cancer with metastatic disease Post-Operative Diagnosis Right lung cancer with metastatic disease Procedure(s) Performed A-Port Insertion Right Internal Jugular vein Surgeon Dr. Valdez Athletic Instructor Surgeon(s) Shaina Arellano PA-C Estimated Blood Loss 5 mL Findings patent right internal jugular vein Fluids (cc crystalloids) 600ml Specimens None per surgeon Drains none Anesthesia sedation + local Complication(s) None Disposition Recovery Room / PACU
--- NOTE | 2017-05-29 10:41 | Anesthesiology Progress Note ---
Anesthesia Post Op Note Date & Time May 29, 2017 at 10:41 Vital Signs Pain Intensity: 0 Vital Signs Past 12 Hours Date Time Temp Pulse Resp B/P (MAP) Pulse Ox O2 Delivery O2 Flow Rate FiO2 05/29/17 10:30 36.3 58 16 104/65 95 Room Air 05/29/17 10:20 67 16 99/64 95 Room Air 05/29/17 10:11 36.5 65 16 97/55 97 Oxymask 7 05/29/17 08:00 97 Room Air 05/29/17 07:07 36.8 79 18 113/70 (84) 97 Room Air 05/29/17 04:22 36.9 69 20 111/72 (85) 96 Room Air 05/29/17 00:30 Room Air 05/28/17 23:29 36.9 66 18 108/67 (81) 96 Room Air Notes Mental Status: alert / awake / arousable, participated in evaluation Pt Amnestic to Procedure: Yes Nausea / Vomiting: adequately controlled Pain: adequately controlled Airway Patency, RR, SpO2: stable & adequate BP & HR: stable & adequate Hydration State: stable & adequate Anesthetic Complications: no major complications apparent
--- NOTE | 2017-05-29 11:11 | DIAGNOSTIC IMAGING REPORT ---
CHEST ONE VIEW PORTABLE CLINICAL HISTORY: Status post a port placement. COMPARISON STUDY: Chest CT May 22, 2017. FINDINGS: There has been interval placement of a right internal jugular [id number]. Catheter tip projects over the mid SVC. There is no pneumothorax. Mediastinal contours are stable. Specifically, right mediastinal and right hilar fullness is unchanged and due to lymphadenopathy shown on CT of May 22, 2017. A right upper lobe mass is again noted. There is no evidence for pulmonary edema. Cardiac size is normal. IMPRESSION: 1. No pneumothorax following placement of a right internal jugular [id number]. Catheter tip projects over mid SVC. 2. Redemonstration of mediastinal and right hilar adenopathy as well as the right upper lobe mass better shown on chest CT May 22, 2017. Electronically signed by: Krishan Estevez M.D. 05/29/2017 11:10 AM Dictated Date/Time: 05/29/2017 11:08 AM
--- NOTE | 2017-05-29 11:34 | OPERATIVE REPORT ---
DATE OF OPERATION: 05/29/2017 PREOPERATIVE DIAGNOSES: Lung cancer in need of port insertion. POSTOPERATIVE DIAGNOSIS: Same. PROCEDURE: Rodriguez insertion, right internal jugular vein. SURGEON: Dr. Phil Valdez. WEIGHT LOSS CONSULTANT: Shaina Arellano PA-C. ANESTHESIA: Conscious sedation plus local. ESTIMATED BLOOD LOSS: About 5 mL. FINDINGS: 600 cc. COMPLICATIONS: None. INDICATIONS FOR THE PROCEDURE: This is a 51-year-old female who had a new diagnosis lung cancer. The patient in need of port insertion for the chemotherapy. I did talk to the patient about the benefit and risk, alternate procedure. I indicated the risks may include but not limited such as bleeding, infection, injury to the lung, blood clot, dysfunction catheter. The patient understands. She signed informed consent. She agreed to proceed with the procedure and I answered all questions. DETAILS OF PROCEDURE: We brought the patient to the OR, put the patient in the supine position. The patient received SCD on bilateral legs to prevent DVT. Also, the patient received 2 grams Ancef IV for prophylactic antibiotic. The patient received conscious sedation by the anesthesiology. The patient's right side of neck and right side upper chest was prepped and draped in routine sterile fashion. After time out, we put the patient in Trendelenburg position and I used the ultrasound guide then used 16 gauge needle to puncture the right internal jugular vein, easily blood returned. We passed the wire over the needle, removed the needle. Then I used fluoro to confirm the wire located in the superior vena cava. Then we injected the local on the right upper chest to make about 3 cm incision on the right upper chest to create pouch for the port. Hemostasis was obtained. Then we sized the catheter from the right upper chest through the neck. Then, we used dilator sheath and passed the wire. The wire was removed and with the dilator removed and leaving the sheath in then we passed the [id number] through the sheath. Then we removed the sheath and we used fluoroscopy again confirm the tip of the catheter located at the junction between the superior vena cava and the right atrium. Then we used 2-0 Prolene to fix the port at 3 point on the chest wall. Then we used 2-0 Vicryl to close subcutaneous layer continuous running, used 4-0 Vicryl to close the skin. We put the dressing on. The patient tolerated the procedure well. All the instrument, needle and sponge count correct x2 at the end of case. The patient transferred to recovery room in stable condition. I attest to the content of the Intraoperative Record and any orders documented therein. Any exceptions are noted below. MTDD
[2017-05-29 13:35] VITALS: BP 100/74; PULSE 68; TEMP 36.3; O2SAT 96
--- NOTE | 2017-05-29 13:43 | Discharge Instructions ---
Discharge Instructions Date of Service May 29, 2017. Admission Reason for Admission: Hyponatremia Discharge Discharge Diagnosis / Problem: Small cell lung cancer Discharge Goals Goal(s): Decrease discomfort, Improve function Activity Recommendations Activity Limitations: as noted below No heavy lifting over 10 pounds for 1 week Try not to lift right arm above head for the first week post op No submerging incisions underwater for 2 weeks (no bathing, swimming, or hot tubs) No driving until you are pain free . Instructions / Follow-Up Instructions / Follow-Up Keep incision covered for 4 days and then you may shower, wash hair and sponge bath in meantime Keep port covered with dressing daily to prevent infection If they plan to use your port next week they may take the steri strips off Current Hospital Diet Patient's current hospital diet: Regular Diet Discharge Diet Recommended Diet: Regular Diet Procedures Procedures Performed: A-Port Insertion Right Internal Jugular vein Pending Studies Studies pending at discharge: no Medical Emergencies . Who to Call and When: Medical Emergencies: If at any time you feel your situation is an emergency, please call 911 immediately. . Non-Emergent Contact Non-Emergency issues call your: Primary Care Provider, Surgeon Call Non-Emergent contact if: you have a fever, temperature is above 101, your pain is not controlled, your pain is worsening, your pain is unusual for you, wound has increased drainage, wound has increased redness, wound has increased pain . "Provider Documentation" section prepared by Shaina Arellano. . VTE Core Measure Inpt VTE Proph given/why not?: SCD's
--- NOTE | 2017-05-29 14:28 | Progress Note ---
Internal Med Progress Note Date of Service: May 29, 2017. Provider Documentation: SUBJECTIVE: Seen and examined at bedside Got radiation therapy and port placement today Feels well No BM yet, Eager to get discharged, Refused Enema Denies chest pain, SOB, dizziness Family at bedside No other complaints OBJECTIVE: Vital Signs-as noted below Physical Exam: General Appearance:Moderately built and nourished, no apparent distress Head: normocephalic, Atraumatic Eyes: normal inspection, EOMI, PERRL Neck: supple, Trachea midline Respiratory/Chest: Normal breath sounds, CTA Cardiovascular: S1, S2, No murmur Abdomen/GI:Soft, Non tender, Bowel sounds present Extremities/Musculoskelatal:normal inspection, no edema Neurologic/Psych:AAOX3, grossly no focal neurological deficits Skin: normal color, warm Lab data as noted below. ASSESSMENT & PLAN: Metastatic Small Cell Carcinoma of the Lung: MRI of the Head::1. Multiple enhancing lesions within the brain consistent with metastatic disease. 2. The dominant 2.8 x 2.0 x 1.7 cm lesion is located at the sellar/suprasellar location. This results in mild mass effect along the third ventricle and optic chiasm. The ventricles are normal in size at this time without evidence for hydrocephalus. 3. Subcentimeter clival lesion likely represents metastatic disease. MRI of the Cervical Spine::1. Multiple metastatic lesions seen scattered throughout the cervical and thoracic spine. 2. No significant central canal narrowing within the cervical spine. No evidence for epidural involvement of metastatic disease at this time within the cervical spine. 3. However, there is right-sided paraspinal extension of the T3 lesion as described above. This extends into the right T2-T3 and T3-T4 neural foramen resulting in neural foraminal narrowing. This also extends into the right epidural space at T3. However, there is no significant neural foraminal narrowing at this time. 4. No fracture or subluxation within the cervical spine. MRI of the Lumbar Spine::1. Extensive osseous metastatic disease seen throughout the lumbar spine and sacrum. 2. There is 4 mm of epidural involvement at the L1 level. However, there is no significant central canal narrowing at this level. 3. No fractures within the lumbar spine. 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 and local infiltration of brachial plexus Pain medication as needed Cervical spine MRI -as above Constipation: continue bowel regimen HLD continue statin DVT Px: SQ Lovenox Disposition: Plan to discharge home today Follow up with your Primary Care Physician in 1 week Follow up with Dr.Veeral Henao for Radiation therapy as advised Follow up with your Oncologist for chemotherapy as advised Get Blood test(BMP) twice a week and follow up with your Adoption Counselor with results as advised Seek immediate medical attention if your symptoms reoccur or worsen Vital Signs: Date Time Temp Pulse Resp B/P (MAP) Pulse Ox O2 Delivery O2 Flow Rate FiO2 05/29/17 13:35 36.3 68 16 96 Room Air 05/29/17 11:00 36.3 68 16 100/74 96 Room Air 05/29/17 10:45 36.3 60 16 99/68 96 Room Air 05/29/17 10:30 36.3 58 16 104/65 95 Room Air 05/29/17 10:20 67 16 99/64 95 Room Air 05/29/17 10:11 36.5 65 16 97/55 97 Oxymask 7 05/29/17 08:00 97 Room Air 05/29/17 07:07 36.8 79 18 113/70 (84) 97 Room Air 05/29/17 04:22 36.9 69 20 111/72 (85) 96 Room Air 05/29/17 00:30 Room Air 05/28/17 23:29 36.9 66 18 108/67 (81) 96 Room Air 05/28/17 19:25 36.3 78 18 112/75 (87) 97 Room Air 05/28/17 16:20 Room Air 05/28/17 15:27 36.8 77 18 105/64 (78) 97 Room Air Lab Results: Results Past 24 Hours Test 05/29/17 06:06 Range/Units Sodium Level 129 136-145 mmol/L Potassium Level 4.1 3.5-5.1 mmol/L Chloride Level 95 98-107 mmol/L Carbon Dioxide Level 28 21-32 mmol/L Anion Gap 6.0 3-11 mmol/L Blood Urea Nitrogen 18 7-18 mg/dl Creatinine 0.92 0.60-1.20 mg/dl Est Creatinine Clear Calc Drug Dose 76.5 ml/min Estimated GFR () 84.1 Estimated GFR (Non- 72.6 BUN/Creatinine Ratio 19.1 10-20 Random Glucose 99 70-99 mg/dl Calcium Level 8.8 8.5-10.1 mg/dl
[2017-05-29] MEDS ORDERED: MRLP17X PO (14:39)
[2017-05-29] MEDS ORDERED: OXYSR10 PO (14:39)
[2017-05-29] MEDS ORDERED: ONDA4TAB65 PO (14:39)
[2017-05-29] MEDS ORDERED: RXC5 PO (14:39)
[2017-05-29] MEDS ORDERED: SENN8.6T7 PO (14:39)
[2017-05-29] MEDS ORDERED: SDMC1 PO (14:39)
[2017-05-29] MEDS ORDERED: FLX5 PO (14:39)
[2017-05-29] MEDS ORDERED: DXM/4 PO (14:39)
--- NOTE | 2017-05-29 14:42 | Discharge Summary ---
Discharge Summary Date of Service May 29, 2017. Discharge Summary Admission Date: May 22, 2017 at 14:54 Discharge Date: May 29, 2017 Discharge Disposition: Home Principal Diagnosis: Metastatic Small Cell Carcinoma of the Lung, Hyponatremia Procedures: R shoulder X ray: 1. No acute process of the right shoulder. 2. Potential enlargement right hilum with CT of the chest recommended to exclude nodular or hilar pathology. CT chest: 1. Right upper lobe mass measuring 4.3 cm. 2. Mass continues to involve the right hilum as well as mid mediastinum with dimensions of keisha and hilar/mediastinal pathology measuring from 2.5 to 6.3 cm. 3. Mass compromises the right hilar arterial vasculature as well as upper lobe right mainstem bronchus. 4. Additional nodular density right lung base as well as right paravertebral region at T4-T5. 6. Hepatic metastatic disease. 7. Neoplastic process is the diagnosis of exclusion. MRI C-spine: 1. Multiple metastatic lesions seen scattered throughout the cervical and thoracic spine. 2. No significant central canal narrowing within the cervical spine. No evidence for epidural involvement of metastatic disease at this time within the cervical spine. 3. However, there is right-sided paraspinal extension of the T3 lesion as described above. This extends into the right T2-T3 and T3-T4 neural foramen resulting in neural foraminal narrowing. This also extends into the right epidural space at T3. However, there is no significant neural foraminal narrowing at this time. 4. No fracture or subluxation within the cervical spine. Brain MRI: 1. Multiple enhancing lesions within the brain consistent with metastatic disease. 2. The dominant 2.8 x 2.0 x 1.7 cm lesion is located at the sellar/suprasellar location. This results in mild mass effect along the third ventricle and optic chiasm. The ventricles are normal in size at this time without evidence for hydrocephalus. 3. Subcentimeter clival lesion likely represents metastatic disease. MRI L-spine: 1. Extensive osseous metastatic disease seen throughout the lumbar spine and sacrum. 2. There is 4 mm of epidural involvement at the L1 level. However, there is no significant central canal narrowing at this level. 3. No fractures within the lumbar spine. Venous Doppler: No evidence of deep venous thrombosis. Consultations: Oncology, Radiation oncology, Nephrology Pending Studies/Follow-Up: Follow up with your Primary Care Physician in 1 week Follow up with Dr.Veeral Henao for Radiation therapy as advised Follow up with your Oncologist for chemotherapy as advised Get Blood test(BMP) twice a week and follow up with your Farm Machinery Set Up Mechanic with results as advised Seek immediate medical attention if your symptoms reoccur or worsen Medication Reconciliation New Medications: Dexamethasone (Decadron) 4 Mg Tab 4 TAB PO Q6H for 15 Days, #60 TAB Ondansetron Hcl (Zofran) 4 Mg Tab 4 MG PO PRN PRN for q6h for 15 Days, #30 TAB Cyclobenzaprine HCl (Cyclobenzaprine HCl) 5 Mg Tab 5 MG PO TID PRN for BACK PAIN for 10 Days, #30 TAB Oxycodone HCl (Oxycontin) 10 Mg Tabcr 10 MG PO Q12 for 15 Days, #30 Oxycodone HCl (Oxycodone HCl) 5 Mg Tab 5 MG PO Q4H PRN for Pain for 15 Days, #60 TAB Polyethylene (Miralax) 17 Gm Pow 17 GM PO BID PRN for Constipation for 15 Days, #30 EA Sennosides-Docusate Sodium (Senokot S) 1 Tab Tab 2 TAB PO BID for 15 Days, #30 TAB Sodium Chloride (Sodium Chloride) 1 Gm Tab 1 GM PO BID17 for 15 Days, #30 TAB Continued Medications: Albuterol Hfa (Ventolin Hfa) 200 Puffs/78872 Mcg Aers 1 PUFFS INH TID PRN for SOB/Wheezing, INHALER Aspirin (Aspirin Ec) 81 Mg Tab 81 MG PO DAILY Pravastatin (Pravachol ) 20 Mg Tab 20 MG PO DAILY, TAB Discontinued Medications: Ciprofloxacin Hcl (Cipro) 500 Mg Tab 500 MG PO BID, TAB STARTED 05/21/17 Prednisone (Prednisone) 10 Mg Tab 0 PO UD, PKT STERAPRED 10MG 12 DAY STARTED 05/21/17 Admission Information HPI (per Admitting provider): 51 year old female who presents to the ED with right arm pain. About 3 weeks ago patient reports she had an episode of nausea and vomiting. She reports that since that time, she has had shortness of breath with exertion. 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 She was noted to be wheezing on exam and was referred to her PCP. She was started on Cipro and Prednisone for a suspected pneumonia. Patient reports that after one day of taking these medicines her pulmonary symptoms resolved. She reports that last night she developed right upper arm pain. Pain was moderate in intensity, keeping her up most of the night. She tried heat, ice, and Bengay; none of which helped. She called her PCPs office today who referred her to the ED for further evaluation. Patient denies cough and sputum production. No fevers or chills. Reports a good appetite and denies unintentional weight loss. No further GI complaints aside from the aforementioned. She denies chest pain. No lightheadedness, dizziness, diaphoresis, or syncopal events. No urinary symptoms. In the ED, patient had a CT chest that showed right upper lobe mass measuring 4.3 cm. Labs show hyponatremia with sodium 120. Patient is hemodynamically stable. Physical Exam (per Admitting): General Appearance: WD/WN, no apparent distress Head: normocephalic, atraumatic Eyes: normal inspection, EOMI, sclerae normal ENT: hearing grossly normal, + pertinent finding (mucous membranes moist) Neck: supple, no JVD, trachea midline Respiratory/Chest: lungs clear, normal breath sounds, no respiratory distress Cardiovascular: regular rate, rhythm, no edema, normal peripheral pulses Abdomen/GI: normal bowel sounds, non tender, soft, no organomegaly Extremities/Musculoskelatal: normal inspection, no calf tenderness, normal capillary refill Neurologic/Psych: no motor/sensory deficits, alert, normal mood/affect, oriented x 3 Skin: normal color, warm/dry Hospital Course Metastatic Small Cell Carcinoma of the Lung: MRI of the Head::1. Multiple enhancing lesions within the brain consistent with metastatic disease. 2. The dominant 2.8 x 2.0 x 1.7 cm lesion is located at the sellar/suprasellar location. This results in mild mass effect along the third ventricle and optic chiasm. The ventricles are normal in size at this time without evidence for hydrocephalus. 3. Subcentimeter clival lesion likely represents metastatic disease. MRI of the Cervical Spine::1. Multiple metastatic lesions seen scattered throughout the cervical and thoracic spine. 2. No significant central canal narrowing within the cervical spine. No evidence for epidural involvement of metastatic disease at this time within the cervical spine. 3. However, there is right-sided paraspinal extension of the T3 lesion as described above. This extends into the right T2-T3 and T3-T4 neural foramen resulting in neural foraminal narrowing. This also extends into the right epidural space at T3. However, there is no significant neural foraminal narrowing at this time. 4. No fracture or subluxation within the cervical spine. MRI of the Lumbar Spine::1. Extensive osseous metastatic disease seen throughout the lumbar spine and sacrum. 2. There is 4 mm of epidural involvement at the L1 level. However, there is no significant central canal narrowing at this level. 3. No fractures within the lumbar spine. 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 and local infiltration of brachial plexus Pain medication as needed Cervical spine MRI -as above Constipation: continue bowel regimen HLD continue statin DVT Px: SQ Lovenox Disposition: Plan to discharge home today Follow up with your Primary Care Physician in 1 week Follow up with Dr.Veeral Henao for Radiation therapy as advised Follow up with your Oncologist for chemotherapy as advised Get Blood test(BMP) twice a week and follow up with your Farm Machinery Set Up Mechanic with results as advised Seek immediate medical attention if your symptoms reoccur or worsen Total time spent on discharge = 35 minutes This includes examination of the patient, discharge planning, medication reconciliation, and communication with other providers. Discharge Instructions Discharge Instructions Date of Service May 29, 2017. Admission Reason for Admission: Hyponatremia Discharge Discharge Diagnosis / Problem: Metastatic Small Cell Carcinoma of the Lung, Hyponatremia Discharge Goals Goal(s): Decrease discomfort, Improve function Activity Recommendations Activity Limitations: per Instructions/Follow-up section Lifting Limitations: gradually increase as tolerated Exercise/Sports Limitations: gradually increase as tolerated . Instructions / Follow-Up Instructions / Follow-Up Follow up with your Primary Care Physician in 1 week Follow up with Dr.Veeral Henao for Radiation therapy as advised Follow up with your Oncologist for chemotherapy as advised Get Blood test(BMP) twice a week and follow up with your Farm Machinery Set Up Mechanic with results as advised Seek immediate medical attention if your symptoms reoccur or worsen Current Hospital Diet Patient's current hospital diet: Regular Diet Discharge Diet Recommended Diet: Regular Diet Procedures Procedures Performed: A-Port Insertion Right Internal Jugular vein Pending Studies Studies pending at discharge: no Medical Emergencies . Who to Call and When: Medical Emergencies: If at any time you feel your situation is an emergency, please call 911 immediately. . Non-Emergent Contact Non-Emergency issues call your: Primary Care Provider, Oncologist, Surgeon Call Non-Emergent contact if: you have a fever, your pain is not controlled, your pain is worsening, your pain is unusual for you, your pain is concerning you, you have any medication questions Seek immediate medical attention if your symptoms reoccur or worsen . . "Provider Documentation" section prepared by Jac Florez. . VTE Core Measure Inpt VTE Proph given/why not?: SCD's <Electronically signed by Jac Florez MD> Signed: 05/29/17 [id number] Signed: The status of this report is Signed * If report status is Draft, the document has not been finalized by the responsible provider.
[2017-05-29] MEDS: OXYCODONE HCL IR 5 MG TAB (IMMEDIATE RELEASE) PO PRN (14:48)
[2017-05-29 14:52] VITALS: BP 102/65; PULSE 67; TEMP 36.7; O2SAT 96
[2017-06-30] MEDS ORDERED: PRLSR20 PO (12:13)
[2017-06-30] MEDS ORDERED: [UNRECOGNIZED DRUG - OTHER] SQ (12:13)
[2017-07-17] MEDS ORDERED: ONDA8TAB6 PO (13:24)
== END 2017-05-29 15:30 | disposition home or self-care (01) | DRG 167 ==
LOC: C.EDB 10:59 → C.4E 14:54 → ENRESERV 15:51
PROVIDERS: ADMIT Family Medicine; ATTEND Internal Medicine
PROC: 07B73ZX Excision of Thorax Lymphatic, Percutaneous Approach, Diagnostic (ICD-10-PCS; principal; 2017-05-26 12:00)
PROC: 0BJ08ZZ Inspection of Tracheobronchial Tree, Via Natural or Artificial Opening Endoscopic (ICD-10-PCS; principal; 2017-05-26 12:00)
PROC: 0JH60WZ Insertion of Totally Implantable Vascular Access Device into Chest Subcutaneous Tissue and Fascia, Open Approach (ICD-10-PCS; 2017-05-29)
PROC: 02HV33Z Insertion of Infusion Device into Superior Vena Cava, Percutaneous Approach (ICD-10-PCS; 2017-05-29)
DX: C34.11 Malignant neoplasm of upper lobe, right bronchus or lung (principal); C79.51 Secondary malignant neoplasm of bone; C79.31 Secondary malignant neoplasm of brain; C78.7 Secondary malignant neoplasm of liver and intrahepatic bile duct; E22.2 Syndrome of inappropriate secretion of antidiuretic hormone; K59.00 Constipation, unspecified; E78.5 Hyperlipidemia, unspecified; Z87.01 Personal history of pneumonia (recurrent); Z87.891 Personal history of nicotine dependence; Z79.82 Long term (current) use of aspirin; Z83.3 Family history of diabetes mellitus; Z82.49 Family history of ischemic heart disease and other diseases of the circulatory system

== ENCOUNTER → 2017-05-30 | Outpatient (CLI) | payer OTHER ==
[~2017-05-30] MED LIST: ASPI81TA28 PO; DXM/4 PO; ENOX1INJ11 SQ; FLX5 PO; MRLP17X PO; ONDA4TAB65 PO; ONDA8TAB6 PO; OXYSR10 PO; PRAV20TA PO; PRLSR20 PO; RXC5 PO; SDMC1 PO; SENN8.6T7 PO; VNTHFA/IN INH; [UNRECOGNIZED DRUG - OTHER] SQ
== END | disposition home or self-care (01) ==
LOC: C.ONC 09:15
PROVIDERS: ATTEND Physician Assistant Medical
DX: Z51.0 Encounter for antineoplastic radiation therapy (principal); C79.31 Secondary malignant neoplasm of brain; C34.90 Malignant neoplasm of unspecified part of unspecified bronchus or lung

== ENCOUNTER → 2017-06-18 | Outpatient (CLI) | payer OTHER ==
[~2017-06-18] MED LIST changes: -DXM/4 PO; -ENOX1INJ11 SQ; -ONDA4TAB65 PO; -ONDA8TAB6 PO; -PRLSR20 PO; -SENN8.6T7 PO; -VNTHFA/IN INH; -[UNRECOGNIZED DRUG - OTHER] SQ
--- NOTE | 2017-06-18 11:50 | DIAGNOSTIC IMAGING REPORT ---
BILATERAL LOWER EXTREMITY VENOUS DOPPLER HISTORY: SMALL CELL CARCINOMA, B/L LEG PEDAL EDEMA STAT COMPARISON STUDY: Venous Doppler 05/25/2017. FINDINGS: No DVT within the right lower extremity. There is nonocclusive thrombus seen within the distal popliteal vein and within the peroneal veins on the left. The remaining left deep venous structures are patent. There is slow flow identified within the proximal to mid left popliteal vein. IMPRESSION: 1. No DVT within the right lower extremity. 2. Nonocclusive thrombus seen within the distal left popliteal vein and left peroneal veins. Electronically signed by: Ryan Guzman M.D. 06/18/2017 11:49 AM Dictated Date/Time: 06/18/2017 11:47 AM
== END | disposition home or self-care (01) ==
LOC: C.ULTR 10:54
PROVIDERS: ATTEND Internal Medicine Hematology & Oncology
DX: I82.432 Acute embolism and thrombosis of left popliteal vein (principal); C34.11 Malignant neoplasm of upper lobe, right bronchus or lung; R60.0 Localized edema

== ENCOUNTER 2017-07-11 11:12 | Inpatient (IN) | payer OTHER ==
[~2017-07-11] VITALS: Ht 175.3 cm; Wt 60.7 kg
[2017-07-11] VITALS (18 sets, daily range): BP systolic 91–109; BP diastolic 52–67; PULSE 66–83; TEMP 36.2–37.3; O2SAT 94–100; Ht 175.3 cm; Wt 60.7 kg
[~2017-07-11 11:12] MED LIST changes: -ASPI81TA28 PO; -FLX5 PO; -MRLP17X PO; -PRAV20TA PO; +PRLSR20 PO; +[UNRECOGNIZED DRUG - OTHER] SQ
[2017-07-11] MEDS ORDERED: ENOX1INJ11 SQ (12:04)
--- NOTE | 2017-07-11 12:20 | DIAGNOSTIC IMAGING REPORT ---
CHEST ONE VIEW PORTABLE CLINICAL HISTORY: Atypical chest pain. Hemoptysis. COMPARISON STUDY: 05/29/2017 FINDINGS: The heart is normal in size. There is a right-sided A-Port catheter. The patient's right upper lobe mass appears slightly smaller. There is persistent right hilar and mediastinal lymphadenopathy. There are subtle right upper lobe airspace opacities. Since the prior study, the patient has developed a small left pleural effusion with associated left basilar airspace opacities[ IMPRESSION: 1. Right upper lobe pulmonary mass with associated adenopathy 2. Very subtle right upper lobe airspace opacities 3. Interval development of a small left pleural effusion with associated left lower lobe airspace opacities Electronically signed by: Yehuda Rouse M.D. 07/11/2017 12:18 PM Dictated Date/Time: 07/11/2017 12:17 PM
[2017-07-11 12:49] LABS: INR 1.2 (0.9-1.1); PTT PATIENT 37.6 SECONDS (21.0-31.0)
[2017-07-11 12:52] LABS: HEMATOCRIT 19.7 % (37-47); HEMOGLOBIN 6.6 g/dL (12.0-16.0); MEAN CELL VOLUME 89.5 fL (80-100); MEAN CORPUSCULAR HGB CONC 33.5 g/dl (32-36); RED CELL DISTRIBUTION WIDTH CV 14.3 % (11.5-14.5); RED CELL DISTRIBUTION WIDTH SD 47.4 fL (36.4-46.3); WHITE BLOOD COUNT 0.87 K/uL (4.8-10.8)
[2017-07-11 13:02] LABS: ALBUMIN 2.2 gm/dl (3.4-5.0); TOTAL PROTEIN 6.1 gm/dl (6.4-8.2)
[2017-07-11 13:06] LABS: BASO % 1.1 %; BASO ABS # 0.01 K/uL (0-0.2); EOS % 2.3 %; EOS ABS # 0.02 K/uL (0-0.5); MONO % 3.4 %; MONO ABS # 0.03 K/uL (0.11-0.59); NEUT % 1.2 %; NEUT ABS # 0.01 K/uL (1.4-6.5); PLATELET COUNT 2 K/uL (130-400)
[2017-07-11 13:14] LABS: CALCIUM 8.4 mg/dl (8.5-10.1); CREATININE 0.74 mg/dl (0.60-1.20); POTASSIUM 3.5 mmol/L (3.5-5.1)
[2017-07-11] MEDS ORDERED: CEFEPIME IV 2,000 MG in SYRINGE 7.5 ML IV STA (13:34)
--- NOTE | 2017-07-11 13:42 | EMERGENCY ROOM VISIT NOTE ---
History Report prepared by Felipe: Zain Mendoza Under the Supervision of: Dr. Duane Campbell M.D. First contact with patient: 11:35 Chief Complaint: HYPOTENSION Stated Complaint: COUGHING UP BLOOD, LOW BP History of Present Illness The patient is a 51 year old female who presents to the Emergency Room with complaints of constant hypotension beginning this morning. She has a history of stage four small cell lung cancer. Her cancer has metastasized to her bones and brain. The patient's most recent chemotherapy treatment was last week. Her most recent radiation treatment was about a month ago. Per , the patient began coughing last night, and has had a lot of blood in her cough. He states that the patient had a lot grade fever this morning. The patient denies headache , black or bloody stool, sore throat, SOB, nausea, or vomiting. She is currently on Lovenox for recent DVT. She is currently on a sodium pill. Source of History: patient, spouse/significant other () Onset: This morning Quality: other (hypotension) Timing: constant Associated Symptoms: + cough (producing blood), No headache, No sorethroat, No SOB, No nausea, No vomiting, No melena, No hematochezia Review of Systems See HPI for pertinent positives & negatives. A total of 10 systems reviewed and were otherwise negative. Past Medical & Surgical Medical Problems: (1) HLD (hyperlipidemia) (2) Lung cancer (3) Migraine Surgical Problems: (1) Hx of lumpectomy (2) Previous section (3) S/P breast biopsy Old medical records were reviewed. Nurse's notes were reviewed and I agree with. Family History Diabetes mellitus MOTHER FH: CAD (coronary artery disease) FATHER BROTHER Social History Smoking Status: Former Smoker Alcohol Use: occasionally Drug Use: none Marital Status: Housing Status: lives with family Current/Historical Medications Scheduled Enoxaparin Sodium (Lovenox), 70 MG SQ Q12 Omeprazole (Prilosec), 20 MG PO DAILY Oxycodone HCl (Oxycontin), 10 MG PO Q12 Sodium Chloride (Sodium Chloride), 1 GM PO BID17 Scheduled PRN Oxycodone HCl (Oxycodone HCl), 5 MG PO Q4H PRN for Pain Allergies Coded Allergies: No Known Allergies (Unverified , 07/11/17) Physical Exam Vital Signs Date Time Temp Pulse Resp B/P (MAP) Pulse Ox O2 Delivery O2 Flow Rate FiO2 07/11/17 16:12 36.7 72 16 109/60 99 2.0 07/11/17 15:41 36.7 75 16 106/55 99 2.0 07/11/17 15:29 36.7 78 16 108/59 99 2.0 07/11/17 14:54 36.2 89 22 97/60 99 Nasal Cannula 2.0 07/11/17 14:25 37.3 83 16 103/63 100 2.0 07/11/17 14:05 62 07/11/17 14:00 37.1 83 18 104/64 98 2.0 07/11/17 13:05 94 Humidified Oxygen 2.0 07/11/17 13:00 83 16 106/45 86 Room Air 07/11/17 12:33 81 07/11/17 12:30 86 20 89/56 92 Room Air 07/11/17 12:00 84 16 104/58 93 Room Air 07/11/17 11:45 Room Air 07/11/17 11:18 37.0 99 18 74/52 97 Room Air Physical Exam General: Cachectic, chronically-ill appearing middle aged female in no acute distress. Wearing mask. HEENT: Normal cephalic atraumatic. Pupils are equal round and reactive to light. Extraocular movements are intact. Oropharynx is pink with moist mucous membranes. No swelling of the mouth lips or tongue. Neck: Supple with a midline trachea. No meningeal signs or stiffness, no JVD or bruits. No Stridor. Chest: Clear to auscultation bilaterally. No wheezes or rhonchi. No increased work of breathing. A port in right chest. Heart: regular rate and rhythm. Abdomen: Soft nontender, nondistended without rebound guarding or rigidity. Extremities: No cyanosis clubbing or edema. No calf tenderness or assymetry Spine/Back. Non tender to palpation. No CVA tenderness Skin: Good turgor. Petechiae on the bilateral legs and soft palate Neurologic exam: Cranial nerves two through 12 are intact. Motor and sensation are intact and symmetrical throughout. Medical Decision & Procedures ER Provider Diagnostic Interpretation: Radiology results as stated below per my review and radiologist interpretation: CHEST ONE VIEW PORTABLE FINDINGS: The heart is normal in size. There is a right-sided A-Port catheter. The patient's right upper lobe mass appears slightly smaller. There is persistent right hilar and mediastinal lymphadenopathy. There are subtle right upper lobe airspace opacities. Since the prior study, the patient has developed a small left pleural effusion with associated left basilar airspace opacities[ IMPRESSION: 1. Right upper lobe pulmonary mass with associated adenopathy 2. Very subtle right upper lobe airspace opacities 3. Interval development of a small left pleural effusion with associated left lower lobe airspace opacities Electronically signed by: Yehuda Rouse M.D. 07/11/2017 12:18 PM Laboratory Results 07/11/17 11:45 Red Blood Count 2.20, Mean Corpuscular Volume 89.5, Mean Corpuscular Hemoglobin 30.0, Mean Corpuscular Hemoglobin Concent 33.5, Neutrophils (%) (Auto) 1.2, Lymphocytes (%) (Auto) 92.0, Monocytes (%) (Auto) 3.4, Eosinophils (%) (Auto) 2.3, Basophils (%) (Auto) 1.1, Neutrophils # (Auto) 0.01, Lymphocytes # (Auto) 0.80, Monocytes # (Auto) 0.03, Eosinophils # (Auto) 0.02, Basophils # (Auto) 0.01 07/11/17 12:43 Test 07/11/17 11:45 07/11/17 11:58 07/11/17 12:43 White Blood Count 0.87 K/uL (4.8-10.8) Red Blood Count 2.20 M/uL (4.2-5.4) Hemoglobin 6.6 g/dL (12.0-16.0) Hematocrit 19.7 % (37-47) Mean Corpuscular Volume 89.5 fL (80-100) Mean Corpuscular Hemoglobin 30.0 pg (25-34) Mean Corpuscular Hemoglobin Concent 33.5 g/dl (32-36) Platelet Count 2 K/uL (130-400) Neutrophils (%) (Auto) 1.2 % Lymphocytes (%) (Auto) 92.0 % Monocytes (%) (Auto) 3.4 % Eosinophils (%) (Auto) 2.3 % Basophils (%) (Auto) 1.1 % Neutrophils # (Auto) 0.01 K/uL (1.4-6.5) Lymphocytes # (Auto) 0.80 K/uL (1.2-3.4) Monocytes # (Auto) 0.03 K/uL (0.11-0.59) Eosinophils # (Auto) 0.02 K/uL (0-0.5) Basophils # (Auto) 0.01 K/uL (0-0.2) RDW Standard Deviation 47.4 fL (36.4-46.3) RDW Coefficient of Variation 14.3 % (11.5-14.5) Immature Granulocyte % (Auto) 0.0 % Immature Granulocyte # (Auto) 0.00 K/uL (0.00-0.02) Platelet Estimate SIGNIFIC DECREASED Red Blood Cell Morphology Unremarkable Prothrombin Time 12.4 SECONDS (9.0-12.0) Prothromb Time International Ratio 1.2 (0.9-1.1) Activated Partial Thromboplast Time 37.6 SECONDS (21.0-31.0) Partial Thromboplastin Ratio 1.4 Total Bilirubin 0.3 mg/dl (0.2-1) Direct Bilirubin 0.1 mg/dl (0-0.2) Aspartate Amino Transf (AST/SGOT) 14 U/L (15-37) Alanine Aminotransferase (ALT/SGPT) 12 U/L (12-78) Alkaline Phosphatase 92 U/L (45-117) Total Protein 6.1 gm/dl (6.4-8.2) Albumin 2.2 gm/dl (3.4-5.0) Lipase 480 U/L (73-393) Bedside Lactic Acid Venous 1.08 mmol/L (0.90-1.70) Anion Gap 8.0 mmol/L (3-11) Est Creatinine Clear Calc Drug Dose 95.1 ml/min Estimated GFR () 109.5 Estimated GFR (Non- 94.5 BUN/Creatinine Ratio 13.0 (10-20) Calcium Level 8.4 mg/dl (8.5-10.1) Laboratory studies as stated above per my review. Medications Administered Medications (Trade) Dose Ordered Sig/Ayanna Route Start Time Stop Time Status Last Admin Dose Admin Cefepime HCl 2000 mg/Syringe 20 ml @ 5 mls/min NOW STAT IV 07/11/17 13:34 07/11/17 13:37 DC 07/11/17 15:04 5 MLS/MIN ECG Indication: other (hypotension) Rate (beats per minute): 92 Rhythm: normal sinus Findings: other (Poor baseline. Low voltage. Non-specific T-wave abnormality.) Comparison ECG Date: no prior available ED Course 1138: Past medical records reviewed. The patient was evaluated in room A2, and a complete history and physical examination were performed. 1250: I reassessed the patient. She appears comfortable. 1334: Ordered Cefepime HCl 2000 mg/Syringe 20 mL @ 5 mL.min IV. 1322: Upon reevaluation, the patient is resting comfortably. I discussed the results and treatment plan with the patient. She verbalized agreement of the treatment plan. The patient will be evaluated for further management. 1500: I checked in on the patient. She appears comfortable and is receiving platelets. Medical Decision Differentials include, but are not limited to; anemia, hemoptysis, thrombocytopenia, PE, cancer complication, sepsis, and electrolyte or metabolic abnormality. This patient comes in as described above. She was placed in room A2. She comes in with a chief complaint of hemoptysis and hypotension. She has a history of small cell lung cancer with metastases to the brain. She has received chemotherapy about a week ago is followed locally by Dr. Awad. She has an A port in the right chest which was accessed. Although she was hypotensive at home and in triage when I first saw her blood pressure was low 100s and she appears comfortable with this. Given her weight, her blood pressure is appropriate at present. She has a small amount of hemoptysis with coughing which she does occasionally but she has no massive hemoptysis. She was typed and screened .chest x-ray was obtained and multiple blood testing was obtained as well as an EKG. I did discuss case with Dr. Dr. Awad twice. Her hemoglobin came back at 6.6 with platelets of 2000. Her ANC was also quite low at 10, she has no fever here although at home had a low-grade temperature of 99. While she's not technically had a neutropenic fever there is some questionable infiltrate on chest x-ray which may be more of related to her cancer however in light of this, I did opt to give her cefepime 2 g IV for broad -spectrum antibiotic coverage. She has been cultured. I also discussed her blood work with Dr. Awad who did reccomend that I transfused with platelets and red cells. He says she does not need to to have irradiated blood. The patient has remained stable. I did consult the hospitalist group to come see her as she will need to be admitted/observed for further treatment and evaluation. The patient has happy with the plan. Medication Reconcilliation Current Medication List: was personally reviewed by me Blood Pressure Screening Patient's blood pressure: Low blood pressure Blood pressure disposition: Did not require urgent referral Consults Time Called: 1155 Consulting Physician: Dr. Lares - Oncology Returned Call: 1200 Discussed the patient's case. Dr. Lares agrees with the treatment plan. 1316: I spoke with Dr. Lares again. He recommends giving the patient platelets and blood. Additional Consults: Time Called: 1318 Consulted Physician: Dr. [place] [facility] [place] Returned Call: 1338 Additional Comments: Discussed the patient's case. The patient will be evaluated for further management. Impression Primary Impression: Metastatic small cell carcinoma to brain Additional Impressions: Hemoptysis Anemia Thrombocytopenia Neutropenia Pneumonia Critical Care I have personally spent greater than 45 minutes of critical care time in the direct management of this patient. This includes bedside care, interpretation of diagnostic studies, and testing, discussion with consultants, patient, and family members, and other required patient management activities. This 45 minutes is in excess of all separately billable procedures. Scribe Attestation The scribe's documentation has been prepared under my direction and personally reviewed by me in its entirety. I confirm that the note above accurately reflects all work, treatment, procedures, and medical decision making performed by me. Departure Information Dispostion Being Evaluated By Hospitalist Referrals Mic Garcia M.D.[email or web address]) (PCP) Patient Instructions My [facility] Problem Qualifiers
[2017-07-11] MEDS ORDERED: MAGNESIUM HYDROXIDE SUSP 30 ML UDC PO PRN (14:45)
[2017-07-11] MEDS ORDERED: OXYCODONE HCL IR 5 MG TAB (IMMEDIATE RELEASE) PO PRN (14:45)
[2017-07-11] MEDS ORDERED: ALUMINUM/MAGNESIUM/SIMETH (MAALOX MAX) 30 ML UDC PO PRN (14:45)
[2017-07-11] MEDS ORDERED: MoRPHine SULFATE 2 MG/ML CARP IV PRN (14:45)
[2017-07-11] MEDS ORDERED: POLYETHYLENE (MIRALAX) 17 GM PACK PO PRN (14:45)
[2017-07-11] MEDS ORDERED: NITROGLYCERIN 0.4 MG SL PER TAB CHARGE SL PRN (14:45)
[2017-07-11] MEDS ORDERED: ACETAMINOPHEN 325 MG TAB PO PRN (14:45)
--- NOTE | 2017-07-11 15:15 | History and Physical ---
History & Physical Date & Time of Service: Jul 11, 2017 at 14:59 Chief Complaint: Coughing Up Blood, Low Bp Primary Care Physician: Mic Garcia M.D. ([place]) History of Present Illness Source: patient, family, clinic records, hospital records Patient is a pleasant 51 y/o female, with PMHx of small cell lung cancer w/ mets to brain and bone, SIADH, DVT, and GERD, who presented to the ED because of illness x1 day. Patient states yesterday she started to feel lethargic and had a productive cough. She is coughing up blood mixed w/ sputum. She finished radiation treatment roughly 1 month ago. She is currently going through chemotherapy- last treatment was last week. She follows w/ Dr. Awad. On 03/26 she was found to have thrombosis of distal L popliteal and L peroneal veins. In ED, patient was found to be pancytopenic- hgb 6.6 and platelets 2- transfusions started in ED to total 2 units of platelets and 2 units of PRBCs. CXR was questionable for PNA- she was started on IV Cefepime. She was seen by Dr. Melo last week due to +18 pound weight gain- she was treated w/ Lasix. Currently bace to base weight and stopped Lasix. +fever and chills. Patient denies any sweats, lightheadedness, dizziness, vision changes, CP, palpitations , edema, SOB, wheezing, abdominal pain, nausea, vomiting, diarrhea, urinary symptoms, melena, numbness/tingling, weakness, muscle/joint pain, anxiety/ depression, active bleeding, or new skin discoloration/changes. Past Medical/Surgical History Medical Problems: small cell lung cancer w/ mets to brain and bone SIADH DVT GERD HLD Surgical Problems: (1) Hx of lumpectomy Status: Chronic (2) Previous section Status: Chronic (3) S/P breast biopsy Status: Chronic Family History Diabetes mellitus MOTHER FH: CAD (coronary artery disease) FATHER BROTHER Social History Smoking Status: Former Smoker Drug Use: none Marital Status: Housing status: lives with family Allergies Coded Allergies: No Known Allergies (Unverified , 07/11/17) Home Medications Scheduled Enoxaparin Sodium (Lovenox), 70 MG SQ Q12 Omeprazole (Prilosec), 20 MG PO DAILY Oxycodone HCl (Oxycontin), 10 MG PO Q12 Sodium Chloride (Sodium Chloride), 1 GM PO BID17 Scheduled PRN Oxycodone HCl (Oxycodone HCl), 5 MG PO Q4H PRN for Pain Physical Exam Vital Signs Date Time Temp Pulse Resp B/P (MAP) Pulse Ox O2 Delivery O2 Flow Rate FiO2 07/11/17 14:54 36.2 89 22 97/60 99 Nasal Cannula 2.0 07/11/17 14:25 37.3 83 16 103/63 100 2.0 07/11/17 14:05 62 07/11/17 14:00 37.1 83 18 104/64 98 2.0 07/11/17 13:05 94 Humidified Oxygen 2.0 07/11/17 13:00 83 16 106/45 86 Room Air 07/11/17 12:33 81 07/11/17 12:30 86 20 89/56 92 Room Air 07/11/17 12:00 84 16 104/58 93 Room Air 07/11/17 11:45 Room Air 07/11/17 11:18 37.0 99 18 74/52 97 Room Air General Appearance: no apparent distress, + thin, + pertinent finding ( chronically ill apprearing ) Head: normocephalic, atraumatic Eyes: normal inspection, PERRL ENT: hearing grossly normal Neck: supple Respiratory/Chest: no respiratory distress, no accessory muscle use, + decreased breath sounds (throughout ) Cardiovascular: regular rate, rhythm Abdomen/GI: normal bowel sounds, non tender, soft Back: normal inspection Extremities/Musculoskelatal: no calf tenderness, + pedal edema (bilateral lower extremities, non-pitting), + pertinent finding (+bruising/patechiae RLE ) Neurologic/Psych: alert, normal mood/affect, oriented x 3 Skin: warm/dry, no rash, + pallor Diagnostics Laboratory Results Results Past 24 Hours Test 07/11/17 11:45 07/11/17 11:58 07/11/17 12:43 Range/Units White Blood Count 0.87 4.8-10.8 K/uL Red Blood Count 2.20 4.2-5.4 M/uL Hemoglobin 6.6 12.0-16.0 g/dL Hematocrit 19.7 37-47 % Mean Corpuscular Volume 89.5 80-100 fL Mean Corpuscular Hemoglobin 30.0 25-34 pg Mean Corpuscular Hemoglobin Concent 33.5 32-36 g/dl Platelet Count 2 130-400 K/uL Neutrophils (%) (Auto) 1.2 % Lymphocytes (%) (Auto) 92.0 % Monocytes (%) (Auto) 3.4 % Eosinophils (%) (Auto) 2.3 % Basophils (%) (Auto) 1.1 % Neutrophils # (Auto) 0.01 1.4-6.5 K/uL Lymphocytes # (Auto) 0.80 1.2-3.4 K/uL Monocytes # (Auto) 0.03 0.11-0.59 K/uL Eosinophils # (Auto) 0.02 0-0.5 K/uL Basophils # (Auto) 0.01 0-0.2 K/uL RDW Standard Deviation 47.4 36.4-46.3 fL RDW Coefficient of Variation 14.3 11.5-14.5 % Immature Granulocyte % (Auto) 0.0 % Immature Granulocyte # (Auto) 0.00 0.00-0.02 K/uL Platelet Estimate SIGNIFIC DECREASED Red Blood Cell Morphology Unremarkable Prothrombin Time 12.4 9.0-12.0 SECONDS Prothromb Time International Ratio 1.2 0.9-1.1 Activated Partial Thromboplast Time 37.6 21.0-31.0 SECONDS Partial Thromboplastin Ratio 1.4 Total Bilirubin 0.3 0.2-1 mg/dl Direct Bilirubin 0.1 0-0.2 mg/dl Aspartate Amino Transf (AST/SGOT) 14 15-37 U/L Alanine Aminotransferase (ALT/SGPT) 12 12-78 U/L Alkaline Phosphatase 92 45-117 U/L Total Protein 6.1 6.4-8.2 gm/dl Albumin 2.2 3.4-5.0 gm/dl Lipase 480 73-393 U/L Bedside Lactic Acid Venous 1.08 0.90-1.70 mmol/L Sodium Level 134 136-145 mmol/L Potassium Level 3.5 3.5-5.1 mmol/L Chloride Level 96 98-107 mmol/L Carbon Dioxide Level 29 21-32 mmol/L Anion Gap 8.0 3-11 mmol/L Blood Urea Nitrogen 10 7-18 mg/dl Creatinine 0.74 0.60-1.20 mg/dl Est Creatinine Clear Calc Drug Dose 95.1 ml/min Estimated GFR () 109.5 Estimated GFR (Non- 94.5 BUN/Creatinine Ratio 13.0 10-20 Random Glucose 93 70-99 mg/dl Calcium Level 8.4 8.5-10.1 mg/dl Microbiology Results 07/11/17 Blood Culture, Received Pending 07/11/17 Blood Culture, Received Pending Diagnostic Radiology CHEST ONE VIEW PORTABLE CLINICAL HISTORY: Atypical chest pain. Hemoptysis. COMPARISON STUDY: 05/29/2017 FINDINGS: The heart is normal in size. There is a right-sided A-Port catheter. The patient's right upper lobe mass appears slightly smaller. There is persistent right hilar and mediastinal lymphadenopathy. There are subtle right upper lobe airspace opacities. Since the prior study, the patient has developed a small left pleural effusion with associated left basilar airspace opacities[ IMPRESSION: 1. Right upper lobe pulmonary mass with associated adenopathy 2. Very subtle right upper lobe airspace opacities 3. Interval development of a small left pleural effusion with associated left lower lobe airspace opacities Electronically signed by: Yehuda Rouse M.D. 07/11/2017 12:18 PM Dictated Date/Time: 07/11/2017 12:17 PM The status of this report is Signed. Draft = Not yet reviewed or approved by Radiologist. Signed = Reviewed and approved by Radiologist. Impression Assessment and Plan Patient is a pleasant 51 y/o female, with PMHx of small cell lung cancer w/ mets to brain and bone, SIADH, DVT, and GERD, who presented to the ED because of illness x1 day. Small cell lung cancer w/ mets to brain and bone, pancytopenia, hemoptysis: - Admit to tele for cardiac monitoring - O2 protocol - EKG QAM and PRN for chest pain - Monitor I&Os and daily weights - CXR ?PNA- IV Cefepime for prophylaxis pending cultures/oncology input - Neutropenic precautions - BCx, UA, influenza swab pending - Transfuse 2 unit PRBCs and 2 unit platelets- follow CBC and transfuse PRN - Check TSH - Continue Oxycodone PRN for pain management - Consult hematology/oncology, appreciate recommendations- follows w/ Dr. Joey Henry h/o DVT: - Hold Lovenox SQ injections due to pancytopenia - Discussed case w/ vascular surgery- is not a candidate for a filter at this time- once things stabilize, recommend restarting anticoagulation SIADH- follows w/ Dr. Melo: - Follows 54 oz fluid restriction - Continue Sodium tablets 1 gm BID GERD: Protonix daily DVT prophylaxis: Contraindicated due to pancytopenia Code status: LEVEL I, FULL Dispo: From home, lives w/ - PT/OT and CM consulted Level of Care Telemetry Resuscitation Status FULL RESUSCITATION VTE Prophylaxis VTE Risk Assessment Done? Y/N: Yes Risk Level: Moderate Given or contraindicated: Contraindicated Note Attending Admission Note & Attestation: Pt seen/examined, chart reviewed, care plan d/w JOHNY Ibarra. I agree w/ the connolly components of her admission documentation. 51yo female with stage 4 small cell lung ca - last chemotherapy about 7-10 days - s/p whole brain xrt for brain mets - presenting with multiple episodes of hemoptysis today along with feeling unwell for 24 hours. Had low-grade temp of 99.6 at home and cough productive of sputum in addition to the hemoptysis. She denies chills, myalgias, arthralgias. Has noted petechiae on skin. Is on lovenox BID for recently discovered DVT. PMH, PSH, allergies, meds, sochx, famhx, ros - reviewed VSS but BPs low-normal no fever gen - chronically ill appearing, pale, NAD mouth - no mucositis heart - RRR lungs - CTA b/l abd - soft, NT, no HSM ext - no edema skin - scattered petechiae on legs, arms, etc; port, right chest - clean ANC 10 Hb <7 platelets 2 A/P: 1. severe pancytopenia in setting of recent chemotherapy for stage 4 small cell lung ca 2. severe neutropenia 3. hemoptysis 4. DVT of left leg on lovenox BID 5. stage 4 lung ca with bone/brain mets 6. possible pneumonia, need to cover for gram negative etiology Tx 1unit of PRBC and 1unit of apheresed platelets; check H/H and platelet count after both units transfuse additional 1unit of PRBCs and 1unit of apheresed platelets as necessary hold lovenox need for IVC filter in light of hemoptysis and severe thrombocytopenia - d/w Dr. Marks agree with IV cefepime for possible pneumonia; check rapid flu neutropenic precautions Edouard HUYNH MD
[2017-07-11] MEDS ORDERED: MUPIROCIN 2% OINT 22 GM TUBE EXT PRN (16:00)
[2017-07-11] MEDS ORDERED: SODIUM CHLORIDE 0.65% NA SOLN 45 ML (OCEAN) PRN (16:00)
[2017-07-11 17:22] LABS: INFLUENZA B ANTIGEN Neg for Influ B (NEG)
[2017-07-11 18:31] LABS: HEMATOCRIT 21.1 % (37-47)
[2017-07-11] MEDS ORDERED: CEFEPIME CONSULT ACTIVE PRN (19:00)
[2017-07-11] MEDS: SODIUM CHLORIDE 1 GM TAB PO SCH (20:13)
[2017-07-11] MEDS: OXYCODONE HCL 10 MG TABCR (OXYCONTIN) PO SCH (21:03)
[2017-07-11] MEDS: CEFEPIME IV 2,000 MG in SYRINGE 7.5 ML IV SCH (23:59)
[2017-07-12] VITALS (7 sets, daily range): BP systolic 93–131; BP diastolic 59–73; PULSE 72–86; TEMP 36.5–36.9; O2SAT 94–99
[2017-07-12 00:45] LABS: HEMATOCRIT 23.2 % (37-47)
[2017-07-12 07:57] LABS: CALCIUM 8.4 mg/dl (8.5-10.1); CREATININE 0.6 mg/dl (0.60-1.20); POTASSIUM 3.4 mmol/L (3.5-5.1)
[2017-07-12 08:10] LABS: HEMATOCRIT 25.2 % (37-47); HEMOGLOBIN 8.5 g/dL (12.0-16.0); MEAN CELL VOLUME 86.6 fL (80-100); MEAN CORPUSCULAR HEMOGLOBIN 29.2 pg (25-34); MEAN CORPUSCULAR HGB CONC 33.7 g/dl (32-36); PLATELET COUNT 48 K/uL (130-400); RED CELL DISTRIBUTION WIDTH CV 15.1 % (11.5-14.5); RED CELL DISTRIBUTION WIDTH SD 47.3 fL (36.4-46.3); WHITE BLOOD COUNT 0.58 K/uL (4.8-10.8)
[2017-07-12] MEDS ORDERED: CEFEPIME IV 2,000 MG in DEXTROSE 5% 100ML 100 ML IV SCH (09:00)
[2017-07-12 09:07] LABS: MEAN PLATELET VOLUME 8.8 fL (7.4-10.4)
[2017-07-12 09:11] LABS: BASO % 1.7 %; BASO ABS # 0.01 K/uL (0-0.2); EOS % 3.4 %; EOS ABS # 0.02 K/uL (0-0.5); IG# 0.01 K/uL (0.00-0.02); LYMPH % 84.5 %; LYMPH ABS # 0.49 K/uL (1.2-3.4); MONO % 8.6 %; MONO ABS # 0.05 K/uL (0.11-0.59); NEUT % 0.1 %
--- NOTE | 2017-07-12 09:15 | Oncology Consultation ---
Oncology/Heme Consultation Date of Consultation: Jul 12, 2017. Attending Physician: Arnav Hassan MD Reason for Consultation: Small cell lung cancer Pancytopenia History of Present Illness Ms. Sanchez is a 51 year old woman with extensive stage small cell lung cancer with widespread osseous metastatic disease. She received her first cycle of chemotherapy (carboplatin/etoposide) about 10 days ago. She presented yesterday with hypotension, severe fatigue, and hemoptysis. She was found to be severely pancytopenic. She was transfused PRBCs and platelets and feels much better. Her bleeding has stopped and her energy is improved. 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 Status: Acute (4) Neutropenia Status: Acute (5) Pneumonia Status: Acute (6) Thrombocytopenia Status: Acute Family History Diabetes mellitus MOTHER FH: CAD (coronary artery disease) FATHER BROTHER Social History Smoking Status: Former Smoker Drug Use: none Marital Status: Housing Status: lives with family Allergies Coded Allergies: No Known Allergies (Unverified , 07/11/17) Home Medications Scheduled Enoxaparin Sodium (Lovenox), 70 MG SQ Q12 Omeprazole (Prilosec), 20 MG PO DAILY Oxycodone HCl (Oxycontin), 10 MG PO Q12 Sodium Chloride (Sodium Chloride), 1 GM PO BID17 Scheduled PRN Oxycodone HCl (Oxycodone HCl), 5 MG PO Q4H PRN for Pain Current Inpatient Medications Current Inpatient Medications Medications (Trade) Dose Ordered Sig/Ayanna Route Start Time Stop Time Status Last Admin Dose Admin Acetaminophen (Tylenol Tab) 650 mg Q4H PRN PO 07/11/17 14:45 08/10/17 14:44 Al Hydrox/Mg Hydrox/Simethicone (Maalox Max Susp) 15 ml Q4H PRN PO 07/11/17 14:45 08/10/17 14:44 Magnesium Hydroxide (Milk Of Magnesia Susp) 30 ml Q6H PRN PO 07/11/17 14:45 08/10/17 14:44 Polyethylene (Miralax Powder Packet) 17 gm DAILY PRN PO 07/11/17 14:45 08/10/17 14:44 Ondansetron HCl (Zofran Inj) 4 mg Q6H PRN IV 07/11/17 14:45 08/10/17 14:44 Oxycodone HCl (Roxicodone Immediate Rel Tab) 5 mg Q4H PRN PO 07/11/17 14:45 07/25/17 14:44 Oxycodone HCl (Oxycontin Tab) 10 mg Q12 PO 07/11/17 21:00 07/25/17 20:59 07/11/17 21:03 10 MG Sodium Chloride (Sodium Chloride Tab) 1 gm BID17 PO 07/11/17 17:00 08/10/17 16:59 07/11/17 20:13 1 GM Pantoprazole Sodium (Protonix Tab) 40 mg QAM PO 07/12/17 09:00 08/11/17 08:59 Nitroglycerin (Nitrostat Tab) 0.4 mg UD PRN SL 07/11/17 14:45 08/10/17 14:44 Morphine Sulfate (MoRPHine SULFATE INJ) 2 mg Q30M PRN IV 07/11/17 14:45 07/25/17 14:44 Mupirocin (Bactroban 2% Oint) 1 appln TID PRN EXT 07/11/17 16:00 08/10/17 15:59 Sodium Chloride (Victoria Nasal [place]) 1 sprays TID PRN NA 07/11/17 16:00 08/10/17 15:59 Cefepime HCl (Consult) 1 ea UD PRN N/A 07/11/17 19:00 08/10/17 18:59 Cefepime HCl 2000 mg/Syringe 20 ml @ 5 mls/min Q8H IV 07/12/17 00:00 07/14/17 00:00 07/11/17 23:59 5 MLS/MIN Review of Systems Constitutional: + weakness, + fatigue, No fever, No chills ENT: No unusual epistaxis Respiratory: + cough, + hemoptysis, No shortness of breath Cardiovascular: No chest pain, No edema Abdomen: No pain, No nausea, No vomiting Musculoskeletal: No joint pain, No muscle pain Genitourinary - Female: No dysuria, No hematuria Hematologic / Lymphatic: + abnormal bleeding/bruising Physical Exam Date Time Temp Pulse Resp B/P (MAP) Pulse Ox O2 Delivery O2 Flow Rate FiO2 07/12/17 07:59 36.6 74 18 131/73 (92) 99 07/12/17 04:30 Room Air 07/12/17 03:59 36.8 73 16 103/62 (76) 94 07/11/17 23:50 Room Air 07/11/17 23:45 37.1 71 16 93/61 (72) 94 07/11/17 22:54 36.7 71 18 106/61 100 07/11/17 22:37 36.2 66 16 99/52 98 07/11/17 21:33 36.3 74 18 92/62 96 07/11/17 21:00 36.8 81 18 102/58 98 2.0 07/11/17 20:33 36.5 82 18 94/63 99 2.0 07/11/17 20:10 36.3 74 18 97/60 100 2.0 07/11/17 20:05 36.5 77 18 98/63 100 2.0 07/11/17 20:00 36.6 72 18 91/63 99 2.0 07/11/17 19:54 Nasal Cannula 2.0 07/11/17 19:44 36.6 81 18 95/61 100 2.0 07/11/17 17:49 36.8 75 18 96/67 99 07/11/17 17:25 37.1 73 16 104/64 96 Nasal Cannula 2.0 07/11/17 17:12 37.1 73 16 104/64 96 2.0 07/11/17 16:12 36.7 72 16 109/60 99 2.0 07/11/17 15:41 36.7 75 16 106/55 99 2.0 07/11/17 15:29 36.7 78 16 108/59 99 2.0 07/11/17 14:54 36.2 89 22 97/60 99 Nasal Cannula 2.0 07/11/17 14:25 37.3 83 16 103/63 100 2.0 07/11/17 14:05 62 07/11/17 14:00 37.1 83 18 104/64 98 2.0 07/11/17 13:05 94 Humidified Oxygen 2.0 07/11/17 13:00 83 16 106/45 86 Room Air 07/11/17 12:33 81 07/11/17 12:30 86 20 89/56 92 Room Air 07/11/17 12:00 84 16 104/58 93 Room Air 07/11/17 11:45 Room Air 07/11/17 11:18 37.0 99 18 74/52 97 Room Air General Appearance: no apparent distress, + thin, + pertinent finding ( chronically ill-appearing ) Eyes: EOMI, sclerae normal (anicteric) ENT: pharynx normal (no purpura or bleeding) Respiratory/Chest: lungs clear Cardiovascular: regular rate, rhythm Abdomen/GI: non tender, soft Extremities/Musculoskelatal: no pedal edema Neurologic/Psych: no motor/sensory deficits, alert, oriented x 3 Laboratory Results Last 24 Hours Test 07/11/17 11:45 07/11/17 11:58 07/11/17 12:43 07/11/17 16:39 White Blood Count 0.87 K/uL Red Blood Count 2.20 M/uL Hemoglobin 6.6 g/dL Hematocrit 19.7 % Mean Corpuscular Volume 89.5 fL Mean Corpuscular Hemoglobin 30.0 pg Mean Corpuscular Hemoglobin Concent 33.5 g/dl Platelet Count 2 K/uL Neutrophils (%) (Auto) 1.2 % Lymphocytes (%) (Auto) 92.0 % Monocytes (%) (Auto) 3.4 % Eosinophils (%) (Auto) 2.3 % Basophils (%) (Auto) 1.1 % Neutrophils # (Auto) 0.01 K/uL Lymphocytes # (Auto) 0.80 K/uL Monocytes # (Auto) 0.03 K/uL Eosinophils # (Auto) 0.02 K/uL Basophils # (Auto) 0.01 K/uL RDW Standard Deviation 47.4 fL RDW Coefficient of Variation 14.3 % Immature Granulocyte % (Auto) 0.0 % Immature Granulocyte # (Auto) 0.00 K/uL Platelet Estimate SIGNIFIC DECREASED Red Blood Cell Morphology Unremarkable Prothrombin Time 12.4 SECONDS Prothromb Time International Ratio 1.2 Activated Partial Thromboplast Time 37.6 SECONDS Partial Thromboplastin Ratio 1.4 Total Bilirubin 0.3 mg/dl Direct Bilirubin 0.1 mg/dl Aspartate Amino Transf (AST/SGOT) 14 U/L Alanine Aminotransferase (ALT/SGPT) 12 U/L Alkaline Phosphatase 92 U/L Total Protein 6.1 gm/dl Albumin 2.2 gm/dl Lipase 480 U/L Bedside Lactic Acid Venous 1.08 mmol/L Sodium Level 134 mmol/L Potassium Level 3.5 mmol/L Chloride Level 96 mmol/L Carbon Dioxide Level 29 mmol/L Anion Gap 8.0 mmol/L Blood Urea Nitrogen 10 mg/dl Creatinine 0.74 mg/dl Est Creatinine Clear Calc Drug Dose 95.1 ml/min Estimated GFR () 109.5 Estimated GFR (Non- 94.5 BUN/Creatinine Ratio 13.0 Random Glucose 93 mg/dl Calcium Level 8.4 mg/dl Influenza Type A Antigen Neg for Influ A Influenza Type B Antigen Neg for Influ B Test 07/11/17 18:14 07/11/17 19:00 07/12/17 00:21 07/12/17 06:37 Hemoglobin 7.0 g/dL 8.0 g/dL 8.5 g/dL Hematocrit 21.1 % 23.2 % 25.2 % Urine Color YELLOW Urine Appearance CLEAR Urine pH 7.0 Urine Specific [place] 1.006 Urine Protein NEG Urine Glucose (UA) NEG Urine Ketones NEG Urine Occult Blood NEG Urine Nitrite NEG Urine Bilirubin NEG Urine Urobilinogen NEG Urine Leukocyte Esterase NEG Urine WBC (Auto) 1-5 /hpf Urine RBC (Auto) 0-4 /hpf Urine Hyaline Casts (Auto) 0 /lpf Urine Epithelial Cells (Auto) 5-10 /lpf Urine Bacteria (Auto) NEG White Blood Count 0.58 K/uL Red Blood Count 2.91 M/uL Mean Corpuscular Volume 86.6 fL Mean Corpuscular Hemoglobin 29.2 pg Mean Corpuscular Hemoglobin Concent 33.7 g/dl Platelet Count 48 K/uL Mean Platelet Volume 8.8 fL RDW Standard Deviation 47.3 fL RDW Coefficient of Variation 15.1 % Sodium Level 139 mmol/L Potassium Level 3.4 mmol/L Chloride Level 102 mmol/L Carbon Dioxide Level 30 mmol/L Anion Gap 7.0 mmol/L Blood Urea Nitrogen 7 mg/dl Creatinine 0.60 mg/dl Est Creatinine Clear Calc Drug Dose 117.3 ml/min Estimated GFR () 123.2 Estimated GFR (Non- 106.3 BUN/Creatinine Ratio 11.8 Random Glucose 77 mg/dl Calcium Level 8.4 mg/dl Thyroid Stimulating Hormone (TSH) 0.615 uIu/ml Assessment & Plan Ms. Sanchez has widespread bony metastases from small cell lung cancer. She had low counts prior to treatment, making me suspect she has marrow involvement as well. This episode further confirms this notion. Her marrow should recover as she responds to treatment, so hopefully this will not be an issue with future cycles. For now, I would not give any further platelet transfusions unless she starts to bleed again. I would consider PRBCs for a hemoglobin <7.5. She also has a lower extremity DVT and is on Lovenox. However, the clot was a distal and non-occlusive and is low-risk for propagation or embolism. I would hold her lovenox for now, until we see that her platelets are rising on their own.
[2017-07-12] MEDS: CEFEPIME IV 2,000 MG in SYRINGE 7.5 ML IV SCH ×3 (09:34→23:47)
[2017-07-12] MEDS: OXYCODONE HCL 10 MG TABCR (OXYCONTIN) PO SCH ×2 (09:34→20:11)
[2017-07-12] MEDS: PANTOprazole SOD 40 MG TAB PO SCH (09:35)
[2017-07-12] MEDS: SODIUM CHLORIDE 1 GM TAB PO SCH ×2 (09:35→17:16)
[2017-07-12] MEDS ORDERED: POTASSIUM CHLORIDE 20 MEQ TABCR PO STA (11:18)
--- NOTE | 2017-07-13 00:03 | Progress Note ---
Subjective Date of Service: Jul 12, 2017. Subjective Pt evaluation today including: conversation w/ patient, conversation w/ family , physical exam, chart review, lab review, review of studies, review of inpatient medication list Pain: no pain PO Intake: good Voiding: no voiding problems, no incontinence Patient is seen and examined by me. Pt denies cp, sob, dizziness, palpition and loss of consciousness. Pt denies nausea, vomiting, abdominal pain and constipation. Pt denies blurry vision and headache. 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 Status: Acute (4) Neutropenia Status: Acute (5) Pneumonia Status: Acute (6) Thrombocytopenia Status: Acute Review of Systems Constitutional: + weakness, + fatigue, No fever, No chills ENT: No unusual epistaxis Respiratory: + cough, + hemoptysis, No shortness of breath Cardiovascular: No chest pain, No edema Abdomen: No pain, No nausea, No vomiting Musculoskeletal: No joint pain, No muscle pain Genitourinary - Female: No dysuria, No hematuria Hematologic / Lymphatic: + abnormal bleeding/bruising All Other Systems: Reviewed and Negative Medications Medications (Trade) Dose Ordered Sig/Ayanna Route Start Time Stop Time Status Last Admin Dose Admin Pantoprazole Sodium (Protonix Tab) 40 mg QAM PO 07/12/17 09:00 08/11/17 08:59 07/12/17 09:35 40 MG Potassium Chloride (Klor-Con Tab) 20 meq NOW STAT PO 07/12/17 11:18 07/12/17 11:29 DC 07/12/17 12:56 20 MEQ Objective Vital Signs Date Time Temp Pulse Resp B/P (MAP) Pulse Ox O2 Delivery O2 Flow Rate FiO2 07/12/17 19:42 36.7 72 16 93/59 (70) 94 Room Air 07/12/17 16:40 36.9 76 18 98/66 (77) 96 07/12/17 16:00 Room Air 07/12/17 12:00 Room Air 07/12/17 11:44 36.5 75 16 95/62 (73) 95 Room Air 07/12/17 09:20 Room Air 07/12/17 07:59 36.6 74 18 131/73 (92) 99 07/12/17 04:30 Room Air 07/12/17 03:59 36.8 73 16 103/62 (76) 94 07/11/17 23:50 Room Air 07/11/17 23:45 37.1 71 16 93/61 (72) 94 07/11/17 22:54 36.7 71 18 106/61 100 07/11/17 22:37 36.2 66 16 99/52 98 Physical Exam Comments: General Appearance: no apparent distress, + thin, + pertinent finding ( chronically ill-appearing ) Eyes: EOMI, sclerae normal (anicteric) ENT: pharynx normal (no purpura or bleeding) Respiratory/Chest: lungs clear Cardiovascular: regular rate, rhythm Abdomen/GI: non tender, soft Extremities/Musculoskelatal: no pedal edema Neurologic/Psych: no motor/sensory deficits, alert, oriented x 3 Laboratory Results Last 24 Hours Test 07/12/17 00:21 07/12/17 06:37 Hemoglobin 8.0 g/dL 8.5 g/dL Hematocrit 23.2 % 25.2 % White Blood Count 0.58 K/uL Red Blood Count 2.91 M/uL Mean Corpuscular Volume 86.6 fL Mean Corpuscular Hemoglobin 29.2 pg Mean Corpuscular Hemoglobin Concent 33.7 g/dl Platelet Count 48 K/uL Mean Platelet Volume 8.8 fL Neutrophils (%) (Auto) 0.1 % Lymphocytes (%) (Auto) 84.5 % Monocytes (%) (Auto) 8.6 % Eosinophils (%) (Auto) 3.4 % Basophils (%) (Auto) 1.7 % Neutrophils # (Auto) 0.00 K/uL Lymphocytes # (Auto) 0.49 K/uL Monocytes # (Auto) 0.05 K/uL Eosinophils # (Auto) 0.02 K/uL Basophils # (Auto) 0.01 K/uL RDW Standard Deviation 47.3 fL RDW Coefficient of Variation 15.1 % Immature Granulocyte % (Auto) 1.7 % Immature Granulocyte # (Auto) 0.01 K/uL Platelet Estimate DECREASED Sodium Level 139 mmol/L Potassium Level 3.4 mmol/L Chloride Level 102 mmol/L Carbon Dioxide Level 30 mmol/L Anion Gap 7.0 mmol/L Blood Urea Nitrogen 7 mg/dl Creatinine 0.60 mg/dl Est Creatinine Clear Calc Drug Dose 117.3 ml/min Estimated GFR () 123.2 Estimated GFR (Non- 106.3 BUN/Creatinine Ratio 11.8 Random Glucose 77 mg/dl Calcium Level 8.4 mg/dl Thyroid Stimulating Hormone (TSH) 0.615 uIu/ml Assessment and Plan Patient is a pleasant 51 y/o female, with PMHx of small cell lung cancer w/ mets to brain and bone, SIADH, DVT, and GERD. Small cell lung cancer w/ mets to brain and bone, pancytopenia, hemoptysis: - O2 SAT 94% RA - CXR ?PNA- IV Cefepime for prophylaxis pending cultures/oncology input - Neutropenic precautions - BCx, UCX - Transfuse 2 unit PRBCs and 2 unit platelets- follow CBC and transfuse PRN - Continue Oxycodone PRN for pain management - Consult hematology/oncology, appreciate recommendations- follows w/ Dr. Joey Henry h/o DVT: - Hold Lovenox SQ injections due to pancytopenia - Discussed case w/ vascular surgery- is not a candidate for a filter at this time- once things stabilize, recommend restarting anticoagulation SIADH- follows w/ Dr. Melo: - Follows 54 oz fluid restriction - Continue Sodium tablets 1 gm BID GERD: Protonix daily DVT prophylaxis: Contraindicated due to pancytopenia Code status: LEVEL I, FULL Dispo: From home, lives w/ - PT/OT and CM consulted Continued [facility] stay due to: multiple IV medications needed Discharge planning: home
[2017-07-13 04:12] VITALS: BP 94/62; PULSE 74; TEMP 37; O2SAT 93
[2017-07-13 06:46] LABS: CALCIUM 8.9 mg/dl (8.5-10.1); CREATININE 0.72 mg/dl (0.60-1.20); POTASSIUM 3.8 mmol/L (3.5-5.1)
[2017-07-13 06:50] LABS: HEMATOCRIT 28.5 % (37-47); HEMOGLOBIN 9.6 g/dL (12.0-16.0); MEAN CELL VOLUME 87.2 fL (80-100); MEAN CORPUSCULAR HEMOGLOBIN 29.4 pg (25-34); MEAN CORPUSCULAR HGB CONC 33.7 g/dl (32-36); MEAN PLATELET VOLUME 9.3 fL (7.4-10.4); PLATELET COUNT 43 K/uL (130-400); RED CELL DISTRIBUTION WIDTH CV 15.4 % (11.5-14.5); RED CELL DISTRIBUTION WIDTH SD 48.4 fL (36.4-46.3); WHITE BLOOD COUNT 1.12 K/uL (4.8-10.8)
[2017-07-13 08:02] VITALS: BP 90/60; PULSE 67; TEMP 37; O2SAT 97
[2017-07-13] MEDS: SODIUM CHLORIDE 1 GM TAB PO SCH ×2 (08:16→18:08)
[2017-07-13] MEDS: PANTOprazole SOD 40 MG TAB PO SCH (08:16)
[2017-07-13] MEDS: OXYCODONE HCL 10 MG TABCR (OXYCONTIN) PO SCH ×2 (08:17→20:35)
[2017-07-13] MEDS: CEFEPIME IV 2,000 MG in SYRINGE 7.5 ML IV SCH ×2 (08:17→18:08)
--- NOTE | 2017-07-13 09:20 | Progress Note ---
Subjective Date of Service: Jul 13, 2017. Subjective Pt evaluation today including: conversation w/ patient, physical exam, chart review, lab review, review of studies, conversation w/ sap pp consultant Voiding: no voiding problems patient is seen and examined by me. pt denies cp, sob, dizziness,palpitation and loc. Pt denies blurry vision and headache. Pt feels good. 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 Status: Acute (4) Neutropenia Status: Acute (5) Pneumonia Status: Acute (6) Thrombocytopenia Status: Acute Review of Systems All Other Systems: Reviewed and Negative Medications Medications (Trade) Dose Ordered Sig/Ayanna Route Start Time Stop Time Status Last Admin Dose Admin Potassium Chloride (Klor-Con Tab) 20 meq NOW STAT PO 07/12/17 11:18 07/12/17 11:29 DC 07/12/17 12:56 20 MEQ Objective Vital Signs Date Time Temp Pulse Resp B/P (MAP) Pulse Ox O2 Delivery O2 Flow Rate FiO2 07/13/17 08:02 37.0 67 18 90/60 (70) 97 07/13/17 04:12 37.0 74 18 94/62 (73) 93 Room Air 07/13/17 04:00 Room Air 07/13/17 00:00 Room Air 07/12/17 23:21 36.8 86 16 105/73 (84) 94 Room Air 07/12/17 20:00 Room Air 07/12/17 19:42 36.7 72 16 93/59 (70) 94 Room Air 07/12/17 16:40 36.9 76 18 98/66 (77) 96 07/12/17 16:00 Room Air 07/12/17 12:00 Room Air 07/12/17 11:44 36.5 75 16 95/62 (73) 95 Room Air 07/12/17 09:20 Room Air Physical Exam General Appearance: no apparent distress Eyes: EOMI Neck: supple, no adenopathy Respiratory/Chest: lungs clear Cardiovascular: regular rate, rhythm, no edema, no gallop, no murmur Neurologic/Psychiatric: no motor/sensory deficits, alert, normal mood/affect, oriented x 3 Skin: no rash Lymphatic: no adenopathy Laboratory Results Last 24 Hours Test 2/4/18 05:49 White Blood Count 1.12 K/uL Red Blood Count 3.27 M/uL Hemoglobin 9.6 g/dL Hematocrit 28.5 % Mean Corpuscular Volume 87.2 fL Mean Corpuscular Hemoglobin 29.4 pg Mean Corpuscular Hemoglobin Concent 33.7 g/dl Platelet Count 43 K/uL Mean Platelet Volume 9.3 fL RDW Standard Deviation 48.4 fL RDW Coefficient of Variation 15.4 % Neutrophils % (Manual) 3.5 % Lymphocytes % (Manual) 89.5 % Monocytes % (Manual) 3.5 % Basophils % (Manual) 2.6 % Myelocytes % 0.9 % Neutrophils # (Manual) 0.04 K/uL Total Absolute Neutrophils 0.04 K/uL Lymphocytes # (Manual) 1.00 K/uL Total Absolute Lymphocytes 1.00 K/uL Monocytes # (Manual) 0.04 K/uL Basophils # (Manual) 0.03 K/uL Myelocytes # 0.01 K/uL Toxic Granulation 2+ Large Platelets 1+ Sodium Level 139 mmol/L Potassium Level 3.8 mmol/L Chloride Level 103 mmol/L Carbon Dioxide Level 31 mmol/L Anion Gap 5.0 mmol/L Blood Urea Nitrogen 6 mg/dl Creatinine 0.72 mg/dl Est Creatinine Clear Calc Drug Dose 89.7 ml/min Estimated GFR () 113.2 Estimated GFR (Non- 97.7 BUN/Creatinine Ratio 7.6 Random Glucose 80 mg/dl Calcium Level 8.9 mg/dl Assessment and Plan Patient is a pleasant 51 y/o female, with PMHx of small cell lung cancer w/ mets to brain and bone, SIADH, DVT, and GERD. Small cell lung cancer w/ mets to brain and bone, pancytopenia, hemoptysis: - hemoptysis resolved - O2 SAT 97% RA - CXR ?PNA- IV Cefepime. blood culture negative x 2 - Neutropenic precautions - UCX not collected - Transfuse 2 unit PRBCs and 2 unit platelets- follow CBC and transfuse PRN -- hgb, and wbc improved -- plt slight down. - Continue Oxycodone PRN for pain management - Consult hematology/oncology, appreciate recommendations- follows w/ Dr. Joey Henry h/o DVT: - Hold Lovenox SQ injections due to pancytopenia - Discussed case w/ vascular surgery- is not a candidate for a filter at this time- once things stabilize, recommend restarting anticoagulation SIADH- follows w/ Dr. Melo: Na today 139 - Follows 54 oz fluid restriction - Continue Sodium tablets 1 gm BID GERD: Protonix daily DVT prophylaxis: Contraindicated due to pancytopenia Code status: LEVEL I, FULL Dispo: From home, lives w/ - PT/OT and CM consulted Continued [facility] stay due to: multiple IV medications needed Discharge planning: home
--- NOTE | 2017-07-13 10:57 | Hematology/Oncology Prog Note ---
Hematology/Onc Progress Note Date of Service Jul 13, 2017. Diagnoses Extensive stage small cell lung carcinoma Pancytopenia secondary to chemotherapy and/or marrow involvement Medications Medications Administered Medications (Trade) Dose Ordered Sig/Ayanna Route Start Time Stop Time Status Last Admin Dose Admin Cefepime HCl 2000 mg/Syringe 20 ml @ 5 mls/min NOW STAT IV 07/11/17 13:34 07/11/17 13:37 DC 07/11/17 15:04 5 MLS/MIN Oxycodone HCl (Oxycontin Tab) 10 mg Q12 PO 07/11/17 21:00 07/25/17 20:59 07/13/17 08:17 10 MG Sodium Chloride (Sodium Chloride Tab) 1 gm BID17 PO 07/11/17 17:00 08/10/17 16:59 07/13/17 08:16 1 GM Pantoprazole Sodium (Protonix Tab) 40 mg QAM PO 07/12/17 09:00 08/11/17 08:59 07/13/17 08:16 40 MG Cefepime HCl 2000 mg/Syringe 20 ml @ 5 mls/min Q8H IV 07/12/17 00:00 07/14/17 00:00 07/13/17 08:17 5 MLS/MIN Potassium Chloride (Klor-Con Tab) 20 meq NOW STAT PO 07/12/17 11:18 07/12/17 11:29 DC 07/12/17 12:56 20 MEQ Subjective She is really without complaints. She ahs been afebrile. She denies any dizziness. She denies any uncontrolled pain. Review of Systems: Constitutional: Negative for night sweats, or fever Eyes: Negative for event change of vision ENT: Negative for epistaxis, nasal discharge, sore throat, or deafness Cardiovascular: Negative for chest pain, palpitations, dizziness, diaphoresis Respiratory: Negative for new shortness of breath,hemoptysis, or purulent cough Gastrointestinal: Negative for diarrhea, hematemesis, melena, nausea, vomiting , or dyspepsia Integumentary (skin): Negative for rash or jaundice discoloration Neurological: Negative for weakness, seizure activity, headache, or dizziness Lymphatic/Hematologic: Negative for petechiae, bleeding or new adenopathy Musculoskeletal: Negative for new joint or back pain Allergic/Immunologic: Negative for unusual rash or pruritis. Vital Signs Vital Signs Past 12 Hours Date Time Temp Pulse Resp B/P (MAP) Pulse Ox O2 Delivery O2 Flow Rate FiO2 07/13/17 08:02 37.0 67 18 90/60 (70) 97 07/13/17 08:00 Room Air 07/13/17 04:12 37.0 74 18 94/62 (73) 93 Room Air 07/13/17 04:00 Room Air 07/13/17 00:00 Room Air 07/12/17 23:21 36.8 86 16 105/73 (84) 94 Room Air Physical Exam Constitutional: vitals are stable. alpoecic Eyes: Eyes are DENISE EOMI without conjuctival erythema or icterus. ENT: External examination was negative for masses. Neck: Negative for masses or palpable thyromegaly Respiratory: Lung sounds were generally clear bilaterally Cardiovascular: Heart was RRR without significant murmur, gallops aoe rubs Gastrointestinal: Fullness in the right upper quadrant of the abdomen and is nontender Lymphatic system: there was no palpable peripheral lymphadenopathy Musculoskeletal System: The musculoskeletal system seemed concordant with age. Skin: The skin was negative for jaundice. Neurologic exam: The exam was negative for any focal findings. Deep tendon reflexes were equal and symmetrical. Psychiatric exam: Was essentially negative with normal mood and effect. Breast exam: Not done Extremities: trace bilateral edema with occasional what appears to be rather old ecchymosis Laboratory Last 24 Hours Test 07/13/17 05:49 White Blood Count 1.12 K/uL Red Blood Count 3.27 M/uL Hemoglobin 9.6 g/dL Hematocrit 28.5 % Mean Corpuscular Volume 87.2 fL Mean Corpuscular Hemoglobin 29.4 pg Mean Corpuscular Hemoglobin Concent 33.7 g/dl Platelet Count 43 K/uL Mean Platelet Volume 9.3 fL RDW Standard Deviation 48.4 fL RDW Coefficient of Variation 15.4 % Neutrophils % (Manual) 3.5 % Lymphocytes % (Manual) 89.5 % Monocytes % (Manual) 3.5 % Basophils % (Manual) 2.6 % Myelocytes % 0.9 % Neutrophils # (Manual) 0.04 K/uL Total Absolute Neutrophils 0.04 K/uL Lymphocytes # (Manual) 1.00 K/uL Total Absolute Lymphocytes 1.00 K/uL Monocytes # (Manual) 0.04 K/uL Basophils # (Manual) 0.03 K/uL Myelocytes # 0.01 K/uL Toxic Granulation 2+ Large Platelets 1+ Sodium Level 139 mmol/L Potassium Level 3.8 mmol/L Chloride Level 103 mmol/L Carbon Dioxide Level 31 mmol/L Anion Gap 5.0 mmol/L Blood Urea Nitrogen 6 mg/dl Creatinine 0.72 mg/dl Est Creatinine Clear Calc Drug Dose 89.7 ml/min Estimated GFR () 113.2 Estimated GFR (Non- 97.7 BUN/Creatinine Ratio 7.6 Random Glucose 80 mg/dl Calcium Level 8.9 mg/dl Assessment & Plan Extensive stage small cell lung carcinoma. Pancytopenia in large part due to chemotherapy that was given between July 04 to the . White cell number today appears to be recovering. Platelet counts also better and stable ( greater than 40,000). Once the platelets climbed to 50,000 and Lovenox can resume. She seems quite stable. I should point out that her blood pressure now is very similar to blood pressure recordings from her May's admission.
[2017-07-13] MEDS: ONDANSETRON INJ 2 MG/ML 2 ML VIAL IV PRN (15:11)
[2017-07-13 15:21] VITALS: BP 92/60; PULSE 69; TEMP 36.6; O2SAT 94
[2017-07-13 19:04] VITALS: BP 90/58; PULSE 70; TEMP 36.5; O2SAT 93
[2017-07-13 23:30] VITALS: BP 93/57; PULSE 67; TEMP 37; O2SAT 94
[2017-07-14] MEDS: CEFEPIME IV 2,000 MG in SYRINGE 7.5 ML IV SCH ×2 (01:10→09:08)
[2017-07-14 04:07] VITALS: BP 92/57; PULSE 79; TEMP 37.1; O2SAT 91
[2017-07-14] MEDS: ONDANSETRON INJ 2 MG/ML 2 ML VIAL IV PRN ×2 (07:23→12:46)
[2017-07-14 07:45] VITALS: BP 103/66; PULSE 66; TEMP 36.4; O2SAT 96
[2017-07-14 08:08] LABS: HEMATOCRIT 29.5 % (37-47); HEMOGLOBIN 9.9 g/dL (12.0-16.0); MEAN CELL VOLUME 88.3 fL (80-100); MEAN CORPUSCULAR HEMOGLOBIN 29.6 pg (25-34); MEAN CORPUSCULAR HGB CONC 33.6 g/dl (32-36); MEAN PLATELET VOLUME 9.2 fL (7.4-10.4); NUCLEATED RED BLOOD CELL ABS 0.05 K/uL (0-0); PLATELET COUNT 38 K/uL (130-400); RED CELL DISTRIBUTION WIDTH CV 15.1 % (11.5-14.5); WHITE BLOOD COUNT 1.74 K/uL (4.8-10.8)
[2017-07-14 08:18] LABS: CALCIUM 8.9 mg/dl (8.5-10.1); CREATININE 0.69 mg/dl (0.60-1.20); POTASSIUM 3.5 mmol/L (3.5-5.1)
[2017-07-14] MEDS: SODIUM CHLORIDE 1 GM TAB PO SCH (09:08)
[2017-07-14] MEDS: PANTOprazole SOD 40 MG TAB PO SCH (09:10)
[2017-07-14] MEDS: OXYCODONE HCL 10 MG TABCR (OXYCONTIN) PO SCH (09:11)
--- NOTE | 2017-07-14 10:11 | Discharge Instructions ---
Discharge Instructions Date of Service Jul 14, 2017. Admission Reason for Admission: Neutropenia; Thrombocytopenia Discharge Discharge Diagnosis / Problem: low blood counts - cancer and chemotherapy related Discharge Goals Goal(s): Diagnostic testing, Therapeutic intervention Activity Recommendations Activity Limitations: resume your previous activity (use caution with exposure - have everyone hand wash when they enter your house, and use hand corporate security officer frequently throughout the day) . Instructions / Follow-Up Instructions / Follow-Up low blood counts -Dr Awad noted that with what you're going through this is not at all unexpected. -your counts are showing improvement, we'll want to keep an eye on them closely - next CBC to be on 07/16/17 blood clot -on your med reconciliation the lovenox (enoxaparin, blood thinner) was written to continue - however, we'll want you to hold off on this until your platelet counts are over 50. the clot is still there, but far less "threatening" than it was when first diagnosed. ideally we'd have you continue the blood thinner still, but with the platelets being low right now risk of bleeding outweighs the risk of the clot. -if you were to develop chest pain (usually feeling like you pulled a rib muscle or got kicked) and shortness of breath, please seek attention right away , as that would indicate possible clot moving to the lungs - but this is fairly unlikely to occur at this point Current Hospital Diet Patient's current hospital diet: Regular Diet Discharge Diet Recommended Diet: Regular Diet Pending Studies Studies pending at discharge: no Medical Emergencies . Who to Call and When: Medical Emergencies: If at any time you feel your situation is an emergency, please call 911 immediately. . Non-Emergent Contact Non-Emergency issues call your: Primary Care Provider, Oncologist . . "Provider Documentation" section prepared by Mani Broderick. . VTE Core Measure Inpt VTE Proph given/why not?: Contraindicated
[2017-07-14 11:00] VITALS: BP 88/60; PULSE 76; TEMP 36.3
[2017-07-14 12:04] VITALS: BP 103/66; PULSE 66; TEMP 36.4; O2SAT 96
--- NOTE | 2017-07-14 17:39 | Discharge Summary ---
Discharge Summary Date of Service Jul 14, 2017. Discharge Summary Admission Date: Jul 11, 2017 at 14:58 Discharge Date: Jul 14, 2017 Discharge Disposition: Home Principal Diagnosis: pancytopenia, related to cancer/chemotherapy Consultations: heme/onc Medication Reconciliation Continued Medications: Enoxaparin Sodium (Lovenox) 80 Mg/0.8 Ml Inj 70 MG SQ Q12 PT USES .7ML TO MAKE 70MG DOSE Omeprazole (Prilosec) 20 Mg Capcr 20 MG PO DAILY, CAP Oxycodone HCl (Oxycontin) 10 Mg Tabcr 10 MG PO Q12 for 15 Days, #30 Oxycodone HCl (Oxycodone HCl) 5 Mg Tab 5 MG PO Q4H PRN for Pain for 15 Days, #60 TAB Sodium Chloride (Sodium Chloride) 1 Gm Tab 1 GM PO BID17 for 15 Days, #30 TAB Hospital Course 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 - Continue Oxycodone PRN for pain management - Consulted hematology/oncology, appreciate recommendations- follows w/ Dr. Joey Henry - repeat CBC 2-3 days as outpt, resume lovenox once plt > 50 h/o DVT: - Holding Lovenox SQ injections due to pancytopenia - prior hospitalist discussed case w/ vascular surgery- is not a candidate for a filter at this time- once things stabilize, recommend restarting anticoagulation (heme/onc notes plt around 50 would be reasonable to restart) SIADH- follows w/ Dr. Melo - Follows fluid restriction - Continue Sodium tablets 1 gm BID GERD: Protonix daily DVT prophylaxis: Contraindicated due to pancytopenia stable for discharge to home oncology already scheduled for next week Total Time Spent: Greater than 30 minutes This includes examination of the patient, discharge planning, medication reconciliation, and communication with other providers. Discharge Instructions Please refer to the electronic Patient Visit Report (Discharge Instructions) for additional information. Additional Copies To Mic Awad MD
== END 2017-07-14 13:20 | disposition home health service (06) | DRG 809 ==
LOC: C.EDB 11:13 → C.2T 14:58 → ENRESERV 15:18
PROVIDERS: ADMIT Internal Medicine; ATTEND Family Medicine
DX: D61.810 Antineoplastic chemotherapy induced pancytopenia (principal); C79.31 Secondary malignant neoplasm of brain; R04.2 Hemoptysis; C79.51 Secondary malignant neoplasm of bone; E22.2 Syndrome of inappropriate secretion of antidiuretic hormone; C34.90 Malignant neoplasm of unspecified part of unspecified bronchus or lung; D68.32 Hemorrhagic disorder due to extrinsic circulating anticoagulants; T45.515A Adverse effect of anticoagulants, initial encounter; E78.5 Hyperlipidemia, unspecified; Z83.3 Family history of diabetes mellitus; Z82.49 Family history of ischemic heart disease and other diseases of the circulatory system; Z87.891 Personal history of nicotine dependence; K21.9 Gastro-esophageal reflux disease without esophagitis; Z92.3 Personal history of irradiation; Z86.718 Personal history of other venous thrombosis and embolism; Y92.019 Unspecified place in single-family (private) house as the place of occurrence of the external cause

== ENCOUNTER → 2017-07-17 | Outpatient (CLI) | payer OTHER ==
[~2017-07-17] MED LIST changes: +ENOX1INJ11 SQ; +ONDA8TAB6 PO; -[UNRECOGNIZED DRUG - OTHER] SQ
[2017-07-17 13:30] LABS: HEMATOCRIT 29.3 % (37-47); HEMOGLOBIN 9.6 g/dL (12.0-16.0); MEAN CELL VOLUME 89.9 fL (80-100); MEAN CORPUSCULAR HEMOGLOBIN 29.4 pg (25-34); MEAN CORPUSCULAR HGB CONC 32.8 g/dl (32-36); NUCLEATED RED BLOOD CELL ABS 0.25 K/uL (0-0); RED CELL DISTRIBUTION WIDTH CV 15.2 % (11.5-14.5); RED CELL DISTRIBUTION WIDTH SD 49.1 fL (36.4-46.3); WHITE BLOOD COUNT 5.67 K/uL (4.8-10.8)
[2017-07-17 13:51] LABS: MEAN PLATELET VOLUME 10.3 fL (7.4-10.4); PLATELET COUNT 98 K/uL (130-400)
== END | disposition home or self-care (01) ==
LOC: C.LAB1850 12:42
PROVIDERS: ATTEND Internal Medicine Hematology & Oncology
DX: D61.818 Other pancytopenia (principal)

== ENCOUNTER → 2017-07-17 | Outpatient (CLI) | payer OTHER ==
[2017-07-17 13:06] VITALS: BP 94/58; PULSE 83; TEMP 36.7; O2SAT 98
--- NOTE | 2017-07-17 16:01 | Radiation Oncology Follow-Up ---
Radiation Oncology Follow-Up Date of Visit Jul 17, 2017. Reason For Visit One-month follow-up Radiation Completion Date WBRT - 06/12/17 Diagnosis (1) Lung cancer Onset Date: 05/26/2017 Location: brain metastasis Stage: IV Permanent Comment: Final path pending - preliminary pathology is small cell lung cancer Final path report showed Small Cell Status post completion of palliative radiation therapy to the brain. Treatment was completed 06/12/2017. She received 3000 cGy. Systemic chemotherapy with carboplatin and Etoposide Last Edited By: Marta Lam on Jul 17, 2017 15:50 History of Present Illness Ms. Sanchez is a 51-year-old female with no significant past medical history who recently presented with exertional dyspnea that has progressively increased. The patient was eventually seen by her primary care physician who noted some wheezing in her lungs. The patient was also complaining of right shoulder pain and did have a x-ray of the right shoulder on 05/22/2017 which revealed no evidence of an acute process involving the right shoulder however a did reveal a potential enlargement involving the right hilum. The patient did have a CT of the thorax completed on 05/22/2017 which revealed: "IMPRESSION: 1. Right upper lobe mass measuring 4.3 cm. 2. Mass continues to involve the right hilum as well as mid mediastinum with dimensions of keisha and hilar/mediastinal pathology measuring from 2.5 to 6.3 cm. 3. Mass compromises the right hilar arterial vasculature as well as upper lobe right mainstem bronchus. 4. Additional nodular density right lung base as well as right paravertebral region at T4-T5. 6. Hepatic metastatic disease." The patient was then sent to the emergency room and was admitted to [facility]. The patient did have a MRI of the cervical spine completed on 05/24/2017 which revealed: "IMPRESSION: 1. Multiple metastatic lesions seen scattered throughout the cervical and thoracic spine. 2. No significant central canal narrowing within the cervical spine. No evidence for epidural involvement of metastatic disease at this time within the cervical spine. 3. However, there is right-sided paraspinal extension of the T3 lesion as described above. This extends into the right T2- T3 and T3-T4 neural foramen resulting in neural foraminal narrowing. This also extends into the right epidural space at T3. However, there is no significant neural foraminal narrowing at this time. 4. No fracture or subluxation within the cervical spine." The patient also had an MRI of the brain on 05/24/2017 which revealed: "1. Multiple enhancing lesions within the brain consistent with metastatic disease. 2. The dominant 2.8 x 2.0 x 1.7 cm lesion is located at the sellar/ suprasellar location. This results in mild mass effect along the third ventricle and optic chiasm. The ventricles are normal in size at this time without evidence for hydrocephalus. 3. Subcentimeter clival lesion likely represents metastatic disease." The patient had an MRI of the lumbar spine on 05/24/2017 which revealed: "1. Extensive osseous metastatic disease seen throughout the lumbar spine and sacrum. 2. There is 4 mm of epidural involvement at the L1 level. However, there is no significant central canal narrowing at this level. 3. No fractures within the lumbar spine." The patient underwent a bronchoscopy by Dr. Giordano on 05/26/2017 which revealed: "Right upper lobe: RB3,RB2 notably occluded circumferentially with external compression, diffuse erythema external compression noted and parenchymal changes. Secondary jerel: Diffuse splaying of the secondary jerel with notable erythema and parenchymal changes. Bronchus intermedius: Erythema noted along the lateral border but no signs of infiltrative process." Dr. Giordano did perform a biopsy of the station 4R lymph node and the preliminary diagnosis favors small cell lung carcinoma. We have been asked to evaluate the patient for consideration of radiation therapy to the brain. Medical oncology consultation is still pending. Path report did reveal small cell carcinoma of the lung. She underwent palliative radiation therapy to the brain. This was completed 06/12/2017. She received 3000 Interim History Over the past month she has now started chemotherapy. She is tolerating this well. She has no issues with nausea or vomiting. She was hospitalized due to low blood counts. She required 2 units of packed red blood cells as well as platelets. She feels her energy level is doing well. She continues to restrict her intake of fluids due to the low sodium. When hospitalized the sodium was checked and is now back in the normal range. With restricting fluid she has also restricting food intake. She has lost approximately 18 pounds. Allergies Coded Allergies: No Known Allergies (Unverified , 07/11/17) Home Medications Scheduled Enoxaparin Sodium (Lovenox), 70 MG SQ Q12 Omeprazole (Prilosec), 20 MG PO DAILY Ondansetron Hcl (Zofran), 8 MG PO TID Oxycodone HCl (Oxycontin), 10 MG PO Q12 Sodium Chloride (Sodium Chloride), 1 GM PO BID17 Scheduled PRN Oxycodone HCl (Oxycodone HCl), 5 MG PO Q4H PRN for Pain Review of Systems Gastrointestinal: Symptoms: Nausea, Vomiting GI Comments: Gets nausea - contolled with zofran, vomits once in a while, fluid restrict Oral: Symptoms: Scant Saliva/Dry Mouth Other Oral Symptoms: Trouble swallowing dry foods, sticks to soft foods Respiratory: Symptoms: WNL Urinary: Symptoms: WNL Skin: Symptoms: No Problems Other Skin Symptoms: Dry skin on scalp - uses vaseline intensive care after bathing Additional Notes: She completed a distress management report and answered "no" to all questions. Physical Exam Vital Signs Date Time Temp Pulse Resp B/P (MAP) Pulse Ox O2 Delivery O2 Flow Rate FiO2 07/17/17 13:06 36.7 83 16 94/58 98 ECOG Performance Status: 0 Fatigue: Mild General Appearance: + thin, + pertinent finding (alopecia) Eyes: normal inspection, EOMI ENT: normal ENT inspection, hearing grossly normal Neck: no adenopathy, thyroid normal Respiratory/Chest: lungs clear, no respiratory distress, no accessory muscle use Cardiovascular: regular rate, rhythm, no gallop, no murmur Extremities: no pedal edema Neurologic/Psychiatric: no motor/sensory deficits, alert, normal mood/affect Skin: warm/dry Pain Management Patient Reports Pain: No Pain Management Plan She currently denies pain. Pain management is surgery primary care and medical oncology. Laboratory Laboratory Results: were reviewed Laboratory Comments: Patient was shown her most recent laboratory findings. Pathology Pathology Results: not applicable Imaging Imaging Studies: not applicable Assessment & Plan Plan: Patient is also seen today by Dr. Henao. We have discussed with her food supplements. We asked her to call her heat plant specialist to discuss the fluid restriction. She continues follow-up with medical oncology. A follow-up MRI of the brain will be scheduled in 2 months. This will follow the [facility] protocol. We will have her return to our office following the recheck MRI. She may call our office if she has any questions or concerns in the interim. Assessment & Plan (Attending) I agree with note created by Marta Lam PA-C. I reviewed the patient's chart and information with her. I have examined and evaluated the patient. I reviewed relevant clinical information and answered the patient's and/or family' s questions. ENGINEERING MGR Total Time In Follow-Up I spent 15 minutes speaking to the patient performing examination. I spent 15 minutes reviewing information in completing this note. Total Time (Attending) In Follow-Up I spent 15 minutes examining and counseling the patient. ENGINEERING MGR Copy To Mic Garcia M.D. (STEPHAN); Mic Awad MD
== END | disposition home or self-care (01) ==
LOC: C.ONC 13:00
PROVIDERS: ATTEND Radiology Radiation Oncology
DX: Z08 Encounter for follow-up examination after completed treatment for malignant neoplasm (principal); Z92.3 Personal history of irradiation; Z85.118 Personal history of other malignant neoplasm of bronchus and lung

== ENCOUNTER → 2017-07-24 | Outpatient (CLI) | payer OTHER ==
[2017-07-24 18:51] LABS: BASO % 2.2 %; HEMATOCRIT 30.8 % (37-47); HEMOGLOBIN 9.9 g/dL (12.0-16.0); IG# 0.08 K/uL (0.00-0.02); LYMPH % 23.7 %; MEAN CELL VOLUME 90.3 fL (80-100); MEAN CORPUSCULAR HGB CONC 32.1 g/dl (32-36); MEAN PLATELET VOLUME 8.9 fL (7.4-10.4); MONO ABS # 0.65 K/uL (0.11-0.59); NEUT % 58.4 %; NEUT ABS # 2.72 K/uL (1.4-6.5); NUCLEATED RED BLOOD CELL ABS 0.17 K/uL (0-0); PLATELET COUNT 358 K/uL (130-400); RED CELL DISTRIBUTION WIDTH CV 16.8 % (11.5-14.5); RED CELL DISTRIBUTION WIDTH SD 50.5 fL (36.4-46.3); WHITE BLOOD COUNT 4.65 K/uL (4.8-10.8)
[2017-07-24 18:59] LABS: ALBUMIN 2.9 gm/dl (3.4-5.0); ALT/SGPT 15 U/L (12-78); AST/SGOT 20 U/L (15-37); BLOOD UREA NITROGEN 6 mg/dl (7-18); CALCIUM 8.9 mg/dl (8.5-10.1); CARBON DIOXIDE 30 mmol/L (21-32); CREATININE 0.81 mg/dl (0.60-1.20); GLUCOSE 88 mg/dl (70-99); POTASSIUM 3.9 mmol/L (3.5-5.1); SODIUM 135 mmol/L (136-145)
[2017-07-24 19:02] LABS: ALKALINE PHOSPHATASE 158 U/L (45-117); TOTAL PROTEIN 6.4 gm/dl (6.4-8.2)
== END | disposition home or self-care (01) ==
LOC: C.LABSPEC 18:30
PROVIDERS: ATTEND Internal Medicine Hematology & Oncology
DX: C34.11 Malignant neoplasm of upper lobe, right bronchus or lung (principal)

== ENCOUNTER → 2017-08-18 | Outpatient (CLI) | payer OTHER ==
[~2017-08-18] MED LIST changes: +ONDA-170 PO; -ONDA8TAB6 PO
[2017-08-18 18:49] LABS: ALBUMIN 3.2 gm/dl (3.4-5.0); ALT/SGPT 18 U/L (12-78); BLOOD UREA NITROGEN 10 mg/dl (7-18); CALCIUM 8.5 mg/dl (8.5-10.1); CARBON DIOXIDE 28 mmol/L (21-32); CREATININE 0.71 mg/dl (0.60-1.20); GLUCOSE 80 mg/dl (70-99); POTASSIUM 3.6 mmol/L (3.5-5.1); SODIUM 135 mmol/L (136-145)
[2017-08-18 18:52] LABS: ALKALINE PHOSPHATASE 156 U/L (45-117); AST/SGOT 14 U/L (15-37); TOTAL PROTEIN 6.2 gm/dl (6.4-8.2)
[2017-08-18 20:35] LABS: HEMOGLOBIN 9.2 g/dL (12.0-16.0); MEAN CELL VOLUME 89.7 fL (80-100); MEAN CORPUSCULAR HEMOGLOBIN 29.5 pg (25-34); MEAN CORPUSCULAR HGB CONC 32.9 g/dl (32-36); MEAN PLATELET VOLUME 9.3 fL (7.4-10.4); NUCLEATED RED BLOOD CELL ABS 0.04 K/uL (0-0); PLATELET COUNT 341 K/uL (130-400); RED CELL DISTRIBUTION WIDTH CV 18.9 % (11.5-14.5); WHITE BLOOD COUNT 1.85 K/uL (4.8-10.8)
[2017-08-18 20:36] LABS: BASO % 1.1 %; BASO ABS # 0.02 K/uL (0-0.2); EOS % 2.7 %; EOS ABS # 0.05 K/uL (0-0.5); IG# 0.01 K/uL (0.00-0.02); LYMPH % 51.4 %; LYMPH ABS # 0.95 K/uL (1.2-3.4); MONO % 24.3 %; MONO ABS # 0.45 K/uL (0.11-0.59); NEUT ABS # 0.37 K/uL (1.4-6.5)
== END | disposition home or self-care (01) ==
LOC: C.LABSPEC 18:05
PROVIDERS: ATTEND Internal Medicine Hematology & Oncology
DX: C34.11 Malignant neoplasm of upper lobe, right bronchus or lung (principal)

== ENCOUNTER → 2017-08-25 | Outpatient (CLI) | payer OTHER ==
[2017-08-25 18:20] LABS: BASO % 1.2 %; BASO ABS # 0.04 K/uL (0-0.2); EOS % 0.6 %; EOS ABS # 0.02 K/uL (0-0.5); HEMOGLOBIN 10.8 g/dL (12.0-16.0); IG# 0.02 K/uL (0.00-0.02); LYMPH % 25.2 %; LYMPH ABS # 0.82 K/uL (1.2-3.4); MEAN CELL VOLUME 90.7 fL (80-100); MEAN CORPUSCULAR HEMOGLOBIN 29.7 pg (25-34); MEAN CORPUSCULAR HGB CONC 32.7 g/dl (32-36); MEAN PLATELET VOLUME 9.4 fL (7.4-10.4); MONO % 15.3 %; NEUT % 57.1 %; NEUT ABS # 1.86 K/uL (1.4-6.5); PLATELET COUNT 308 K/uL (130-400); RED CELL DISTRIBUTION WIDTH CV 18.8 % (11.5-14.5); RED CELL DISTRIBUTION WIDTH SD 61.4 fL (36.4-46.3); WHITE BLOOD COUNT 3.26 K/uL (4.8-10.8)
[2017-08-25 18:29] LABS: ALBUMIN 3.3 gm/dl (3.4-5.0); ALT/SGPT 19 U/L (12-78); AST/SGOT 13 U/L (15-37); BLOOD UREA NITROGEN 7 mg/dl (7-18); CALCIUM 8.9 mg/dl (8.5-10.1); CARBON DIOXIDE 27 mmol/L (21-32); CREATININE 0.85 mg/dl (0.60-1.20); GLUCOSE 144 mg/dl (70-99); SODIUM 137 mmol/L (136-145)
[2017-08-25 18:31] LABS: ALKALINE PHOSPHATASE 150 U/L (45-117); TOTAL PROTEIN 6.6 gm/dl (6.4-8.2)
== END | disposition home or self-care (01) ==
LOC: C.LABSPEC 17:59
PROVIDERS: ATTEND Internal Medicine Hematology & Oncology
DX: C34.11 Malignant neoplasm of upper lobe, right bronchus or lung (principal)

== ENCOUNTER → 2017-09-15 | Outpatient (CLI) | payer OTHER ==
[2017-09-15 18:45] LABS: ALBUMIN 3.4 gm/dl (3.4-5.0); ALT/SGPT 15 U/L (12-78); BLOOD UREA NITROGEN 8 mg/dl (7-18); CALCIUM 8.6 mg/dl (8.5-10.1); CARBON DIOXIDE 28 mmol/L (21-32); CREATININE 0.73 mg/dl (0.60-1.20); GLUCOSE 84 mg/dl (70-99); POTASSIUM 3.7 mmol/L (3.5-5.1); SODIUM 135 mmol/L (136-145)
[2017-09-15 18:48] LABS: ALKALINE PHOSPHATASE 112 U/L (45-117); AST/SGOT 14 U/L (15-37); TOTAL PROTEIN 6.1 gm/dl (6.4-8.2)
[2017-09-15 18:55] LABS: HEMATOCRIT 28.6 % (37-47); HEMOGLOBIN 9.4 g/dL (12.0-16.0); MEAN CELL VOLUME 92.9 fL (80-100); MEAN CORPUSCULAR HEMOGLOBIN 30.5 pg (25-34); MEAN CORPUSCULAR HGB CONC 32.9 g/dl (32-36); MEAN PLATELET VOLUME 9.8 fL (7.4-10.4); PLATELET COUNT 281 K/uL (130-400); RED CELL DISTRIBUTION WIDTH CV 19.4 % (11.5-14.5); RED CELL DISTRIBUTION WIDTH SD 65.4 fL (36.4-46.3); WHITE BLOOD COUNT 1.75 K/uL (4.8-10.8)
[2017-09-15 19:19] LABS: BASO % 0.6 %; BASO ABS # 0.01 K/uL (0-0.2); EOS % 2.3 %; EOS ABS # 0.04 K/uL (0-0.5); LYMPH % 33.7 %; LYMPH ABS # 0.59 K/uL (1.2-3.4); MONO % 29.1 %; MONO ABS # 0.51 K/uL (0.11-0.59); NEUT % 34.3 %
== END | disposition home or self-care (01) ==
LOC: C.LABSPEC 17:56
PROVIDERS: ATTEND Internal Medicine Hematology & Oncology
DX: Z00.00 Encounter for general adult medical examination without abnormal findings (principal); E87.1 Hypo-osmolality and hyponatremia; C34.11 Malignant neoplasm of upper lobe, right bronchus or lung

== ENCOUNTER → 2017-09-22 | Outpatient (CLI) | payer OTHER ==
[2017-09-22 18:18] LABS: BASO % 0.6 %; BASO ABS # 0.02 K/uL (0-0.2); EOS % 1.4 %; EOS ABS # 0.05 K/uL (0-0.5); HEMATOCRIT 32.7 % (37-47); HEMOGLOBIN 10.6 g/dL (12.0-16.0); IG# 0.03 K/uL (0.00-0.02); LYMPH % 21.1 %; LYMPH ABS # 0.73 K/uL (1.2-3.4); MEAN CELL VOLUME 94.8 fL (80-100); MEAN CORPUSCULAR HEMOGLOBIN 30.7 pg (25-34); MEAN CORPUSCULAR HGB CONC 32.4 g/dl (32-36); MEAN PLATELET VOLUME 9.5 fL (7.4-10.4); MONO % 16.8 %; MONO ABS # 0.58 K/uL (0.11-0.59); NEUT % 59.2 %; NEUT ABS # 2.05 K/uL (1.4-6.5); PLATELET COUNT 220 K/uL (130-400); RED CELL DISTRIBUTION WIDTH CV 18.4 % (11.5-14.5); RED CELL DISTRIBUTION WIDTH SD 63.1 fL (36.4-46.3); WHITE BLOOD COUNT 3.46 K/uL (4.8-10.8)
[2017-09-22 18:29] LABS: ALBUMIN 3.3 gm/dl (3.4-5.0); ALT/SGPT 18 U/L (12-78); AST/SGOT 14 U/L (15-37); BLOOD UREA NITROGEN 9 mg/dl (7-18); CALCIUM 8.6 mg/dl (8.5-10.1); CARBON DIOXIDE 29 mmol/L (21-32); GLUCOSE 77 mg/dl (70-99); POTASSIUM 3.8 mmol/L (3.5-5.1); SODIUM 135 mmol/L (136-145)
[2017-09-22 18:31] LABS: ALKALINE PHOSPHATASE 109 U/L (45-117); TOTAL PROTEIN 6.4 gm/dl (6.4-8.2)
== END | disposition home or self-care (01) ==
LOC: C.LABSPEC 17:50
PROVIDERS: ATTEND Internal Medicine Hematology & Oncology
DX: C34.11 Malignant neoplasm of upper lobe, right bronchus or lung (principal)

== ENCOUNTER → 2017-10-10 | Outpatient (CLI) | payer OTHER ==
[~2017-10-10] MED LIST changes: +OPTIRAY 320 IV PRN
--- NOTE | 2017-10-10 15:12 | DIAGNOSTIC IMAGING REPORT ---
ABD/PELVIS IV AND ORAL CONT CLINICAL HISTORY: 52 years-old Female presenting with 09/22/17 1320 C= 0.80, lung cancer. TECHNIQUE: Multidetector CT of the abdomen and pelvis was performed after the administration of oral and intravenous contrast. IV contrast: 94 mL of Optiray 320. A dose lowering technique was used consistent with the principles of ALARA (as low as reasonably achievable). COMPARISON: None. CT DOSE (mGy.cm): The estimated cumulative dose is not available. FINDINGS: Professional Application Designer topogram: Unremarkable. Lung bases: Trace emphysema. Normal heart size. No pericardial or pleural effusion. Liver: Normal morphology. Indeterminate 1.5 cm lesion in segment 8 (series 6 image 51). Additional indeterminate 1.3 cm lesion in segment 6 (series 6 image 155). Subcentimeter lesion in the left hepatic lobe (series 6 image 62). Patent hepatic vasculature. Biliary: No intrahepatic or extrahepatic biliary ductal dilatation. Normal gallbladder. Pancreas: Moderately atrophic parenchyma. 2 well-defined hypodense fluid collections noted at the pancreatic tail, one measuring 2.7 cm in diameter and the larger measuring 4.9 cm in diameter. Splenic artery and vein appear patent. Spleen: Normal. Trace perisplenic fluid inferiorly. Adrenal glands: Normal. Kidneys and ureters: Focal atrophy of the lower pole medially in the right kidney as well as at the upper pole medially could suggest reflux nephropathy. No nephrolithiasis. No hydronephrosis. Bladder: Circumferential bladder wall thickening. Pelvic organs: Uterus and ovaries normal. Bowel: Moderate stool burden throughout normal caliber colon. No wall thickening or pericolonic inflammatory change. The appendix is normal. No bowel obstruction. Peritoneal cavity: Small amount of hypodensity fluid or soft tissue between the leaves of the small bowel mesentery (series 6 image 271). No significant free fluid or gas is apparent. Lymph nodes: No enlarged lymph nodes in the abdomen or pelvis. However, the soft tissue associated with the mesentery of the small bowel is indeterminate and lymphoid tissue cannot be excluded. Vasculature: Atherosclerosis of the normal caliber abdominal aorta. IVC patent. Abdominal wall: Small fat-containing umbilical hernia. Musculoskeletal: Diffuse heterogeneity of bone marrow. Compression fracture of L1 evident. IMPRESSION: 1. Diffuse heterogeneity of bone marrow could suggest underlying diffuse metastatic disease. 2. Pathologic compression fracture of L1 is age indeterminate. 3. Multiple (3) indeterminate liver lesions which are suspicious for metastatic disease. 4. Abnormal soft tissue or high density fluid associated with the small bowel mesentery. This could represent a soft tissue mass or metastasis or enlarged lymph node. Less likely this represents hemorrhage. 5. Fluid collections associated with the pancreatic tail. If the patient has a history of pancreatitis, these likely represent pseudocysts. Correlate clinically. If there is no history of pancreatitis, differential considerations include cystic neoplasm though this is felt to be less likely. Electronically signed by: Kamran White M.D. 10/10/2017 3:11 PM Dictated Date/Time: 10/10/2017 2:58 PM
--- NOTE | 2017-10-10 16:01 | DIAGNOSTIC IMAGING REPORT ---
CT OF THE CHEST WITH IV CONTRAST CLINICAL HISTORY: Metastatic small cell cancer. CT for treatment response. COMPARISON STUDY: Chest CT May 22, 2017 and chest radiograph July 17, 2017. TECHNIQUE: Following IV administration of 94 mL of Optiray-320, helical axial images of the chest were obtained. Sagittal and coronal reconstructions were viewed as well as maximal intensity projections on an independent 3-D workstation. A dose lowering technique was utilized adhering to the principles of ALARA. CT DOSE: 484.82 mGy.cm FINDINGS: The mediastinal and right hilar adenopathy shown on exam of May 22, 2017 has resolved. The size of the heart is normal. There is no pericardial effusion. A right internal jugular [id number] is in place. A small left lobe thyroid nodule is present with peripheral calcification. There is moderate emphysema. The irregular lobulated right upper lobe mass has markedly decreased in size since chest CT of May 22, 2017. Multifocal hypodense irregular right upper lobe nodules are noted. The largest component measures 1.3 cm. There is no pneumothorax or pleural effusion. Note is made of innumerable sclerotic skeletal metastases which was not evident on CT of May 22, 2017, including and L1 pathologic fracture through the superior plate with mild loss of height and minimal retropulsion. Central canal is suboptimally assessed by CT but there is no definite epidural extension of tumor. Of note, MRI of the cervical spine of May 24, 2017 did demonstrate skeletal metastatic disease. The abdomen and pelvis will be reported separately. However, metastatic metastatic disease has markedly improved. A 1.8 cm right hepatic dome lesion persists. As previously measured 4.4 cm. A pancreatic tail hypodensity is better depicted on the abdominal CT. Please see that report for further description. IMPRESSION: 1. Resolution of the mediastinal and right hilar adenopathy shown on chest CT May 22, 2017. 2. Marked decrease in size of the irregular right upper lobe mass with small residual right upper lobe nodules. 3. Innumerable skeletal metastases with a new L1 pathologic compression fracture. Prior chest CT of May 22, 2017 did not demonstrate skeletal lesions; however, lesions were evident on MRI of the cervical spine from May 24, 2017. Electronically signed by: Krishan Estevez M.D. 10/10/2017 4:00 PM Dictated Date/Time: 10/10/2017 3:09 PM
== END | disposition home or self-care (01) ==
LOC: C.CTS 14:26
PROVIDERS: ATTEND Internal Medicine Hematology & Oncology
DX: C34.11 Malignant neoplasm of upper lobe, right bronchus or lung (principal); C79.51 Secondary malignant neoplasm of bone; M48.56XA Collapsed vertebra, not elsewhere classified, lumbar region, initial encounter for fracture; K76.9 Liver disease, unspecified

== ENCOUNTER → 2017-10-13 | Outpatient (CLI) | payer OTHER ==
[~2017-10-13] MED LIST changes: -OPTIRAY 320 IV PRN
[2017-10-13 18:26] LABS: EOS % 0.5 %; EOS ABS # 0.03 K/uL (0-0.5); HEMATOCRIT 27.4 % (37-47); HEMOGLOBIN 9.1 g/dL (12.0-16.0); IG# 0.17 K/uL (0.00-0.02); LYMPH % 13.1 %; LYMPH ABS # 0.78 K/uL (1.2-3.4); MEAN CELL VOLUME 95.5 fL (80-100); MEAN CORPUSCULAR HEMOGLOBIN 31.7 pg (25-34); MEAN CORPUSCULAR HGB CONC 33.2 g/dl (32-36); MEAN PLATELET VOLUME 10.1 fL (7.4-10.4); MONO % 11.4 %; MONO ABS # 0.68 K/uL (0.11-0.59); NEUT % 72.1 %; NEUT ABS # 4.29 K/uL (1.4-6.5); PLATELET COUNT 105 K/uL (130-400); RED CELL DISTRIBUTION WIDTH CV 17.1 % (11.5-14.5); RED CELL DISTRIBUTION WIDTH SD 56.7 fL (36.4-46.3); WHITE BLOOD COUNT 5.95 K/uL (4.8-10.8)
[2017-10-13 18:35] LABS: ALBUMIN 3.5 gm/dl (3.4-5.0); ALT/SGPT 18 U/L (12-78); AST/SGOT 14 U/L (15-37); BLOOD UREA NITROGEN 7 mg/dl (7-18); CALCIUM 8.1 mg/dl (8.5-10.1); CARBON DIOXIDE 29 mmol/L (21-32); CREATININE 0.81 mg/dl (0.60-1.20); GLUCOSE 80 mg/dl (70-99); POTASSIUM 4.4 mmol/L (3.5-5.1); SODIUM 137 mmol/L (136-145)
[2017-10-13 18:38] LABS: ALKALINE PHOSPHATASE 89 U/L (45-117); TOTAL PROTEIN 5.9 gm/dl (6.4-8.2)
== END | disposition home or self-care (01) ==
LOC: C.LABSPEC 18:08
PROVIDERS: ATTEND Internal Medicine Hematology & Oncology
DX: C34.11 Malignant neoplasm of upper lobe, right bronchus or lung (principal)

== ENCOUNTER → 2017-10-21 | Outpatient (CLI) | payer OTHER ==
[~2017-10-21] MED LIST changes: +GADAVIST IV PRN; +PROC10TA PO
--- NOTE | 2017-10-21 11:21 | DIAGNOSTIC IMAGING REPORT ---
Brain MRI WITH AND WITHOUT CONTRAST HISTORY: *[facility] PROTOCAL,SECONDARY MALIGNANT NEOPLASM BRAIN TECHNIQUE: Multiplanar multisequence MRI of the brain was performed both before and after the intravenous administration of contrast. COMPARISON STUDY: Brain MRI 05/24/2017. FINDINGS: No areas of restricted diffusion to suggest acute infarction. There is no hematoma or midline shift. Mild mucosal thickening within the left max a sinus and mastoid air cells. The ventricles are normal in size. The major vascular flow-voids at the skull base are well-maintained. There are few scattered punctate foci of T2 hyperintensity seen within the white matter of the supratentorial brain. These are nonspecific but favor mild microvascular ischemic change. The majority intracranial metastatic lesion seen on the prior study have resolved. There are 2 rim-enhancing lesions remaining seen within the periventricular white matter of the left frontal lobe measuring 8 mm and the periventricular white matter of the left parietal lobe measuring 4 mm. The 8 mm left frontal lobe lesion has increased in size from the prior study when it measured 5 mm. The 4 mm left parietal lesion may be new from the prior study. Decrease in size in the right anterior temporal lobe lesion which measures 4 mm, previously measuring 8 mm. Stable 5 m T1 hypointense focus within the clivus. This may represent a metastatic focus. IMPRESSION: 1. The majority of the multiple intracranial metastatic lesions seen on the prior study have resolved. A 4 mm lesion within the right anterior temporal lobe has decreased in size. However, there is a new 4 mm left parietal lobe lesion and increase in size of an 8 mm left frontal lobe lesion as described above. Therefore, these findings are consistent with a mixed response. 2. No acute infarct. 3. Stable 5 mm hypodense focus within the clivus which may represent a metastatic lesion. Electronically signed by: Ryan Guzman M.D. 10/21/2017 11:19 AM Dictated Date/Time: 10/21/2017 11:09 AM
== END | disposition home or self-care (01) ==
LOC: C.MRI 10:00
PROVIDERS: ATTEND Physician Assistant Medical
DX: C79.31 Secondary malignant neoplasm of brain (principal); C34.11 Malignant neoplasm of upper lobe, right bronchus or lung